=== PATIENT | male | born 1930 | race Caucasian/White ===

== ENCOUNTER 2017-02-22 12:05 | Emergency (ER) | payer MEDICARE, OTHER ==
[2017-02-22 13:33] VITALS: BP 162/70
--- NOTE | 2017-02-22 13:57 | UC ---
Hand/Wrist HPI - HPI Summary HPI Summary: 86 yo male with 6-8 + weeks of progressively worsening right arm swelling/ redness has weeped no f/c no trauma has fistula in right arm in anticipation of dialysis down the road placed >6 months ago had doppler study 2 weeks ago [facility]...reportedly no clot - History Of Current Complaint Chief Complaint: UCSkin Stated Complaint: RIGHT WRIST RED,SWOLLEN,WARM Time Seen by Provider: 02/22/17 13:27 Hx Obtained From: Patient Onset/Duration: Sudden Onset, Lasting Weeks Severity Initially: Mild Severity Currently: Mild Pain Intensity: 3 - mid forearm Pain Scale Used: 0-10 Numeric Character Of Pain: Dull Aggravating Factor(s): Other - touch Associated Signs And Symptoms: Positive: Swelling, Redness Related History: Dominant Hand Right - Allergies/Home Medications Allergies/Adverse Reactions: Allergies Allergy/AdvReac Type Severity Reaction Status Date / Time No Known Allergies Allergy Verified 02/22/17 13:22 Home Medications: Home Medications ALPRAZolam TAB* [Xanax TAB*] 0.25 mg PO Q6H PRN 02/22/17 [History Confirmed ] Calcium Polycarbophil [Fiber Tabs] 0.52 gm PO Q4H 02/22/17 [History Confirmed ] Diphenhydramine HCl 50 mg PO BEDTIME 02/22/17 [History Confirmed 02/22/17] Lactobacillus [Probiotic] 1 cap PO DAILY 02/22/17 [History Confirmed 02/22/17] Magnesium [Magnesium] 400 mg PO BID 02/22/17 [History Confirmed 02/22/17] Megestrol Acetate (Appetite) [Megestrol Acetate] 625 mg PO DAILY 02/22/17 [ History Confirmed 02/22/17] Nebivolol TAB (NF) [Bystolic TAB (NF)] 5 mg PO DAILY 02/22/17 [History Confirmed 02/22/17] Omeprazole CAP* [Prilosec CAP* 20 MG] 20 mg PO DAILY 02/22/17 [History Confirmed 02/22/17] PMH/Surg Hx/FS Hx/Imm Hx Previously Healthy: Yes Cardiovascular History: Hypertension GI/ History: Renal Disease - Surgical History Surgical History: Yes Surgery Procedure, Year, and Place: 1948 left nephrectomy; cervical discectomy ; endarectomy left carotid 11/10, bladder tumor removed 1979, turp 1982, right carotid stent 04/07,esophageal stretching in and AND 2015, bilat cataract , anemia. surgery 01/10 - Family History Known Family History: Positive: Cardiac Disease, Hypertension - Social History Alcohol Use: Daily Alcohol Amount: vodka Substance Use Type: None Smoking Status (MU): Former Smoker Type: Cigarettes Amount Used/How Often: 1 pack/day Have You Smoked in the Last Year: No When Did the Patient Quit Smoking/Using Tobacco: 1979 - Immunization History Most Recent Influenza Vaccination: 2012 Review of Systems Constitutional: Negative Skin: Negative Eyes: Negative ENT: Negative Respiratory: Negative Cardiovascular: Negative Gastrointestinal: Negative Genitourinary: Negative Motor: Negative Neurovascular: Negative Musculoskeletal: Edema, Myalgia Neurological: Negative Psychological: Negative All Other Systems Reviewed And Are Negative: Yes Physical Exam Triage Information Reviewed: Yes Appearance: Well-Appearing, No Pain Distress, Well-Nourished Vital Signs: Initial Vital Signs Temp 98.1 F 02/22/17 13:23 Pulse 63 02/22/17 13:23 Resp 20 02/22/17 13:23 BP 162/70 02/22/17 13:23 Pulse Ox 100 02/22/17 13:23 Vital Signs Reviewed: Yes Eyes: Positive: Conjunctiva Clear ENT: Negative: Hearing grossly normal, Nasal congestion, Nasal drainage, Trismus , Muffled/hoarse voice Neck: Positive: Supple, Nontender, No Lymphadenopathy Respiratory: Positive: No respiratory distress, No accessory muscle use, Crackles - R>L. Negative: Lungs clear Cardiovascular: Positive: RRR Musculoskeletal: Positive: Edema @ Neurological: Positive: Alert Psychological Exam: Normal Skin Exam: Other - see image Hand/Wrist Course/Dx - Course Course Of Treatment: Pt refuses to go to ER. States he went there and was already worked up - Differential Dx/Diagnosis Provider Diagnoses: Lymphedema right arm. cellulitis. ? pneumonia Discharge - Discharge Plan Condition: Stable Disposition: HOME Prescriptions: Amoxicillin/Clavulanate TAB* [Augmentin TAB 500 mg*] 500 mg PO BID #14 tab Patient Education Materials: Cellulitis (ED), Lymphedema (ED), Pneumonia (ED) Referrals: Meliton Sheriff MD [Primary Care Provider] - 3 Days Additional Instructions: if you change your mind I suggest you go to the ER for further evaluation Images Front/Back of Body, Lg (Moffat): 1 - marked edema and redness from here down
--- NOTE | 2017-02-22 14:07 | RAD ---
Indication: Right arm swelling. 2 views of the right arm demonstrates soft tissue swelling especially in the ulnar aspect of the elbow. No fracture is identified. Degenerative changes of the radiocarpal joint is noted. IMPRESSION: Soft tissue swelling especially in the ulnar aspect without fracture.
--- NOTE | 2017-02-22 14:09 | RAD ---
INDICATION: Right-sided rales COMPARISON: January 23, 2016 TECHNIQUE: PA and lateral dual-energy views were obtained. FINDINGS: Bones/Soft Tissues: There are no acute bony findings. Cardiomediastinal: The cardiomediastinal silhouette is normal. There may some calcifications compatible with old granulomatous disease Lungs: There are bibasilar infiltrates left greater than right. There is hyperinflation with presumed chronic interstitial changes Pleura: Suspect tiny bilateral effusions. Other: Partial eventration right hemidiaphragm, unchanged IMPRESSION: RADIOGRAPHIC ADMINISTRATIONS OF COPD WITH CHRONIC INTERSTITIAL CHANGES. NEW BIBASAL INFILTRATES. SUGGEST FOLLOW-UP.
== END 2017-02-22 14:33 | disposition home or self-care (01) ==
LOC: UCCORT 12:05
DX: I89.0 Lymphedema, not elsewhere classified (principal); L03.113 Cellulitis of right upper limb; I10 Essential (primary) hypertension; N28.9 Disorder of kidney and ureter, unspecified; Z90.5 Acquired absence of kidney; Z98.42 Cataract extraction status, left eye; Z98.41 Cataract extraction status, right eye; Z87.891 Personal history of nicotine dependence
CPT/HCPCS: 71020; 99212; G0463

== ENCOUNTER 2017-06-05 06:13 | Day surgery (SDC) | payer MEDICARE, BC ==
--- NOTE | 2017-05-09 16:03 | HP ---
CC: Dr. Ward * PREOPERATIVE HISTORY AND PHYSICAL: DATE OF SURGERY: 05/22/17 This patient is scheduled for same-day surgery admission by Dr. Abad on 05/22/17. ATTENDING SURGEON: Dominick Abad MD *(dictated by Pily Strickland NP). CHIEF COMPLAINT: Chronic kidney disease. HISTORY OF PRESENT ILLNESS: The patient is an 87-year-old male referred to Dr. Abad by Dr. Pisano for consideration for laparoscopic placement of peritoneal dialysis catheter. The patient has been suffering with chronic kidney disease; he underwent placement of an AV fistula in the right upper extremity in December 2015 and this is functioning well, but has never been accessed for the purpose of hemodialysis. The patient still urinates and his creatinine is followed regularly through Dr. Ward's office. The most recent creatinine level on 02/16, was 2.24 and it has been within that range since December 2016. The patient is strongly considering his options of dialysis and prefers the idea of peritoneal dialysis that he can do at home. His accompanied him to the appointment today and is participating in the education related to peritoneal dialysis. Dr. Abad examined the patient and discussed the nature of laparoscopic peritoneal dialysis catheter placement and has recommended buried dialysis catheter placement. Dr. Abad outlined the relevant risks, benefits, and alternatives. Today, I reviewed the typical same-day surgery and the postoperative care and recovery. The patient and his has had a chance to ask questions and stated that they understand the information and are satisfied with the answers given to their questions. The patient will sign consent on the day of surgery. 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 diff; hypertension, irritable bowel syndrome, renal artery stenosis and chronic kidney disease; the patient also has spinal issues and underwent multiple procedures and steroid injections for this. PAST SURGICAL HISTORY: Left nephrectomy around 1949, transurethral resection for bladder cancer and followup radiation in 1979; anterior cervical diskectomy in 1997; AV fistula right upper extremity December 2015; right carotid artery stent 2005; left carotid endarterectomy with patch 2010; cataract surgery 2010, endoscopy with stretching of the esophagus 2011. MEDICATIONS: 1. Aggrenox 200/25 mg one tablet p.o. b.i.d. and the patient was advised to hold the Aggrenox for 5 days preoperatively and take the last dose 05/16/17. 2. Allopurinol 100 mg daily. 3. Amiloride 5 mg b.i.d. 4. Bystolic 5 mg daily. 5. Calcitriol 0.25 mcg daily. 6. Crestor 5 mg daily. 7. Bentyl 20 mg up to 4 tablets daily. 8. Diphenhydramine 50 mg 1 to 2 at bedtime. 9. Omeprazole 20 mg p.o. b.i.d. 10. Hydrocodone 10/300 mg p.r.n. back pain. 11. Ranitidine 75 mg p.o. p.r.n. He takes the following supplements: 1. Fiber capsule. 2. Fish oil. 3. Magnesium oxide. 4. Multivitamin. 5. Probiotic capsule. 6. Lactate; he also takes megestrol 625 mg/5 mL daily. 7. He uses hydroxyzine 25 mg p.r.n. 8. Simethicone 1 tablet at bedtime. ALLERGIES: No known drug allergies. FAMILY HISTORY: No known anesthesia complications, bleeding tendencies, or clotting disorders. SOCIAL HISTORY: He is and his accompanies him to the visit today. He is a former smoker of a pack a day for 30 years and quit in 1979. He occasionally drinks alcohol. 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 REVIEW OF SYSTEMS: Constitutional: He reports feeling generally weak especially if he tries to stand for prolonged periods of time. He suffers from low back pain; he uses a cane for stability; his states that he has had several episodes of falling; he states that his left hand and his left lower extremity are weaker than the right. Endocrine: No diabetes or thyroid disease. Hematologic: No easy bruising or bleeding. No history of deep vein thrombosis or pulmonary embolism. He believes that he had blood transfusions in 2005. Respiratory: He has a dry cough and audible bibasilar rales; preoperative chest x-ray PA and lateral 05/08/17, revealed mild basilar interstitial edema, stigmata of COPD and emphysema. No pleural effusion or pneumothorax. Cardiovascular: No anginal chest pain. No syncopal episodes. History of carotid artery stenosis with stenting and endarterectomy and patch as described in past surgical history. Gastrointestinal: No nausea or vomiting. He reports a history of C. diff in November 2015; currently he is coping with loose stools and using Lomotil. His appetite is fair. He suffers from GERD. Genitourinary: He continues to be able to urinate and is followed by Dr. Ward for chronic kidney disease. 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 Uses a cane for stability. Skin: No ulcerations. Neurologic: No headache or blurred vision. Gait is somewhat unsteady; he has a tendency to fall. He requires assistance with transfers from chair to exam table. General: No previous anesthesia complications. He wears bilateral hearing aids. PHYSICAL EXAMINATION GENERAL SURVEY: The patient is an 87-year-old male, well developed, well nourished, in no acute distress. VITAL SIGNS: Height 67 inches, weight 130 pounds, body mass index 20.4. Blood pressure 150/70, pulse 66 and regular, respiratory rate 16, and temperature 98.5. HEENT: Benign. NECK: Supple. No cervical lymphadenopathy. LUNGS: Audible bibasilar rales. No wheezes. Upper lung chavez are clear. HEART: Regular rate and rhythm. No murmurs or rubs appreciated. ABDOMEN: Active bowel sounds. Well-healed left upper quadrant incision consistent with retroperitoneal approach for left nephrectomy. Soft, nondistended, and nontender throughout. No obvious masses, organomegaly or abdominal wall hernias. BACK: No CVA tenderness. EXTREMITIES: Warm and without edema. The right upper extremity has an AV fistula with a palpable thrill and audible bruit. The left handgrip is weaker than the right. The patient is somewhat unsteady and uses a cane for stability. The lower extremities are without edema. GENITALIA EXAM: Deferred. RECTAL EXAM: Deferred. NEUROLOGIC: Alert and oriented x3. SKIN: Warm, dry, and intact. IMPRESSION: End-stage renal disease. PLAN: Same-day surgery admission to Dr. Abad's service on 05/22/17 , for a laparoscopic placement of buried peritoneal dialysis catheter. NELA STRICKLAND, CARPET FLOOR LAYER APPRENTICE [id number]/[facility] #: [id number] DARRYL
[~2017-06-05 06:13] MED LIST: Buffered Lidocaine 0.9% SYRIN* 5 ML/SYR SYRINGE INTRADERM ONE; Dexamethasone IV* 4 MG/ML 1 ML (4 MG) IV SLOW PU ONE; Famotidine IV* 10 MG/ML 2 ML (20 mg) IV ONE; NS 0.45% 1000 ML BAG* 1,000 ML IV SCH
[2017-06-05] MEDS ORDERED: Buffered Lidocaine 0.9% SYRIN* 5 ML/SYR SYRINGE ONE (06:30)
[2017-06-05] MEDS ORDERED: Dexamethasone IV* 4 MG/ML 1 ML (4 MG) ONE (06:30)
[2017-06-05] MEDS ORDERED: Famotidine IV* 10 MG/ML 2 ML (20 mg) ONE (06:30)
[2017-06-05] MEDS ORDERED: Heparin VIAL(*) 5000 UNITS/ML VIAL (FIVE THOUSAND) ONE (06:30)
[2017-06-05] MEDS ORDERED: ceFAZolin 2 GM PREMIX (*) 50 ML IVPB ONE (06:30)
[2017-06-05] MEDS ORDERED: Bupivacaine 0.25% SDV* 30 ML ONE (07:14)
[2017-06-05] MEDS ORDERED: Heparin DIALYSIS ONLY(*) 1,000 UNITS/ML VIAL ONE (07:15)
--- NOTE | 2017-06-05 09:20 | SURGPN ---
Brief Operative Note - Surgery Procedures: Procedures Pre-OP Diagnoses: ESRD Post-op Diagnosis: same Procedure: Laparoscopic placement of peritoneal dialysis catheter Surgeon: Pollo Asst: none Anethesia: STEFANIE EBL: minimal IVF: minimal Specimen: none Drains: 57cm curlcath
[2017-06-05] MEDS ORDERED: Ondansetron INJ* 2 MG/ML VIAL IV PRN (09:23)
[2017-06-05] MEDS ORDERED: fentaNYL* 50 MCG/ML 2 ML VIAL (100 MCG VIAL) IV PRN (09:23)
[2017-06-05 10:26] VITALS: BP 172/63
--- NOTE | 2017-06-20 04:38 | OP ---
CC: Dr. Matthew Ward * DATE OF OPERATION: 06/05/17 - [facility] DATE OF : 32 SURGEON: Dominick Abad MD SCHEDULE MAKER: None. ANESTHESIOLOGIST: Amado Carrillo MD ANESTHESIA: General. PRE-OP DIAGNOSIS: End-stage renal disease. POST-OP DIAGNOSIS: End-stage renal disease. OPERATIVE PROCEDURE: Laparoscopic placement of peritoneal dialysis catheter. ESTIMATED BLOOD LOSS: Minimal. IV FLUIDS: Minimal. SPECIMEN: None. DRAINS: A 57 cm Curl Cath placed intraabdominally. DESCRIPTION OF PROCEDURE: The patient was identified in the preoperative area. Consent signed. The patient was marked, brought to the operating room and placed on the operating table in a supine position. Preoperative antibiotics were given. Sequential devices were placed on bilateral lower extremities. General anesthesia was induced. The patient's abdomen was prepped and draped in a standard surgical fashion. A time-out was performed. A subcostal incision on the left upper quadrant was made. This was deepened down the anterior fascia, which was elevated, and a Veress needle inserted into the abdominal cavity, which was allowed to insufflate to a pressure of 15 mmHg. The patient tolerated the insufflation well. A Veress needle was removed and then a 8-mm trocar was inserted. Laparoscope was inserted through this and there was no evidence of injury with the trocar insertion or with the Veress needle. Review of the abdomen showed omental attachments to the right lower quadrant and the midline. Additional trocars were then placed in the following position, a 5 mm in the left lower quadrant. The patient was placed in a Trendelenburg position and review of the pelvis showed scant amount of free fluid. The small bowel was pink and viable without any significant adhesions. Decision was made that the patient would not require an omentopexy because of the omentum already attached to the right lower quadrant and midline. Next, a 57 cm Curl Cath was opened up, it was inserted into the abdominal cavity through the 8 mm trocar, placed into the deep pelvis. Next, a 5 mm trocar was inserted by tunneling this along the left rectus muscle. This tubing was grasped and brought out through this site ensuring that both cuffs were within the abdominal wall. Next, the trocar was removed. The tubing was then tunnelled superiorly and then inferiorly to the point on the skin that we had chosen while the patient was in the preoperative area, marking and knowing his belt line. We then hooked the tubing up to dialysate, which infused with ease and also drained with similar ease. We then allowed the abdomen to collapse and the left upper quadrant port site was reapproximated with 0 Polysorb suture and all incisions were reapproximated with 4- 0 Monocryl and subcuticular sutures. Steri-Strips and sterile dressing were applied. The patient tolerated the procedure well, was transferred to the PACU in stable condition. [id number]/[facility] #: [id number] MTDD
== END 2017-06-05 11:02 | disposition home or self-care (01) ==
LOC: OR 06:13
PROVIDERS: ATTEND Surgery
DX: I12.0 Hypertensive chronic kidney disease with stage 5 chronic kidney disease or end stage renal disease (principal); N18.6 End stage renal disease; Z99.2 Dependence on renal dialysis; I69.354 Hemiplegia and hemiparesis following cerebral infarction affecting left non-dominant side; M10.9 Gout, unspecified; K21.9 Gastro-esophageal reflux disease without esophagitis; J44.9 Chronic obstructive pulmonary disease, unspecified; I73.00 Raynaud's syndrome without gangrene; Z79.02 Long term (current) use of antithrombotics/antiplatelets; Z87.891 Personal history of nicotine dependence; Z85.51 Personal history of malignant neoplasm of bladder
CPT/HCPCS: J0690; J1100; J1644

== ENCOUNTER 2017-11-21 13:20 | Emergency (ER) | payer MEDICARE, BC ==
[2017-11-21 15:28] VITALS: BP 133/38
--- NOTE | 2017-11-21 15:50 | UC ---
Skin Complaint HPI - HPI Summary HPI Summary: 87 year old male with right hand complaint. woke up 2 nights ago in the middle of the night with pain in the right wrist. since then the pain continues and now the hand is swollen and warm. HIs states that he has a hx of gout in the right wrist. The patient has a HD fistula in the right AC. It is not used because he does peritoneal dialysis. The fistula was placed by Dr Velasquez at [facility] in [place]. The Fistula has positive Bruit and Thrill. Pos, strong radial pulse right side, equal to left. Cap refill less than 3 seconds right hand. patient has hx of Raynauds so left fingers are blue and cold. The last time he had gout he was treated by [facility]. His is mostly concerned that he has Gout again. He has taken Vicodin which helps some. Last time the hand swelling went all the way up to the shoulder but this time just at the wrist and beyond that. has had some coffee cake more than normal as of recent. no SOB above and beyond normal as he has COPD. no fever. [ End ] - History of Current Complaint Chief Complaint: UCUpperExtremity Stated Complaint: RIGHT HAND POSSIBLE GOUT Hx Obtained From: Patient, Family/Forepart Rounder Onset/Duration: Gradual Onset Skin Exposure Onset/Duration: Weeks Ago Timing: Constant Onset Severity: Mild Current Severity: Moderate Pain Intensity: 8 - Allergy/Home Medications Allergies/Adverse Reactions: Allergies Allergy/AdvReac Type Severity Reaction Status Date / Time lactose Allergy GI Upset Verified 11/21/17 15:29 Home Medications: Home Medications ALPRAZolam TAB* [Xanax TAB*] 0.25 mg PO Q6H PRN 11/21/17 [History Confirmed ] FLUoxetine CAP* [PROzac CAP*] 20 mg PO DAILY 11/21/17 [History Confirmed ] Fluticasone/Vilanterol MDI(NF) [Breo Ellipta MDI (NF)] 1 puff INH DAILY [History Confirmed 11/21/17] Nebivolol (NF) [Bystolic (NF)] 10 mg PO DAILY 11/21/17 [History Confirmed ] Umeclidin 62.5 MDI(NF) [Incruse ELLIPTA MDI (NF)] 62.5 mcg IN DAILY 11/21/17 [ History Confirmed 11/21/17] Review of Systems Skin: Other - right hand redness and pain with swelling Is Patient Immunocompromised?: No All Other Systems Reviewed And Are Negative: Yes PMH/Surg Hx/FS Hx/Imm Hx Previously Healthy: Yes Endocrine History: Dyslipidemia Cardiovascular History: Cardiac Disease, Hypertension GI/ History: Gastroesophageal Reflux, Renal Disease Psychological History: Anxiety, Depression - Surgical History Surgical History: Yes Surgery Procedure, Year, and Place: Right Arm HD fistula 12/2015. 194 left nephrectomy. cervical discectomy . endarectomy left carotid 11/10. bladder tumor removed 1979. turp 1982. right carotid stent 04/07. esophageal stretching in and AND 2015, bilat cataract. anemia surgery 01/10 - Family History Known Family History: Positive: Cardiac Disease, Hypertension - Social History Occupation: Retired Lives: With Family Alcohol Use: None Alcohol Amount: vodka Substance Use Type: None Smoking Status (MU): Former Smoker Type: Cigarettes Amount Used/How Often: 1 pack/day Have You Smoked in the Last Year: No When Did the Patient Quit Smoking/Using Tobacco: quit 1979 - Immunization History Most Recent Influenza Vaccination: 2012 Physical Exam Triage Information Reviewed: Yes Appearance: Well-Appearing, No Pain Distress, Well-Nourished Vital Signs: Initial Vital Signs Temp 98.6 F 11/21/17 15:13 Pulse 85 11/21/17 15:13 Resp 16 11/21/17 15:13 BP 133/38 11/21/17 15:13 Pulse Ox 100 11/21/17 15:13 Vital Signs Reviewed: Yes Eye Exam: Normal ENT Exam: Normal Respiratory Exam: Normal Cardiovascular Exam: Normal Abdominal Exam: Normal Musculoskeletal: Positive: ROM Limited @, Edema @ - right hand Neurological Exam: Normal Psychological Exam: Normal Skin: Positive: Other - right hand with swelling, redness, tenderness to palpation. cap refill < 3 sec. peripheral pulses brisk and intact. 2(+) pitting edema in the wrist. normal proximal to that. no edema in the legs. Course/Dx - Course Course Of Treatment: With history per patient and of gout that was actual worse than this. They are aware we can not perform sono or do labs to rule out DVT / infection but want to try prednisone as he states he did in the past and it worked well. They are aware this is not a thorough work up but do not want to go to ED and will try this treatment but if any pain, redness, fever, swelling presents itself / worsens then they will go to [facility] [place]. They angélica try to see PCP in one day. They state there labs have been good as he gets them multiple times a week and had thorough labs 11 days ago - Diagnoses Provider Diagnoses: Gout right hand Discharge - Sign-Out/Discharge Documenting (check all that apply): Discharge - Discharge Plan Condition: Good Disposition: HOME Prescriptions: predniSONE TAB* [Deltasone TAB*] 40 mg PO DAILY 5 Days #10 tab Patient Education Materials: Gout (ED) Referrals: Meliton Sheriff MD [Primary Care Provider] - 1 Day Additional Instructions: If you develop fever, more fatigue, increased shortness of breath or the redness spreads up the arm please go to the Emergency room - Billing Disposition and Condition Condition: GOOD Disposition: HOME
== END 2017-11-21 16:01 | disposition home or self-care (01) ==
LOC: UCCORT 13:20
DX: M10.9 Gout, unspecified (principal); I10 Essential (primary) hypertension; F41.8 Other specified anxiety disorders; Z87.891 Personal history of nicotine dependence
CPT/HCPCS: 99213; G0463

== ENCOUNTER 2018-03-20 10:23 | Inpatient (IN) | payer MEDICARE, BC ==
--- NOTE | 2018-03-20 10:39 | ED ---
Complex/Multi-Sys Presentation - HPI Summary HPI Summary: 88 y/o male presents to the ED c/o 1x episode of vomiting this morning, in bed. Pt states he has been "feeling lousy" today. Associated sx: ABD discomfort in the mid ABD, confusion for the last few days. Pt's states pt has been increasingly forgetful. Denies CP. PMHx peritoneal dialysis (every night for 10 hours), started in Oct 2017. Pt had a cardiac cath (no stent) placed at [facility] placed last week. - History Of Current Complaint Chief Complaint: EDNauseaVomitDiarrh Time Seen by Provider: 03/20/18 10:31 Hx Obtained From: Patient Onset/Duration: Sudden Onset Location: Pain At: - mid ABD Associated Signs And Symptoms: Positive: Vomiting, Abdominal Pain, Other - confusion - Allergies/Home Medications Allergies/Adverse Reactions: Allergies Allergy/AdvReac Type Severity Reaction Status Date / Time lactose Allergy GI Upset Verified 11/21/17 15:29 Home Medications: Home Medications Aspirin [Ecotrin] 81 mg PO DAILY 03/20/18 [History Confirmed 03/20/18] Clopidogrel TAB* [Plavix TAB*] 1 tab PO DAILY 03/20/18 [History Confirmed ] Fluticasone/Vilanterol MDI(NF) [Breo Ellipta MDI 100/25(NF)] 1 puff PO DAILY [History Confirmed 03/20/18] Mupirocin 2% OINT* [Bactroban 2 % Oint*] 1 applic TOPICAL DAILY 03/20/18 [ History Confirmed 03/20/18] Nitroglycerin 0.4 mg SL Q5M PRN 03/20/18 [History Confirmed 03/20/18] Sodium Bicarbonate 1 tab PO DAILY 03/20/18 [History Confirmed 03/20/18] predniSONE TAB* [Deltasone TAB*] 5 mg PO DAILY 03/20/18 [History Confirmed 03/20] raNITIdine HCl [Zantac] 1 tab PO DAILY 03/20/18 [History Confirmed 03/20/18] PMH/Surg Hx/FS Hx/Imm Hx Previously Healthy: No Endocrine/Hematology History: Reports: Hx Anemia Denies: Hx Diabetes, Hx Systemic Lupus Erythematosus Cardiovascular History: Reports: Hx Coronary Artery Disease, Hx Hypertension Denies: Hx Congestive Heart Failure, Hx Pacemaker/ICD, Other Cardiovascular Problems/Disorders Respiratory History: Reports: Other Respiratory Problems/Disorders - ex smoker/ copd GI History: Reports: Hx Diverticulosis, Hx Gastroesophageal Reflux Disease - on meds, Hx Gastrointestinal Bleed - with diverticulitis, Hx Irritable Bowel - possible, Other GI Disorders - hsx of gi bleed 2nd to diverticulitis, esophogeal stretchingx2 History: Reports: Hx Renal Disease, Other Problems/Disorders - left nephrectomy 1949, bladder [id number] Denies: Hx Dialysis Musculoskeletal History: Reports: Hx Arthritis - back, shoulders, Hx Gout, Other Musculoskeletal History - hx of injections and L/R ablation L-4 L-5 S-1, osteo in left foot Denies: Hx Rheumatoid Arthritis Sensory History: Reports: Hx Cataracts - surgery bilat 2010, Hx Contacts or Glasses, Hx Hearing Aid Opthamlomology History: Reports: Hx Cataracts - surgery bilat 2010, Hx Contacts or Glasses Neurological History: Reports: Other Neuro Impairments/Disorders - PAIN CLINIC PATIENT Psychiatric History: Reports: Hx Anxiety - 10 years ago Denies: Hx Panic Disorder - Cancer History Cancer Type, Location and Year: BLADDER Hx Chemotherapy: No - Surgical History Surgery Procedure, Year, and Place: Right Arm HD fistula 12/2015. 194 left nephrectomy. cervical discectomy . endarectomy left carotid 11/10. bladder tumor removed 1979. turp 1982. right carotid stent 04/07. esophageal stretching in and AND 2015, bilat cataract. anemia surgery 01/10 Hx Anesthesia Reactions: No Infectious Disease History: No Infectious Disease History: Reports: Hx Clostridium Difficile, Hx Shingles Denies: Hx Hepatitis, Hx Human Immunodeficiency Virus (HIV), Hx of Known/ Suspected MRSA, Hx Tuberculosis, Hx Known/Suspected VRE, Hx Known/Suspected VRSA , History Other Infectious Disease, Traveled Outside the [place] in Last 30 Days - Family History Known Family History: Positive: None, Cardiac Disease, Hypertension - Social History Alcohol Use: None Alcohol Amount: vodka Substance Use Type: Reports: None Smoking Status (MU): Former Smoker Type: Cigarettes Amount Used/How Often: 1 pack/day Have You Smoked in the Last Year: No Review of Systems Constitutional: Negative Eyes: Negative ENT: Negative Cardiovascular: Negative Respiratory: Negative Positive: Abdominal Pain, Vomiting Genitourinary: Negative Musculoskeletal: Negative Skin: Negative Neurological: Other - confusion Psychological: Normal All Other Systems Reviewed And Are Negative: Yes Physical Exam - Summary Physical Exam Summary: Appearance: Ill-appearing, frail Skin: Warm Eyes: Normal ENT: Normal Neck: Supple, nontender Respiratory: Diffuse crackles in R lung. Cardiovascular: Mild bradycardia, HR in the high 50's, regular rhythm. Normal S1 , S2. Abdomen: Soft, nontender Musculoskeletal: Normal, Strength/ROM Intact. No peripheral edema. Neurological: Normal, A&Ox3 Psychiatric: Normal General: No acute distress Triage Information Reviewed: Yes Vital Signs On Initial Exam: Initial Vitals Temp Pulse Resp BP Pulse Ox 98.3 F 61 16 115/46 98 03/20/18 10:33 03/20/18 10:33 03/20/18 10:33 03/20/18 10:33 03/20/18 10:33 Vital Signs Reviewed: Yes Diagnostics - Vital Signs Vital Signs Temp Pulse Resp BP Pulse Ox 03/20/18 10:33 98.3 F 61 16 115/46 98 - Laboratory Result Diagrams: 03/20/18 12:08 03/20/18 12:08 Lab Statement: Any lab studies that have been ordered have been reviewed, and results considered in the medical decision making process. - Radiology CXR Xray Interpretation: Positive (See Comments) - RIGHT GREATER THAN LEFT BIBASILAR CONSOLIDATION. RECOMMEND FOLLOW-UP UNTIL RESOLUTION TO EXCLUDE UNDERLYING PULMONARY PARENCHYMAL PATHOLOGY. Radiology Interpretation Completed By: Radiologist - Additional Comments Diagnostic Additional Comments: EKG 1 - 11:11 - Sinus bradycardia @ [address] T changes, No T wave inversions. Low voltage Complex Multi-Symp Course/Dx Course Of Treatment: Pt has BNP 600's,blunting of B/L costophernic angles, and on peritoneal dialysis. Will need medical management for acute CHF and ESRD which may be related, and in exacerabtion. Accepted for admission under Dr. Danielle Pisano @ 13:00 - Diagnoses Provider Diagnoses: CHF (congestive heart failure), ESRD (end stage renal disease) on dialysis Discharge - Sign-Out/Discharge Documenting (check all that apply): Patient Departure - Discharge Plan Condition: Stable Disposition: ADMITTED TO [facility] - Billing Disposition and Condition Condition: STABLE Disposition: Admitted to [facility]
[2018-03-20] MEDS ORDERED: Ondansetron ODT TAB* 4 MG PO ONE (11:33)
--- NOTE | 2018-03-20 11:52 | RAD ---
HISTORY: left lung crackles COMPARISONS: May 08, 2017 VIEWS: 4: Frontal dual-energy and lateral views of the chest. FINDINGS: CARDIOMEDIASTINAL SILHOUETTE: The cardiomediastinal silhouette is normal. DEE: The dee are normal. PLEURA: The costophrenic angles are sharp. No pleural abnormalities are noted. LUNG PARENCHYMA: There is patchy alveolar opacification of the lung bases bilaterally, greater on the right than on the left. ABDOMEN: The upper abdomen is clear. There is no subphrenic gas. BONES AND SOFT TISSUES: No bone or soft tissue abnormalities are noted. OTHER: None. IMPRESSION: RIGHT GREATER THAN LEFT BIBASILAR CONSOLIDATION. RECOMMEND FOLLOW-UP UNTIL RESOLUTION TO EXCLUDE UNDERLYING PULMONARY PARENCHYMAL PATHOLOGY.
[2018-03-20 12:18] LABS: ABS Basophils 0 10^3/ul (0-0.2); ABS Eosinophils 0 10^3/ul (0-0.6); ABS Lymphocytes 0.6 10^3/ul (1.0-4.8); ABS Monocytes 0.5 10^3/ul (0-0.8); ABS Neutrophils 6.9 10^3/ul (1.5-7.7); ABS Nucleated RBC 0 10^3/ul; Eosinophil % 0.1 % (0-6); Hematocrit 33 % (42-52); Hemoglobin 10.7 g/dl (14.0-18.0); Lymphocyte % 7.8 % (25-47); Mean Corpuscular HGB Conc 33 g/dl (31-36); Mean Corpuscular Hemoglobin 33 pg (27-31); Mean Corpuscular Volume 100 fL (80-94); Mean Platelet Volume 6.1 um3 (7.4-10.4); Nucleated Red Blood Cells % 0.1; Platelet Count 209 10^3/ul (150-450); Red Blood Count 3.27 10^6/ul (4.00-5.40); Red Cell Distribution Width 15 % (10.5-15); White Blood Count 8.1 10^3/ul (3.5-10.8)
[2018-03-20 12:33] LABS: EGFR Non-African American 16.6 (>60)
[2018-03-20] MEDS ORDERED: NS 0.9% 500 ML* 500 ML IV ONE (13:49)
[2018-03-20] MEDS ORDERED: Albuterol 2.5 MG/3 ML NEB.SOL* (0.083%) INH PRN (13:49)
[2018-03-20] MEDS ORDERED: Acetaminophen TAB* 325 MG PO PRN (13:49)
[2018-03-20] MEDS ORDERED: Potassium Chlor TAB* 20 MEQ TAB.ER PO ONE (13:49)
[2018-03-20] MEDS ORDERED: Albuterol/Ipratropium NEB.SOL* Albuterol 2.5 MG/Ipratropium 0.5 MG 3 ML INH SCH ×2 (14:00→19:00)
[2018-03-20] MEDS ORDERED: predniSONE TAB* 20 MG PO SCH (14:00)
[2018-03-20] MEDS ORDERED: Cefepime 1 GM in Dextrose(*) 1 GM/50 ML BAG IV SCH (14:00)
[2018-03-20] MEDS ORDERED: Vancomycin per Pharmacy* NOTE FOLLOW UP SCH (14:00)
[2018-03-20] MEDS ORDERED: metroNIDAZOLE IV 500 MG/100ML* 500 MG/100 ML BAG IVPB SCH (14:00)
[2018-03-20] MEDS ORDERED: metroNIDAZOLE IV 500 MG/100ML* 500 MG/100 ML BAG IVPB ONE (14:40)
[2018-03-20] MEDS ORDERED: Vancomycin(*) 1,000 MG in NS 0.9% 250 ML* 250 ML IVPB ONE (15:00)
--- NOTE | 2018-03-20 16:05 | RAD ---
INDICATION: 88-year-old presents to the emergency department with Rales . Renal failure. Abdominal pain. COMPARISON: Chest x-ray same date TECHNIQUE: Axial source images were obtained from the thoracic inlet to the symphysis pubis following administration of oral contrast only as requested Coronal and sagittal reconstructed images were acquired. CHEST FINDINGS: Neck/thyroid: The visualized neck to include the thyroid appear normal. Chest wall: There are no acute abnormalities of the bony thorax or chest wall. There is no supraclavicular, infraclavicular, or axillary lymphadenopathy. Lungs : There is reticulonodular infiltrative change in the lower lobes bilaterally and in the right upper lobe. There is peribronchial thickening or lung bases right greater than left. This likely reflects chronic change but follow-up is recommended. Cardiomediastinal structures: The heart is normal in size. There is no pericardial effusion. There is no evidence of aortic aneurysm or dissection. There are coronary artery calcifications. The pulmonary vessels appear normal. There is no mediastinal or hilar adenopathy. There are calcified missile lymph nodes consistent with old granulomatous disease. The esophagus appears normal. Pleura : There are no pleural-based masses or effusions. ABDOMINAL/PELVIC FINDINGS: Liver: The liver is normal in size. There are no masses on noncontrast evaluation. There is no ductal dilatation. Gallbladder: The gallbladder is contracted. There are probable gallstones. Spleen: There are splenic granulomas. There is no evidence of a mass on noncontrast evaluation. Pancreas: There is no evidence of pancreatic mass or ductal dilatation. Adrenal glands: There is no evidence of adrenal mass. Kidneys: Noncontrast CT appearance the right kidney is remarkable solely for vascular calcifications. There is left nephrectomy. Adenopathy: There is no evidence of adenopathy by size criteria. Fluid collections: There is a small amount of free fluid. The patient is on peritoneal dialysis. Vessels:There are atherosclerotic changes of the aorta. There is no focal aneurysm. There is probably a short segment distal aortic dissection. This likely chronic. The IVC is unremarkable GI tract: The oral contrast is confined to the stomach and proximal small bowel. There are multiple dilated loops of small bowel there are fluid-filled. The findings are compatible with a partial, mid small bowel obstruction. The transition zone appears to be deep within the pelvis. There is a small amount of air within the colon which is decompressed Pelvic organs: The prostate and seminal vesicles appear normal Bladder: There are no bladder masses. Abdominal and pelvic soft tissues: There is a peritoneal dialysis catheter entering from a lower left abdominal approach. Osseous structures: There are no acute osseous findings. IMPRESSION: 1. Partial small bowel obstruction. Suggest follow-up radiographs. 2. Reticulonodular infiltrates in lung bases. Suggest follow-up. 3. Probable gallstones in contracted gallbladder. 4. Evidence of old granulomatous disease. 5. Small amount of free fluid related to peritoneal dialysis.
[2018-03-20] MEDS ORDERED: Metoprolol Tartrate IV* 1 MG/ML 5 ML VIAL IV PRN (16:37)
--- NOTE | 2018-03-20 16:45 | PN ---
Hospitalist Progress Note Date of Service: 03/20/[address] finding of partial sbo, Pt to be NPO gentle hydration KUB in AM, patient is NOT actively vomiting, abd non distended, will hold ng tube for now, if vomits will place NG tube,
--- NOTE | 2018-03-20 17:59 | HP ---
CC: Dr. Sheriff; Dr. Ward; Dr. Albert * HISTORY AND PHYSICAL: DATE OF ADMISSION: 03/20/18 PRIMARY CARE PROVIDER: Dr. Sheriff. CONSULTING FAMILY AND CONSUMER EDUCATION TEACHER: Dr. Ward. CONSULTING INFECTIOUS DISEASE SPECIALIST: Dr. Albert. ATTENDING PROVIDER: Dr. Pisano * (DICTATED BY ACE JOE NP) CHIEF COMPLAINT: 1. Nausea. 2. Vomiting. HISTORY OF PRESENT ILLNESS: Mr. Farah is an 88-year-old male patient with pretty extensive past medical history. He has a history of end-stage renal disease, history of CVA, bladder cancer, carotid artery disease, history of renal artery stenosis, IBS, hypertension, gout, GERD, arthritis, history of CAD and COPD, who is coming into the ED today stating that this morning he woke up, he noted that he had brown foul material in his mouth, he spit it out, it came out and it looked like vomit. He says this was the first thing he noticed at 5: 00 this morning, he woke up like this. He says to his knowledge he had not been vomiting throughout the night and he had not vomited yesterday evening. He had been feeling well, fatigued, but no abdominal pain. He says his dialysate was noted to be clear he did note and his noted that he had a little bit more redness around that site. He denied having any chest pain or shortness of breath. He says he has had some abdominal discomfort to the lower abdomen. He says that he has been feeling short of breath for the last month to 2 months. There has been no coughing, no fevers, no chills that he is aware of. He states that he was concerned because of the vomit and he came in. There was no blood or coffee-ground emesis. He did have a bowel movement today. He says that he has not been noticing any diarrhea and again, he does have this lower abdominal cramping, but again, no cough or shortness of breath and no chills or fevers. He came in to the ED. There was concern his creatinine appeared to be worse and he appeared to be dehydrated. There was concern for chest x-ray findings as there was possible effusion or infiltrate in his right lower lobe. We were asked to evaluate for admission. PAST MEDICAL HISTORY: Significant for: 1. End-stage renal disease, on peritoneal dialysis. 2. Bladder cancer. 3. CVA. 4. Carotid artery disease. 5. Arthritis. 6. GERD. 7. Gout. 8. Hypertension. 9. IBS. 10. Renal artery stenosis. 11. CAD. 12. COPD. PAST SURGICAL HISTORY: 1. The patient has had bladder resection. 2. Right carotid artery stenting. 3. Left carotid endarterectomy. 4. Cardiac catheterization done 2 months ago at [facility] with angioplasty. 5. PD catheter placement. 6. Left kidney nephrectomy. 7. AV fistula to the right arm. MEDICATIONS: Home medications include: 1. Nitro 0.4 mg sublingual every 5 minutes x3 p.r.n. chest pain. 2. Bactroban 1 application topically to PD site. 3. Breo 1 puff inhaled daily. 4. Sodium bicarbonate 1 tablet daily. 5. Zantac 1 tablet p.o. daily. 6. Crestor 5 mg daily. 7. Prilosec 20 mg p.o. b.i.d. 8. Bystolic 10 mg p.o. daily. 9. Probiotic 1 capsule daily. 10. Multivitamin 1 tablet daily. 11. Megestrol acetate 625 mg p.o. daily. 12. Magnesium oxide 400 mg p.o. b.i.d. 13. Skippers 1 tablet every 6 hours as needed. 14. Fish oil 1000 mg p.o. b.i.d. 15. Diphenhydramine 25 mg p.o. at bedtime. 16. Dicyclomine 20 mg p.o. 4 times daily. 17. Plavix 1 tablet daily. 18. Calcitriol 1 tablet p.o. daily. 19. Aspirin 81 mg daily. 20. Amiloride 5 mg daily. 21. Allopurinol 100 mg p.o. daily. 22. Prednisone 5 mg daily. ALLERGIES TO MEDICATIONS: Include none. FAMILY HISTORY: His mother had bladder cancer. Father took his own life. SOCIAL HISTORY: The patient states he is a former smoker, quit in 1979. He does not drink. His surrogate decision maker is his . REVIEW OF SYSTEMS: There is no documented fever. He is denying any significant weight change. There was no double vision. He is denying having any ear discharge. He denies having any rhinorrhea and no sore throat, no thyroid enlargement and denies having any chest pain. There was abdominal pain per my HPI. There was 1 episode of nausea and vomiting. There has been no dysuria, no frequency. There has been no seizure, no loss of consciousness. No pruritus and no skin ulcerations. Review of 14 systems was completed, all others negative. PHYSICAL EXAMINATION GENERAL: At this time, Mr. Farah is an 88-year-old male patient. He is chronically ill-appearing. He is sitting in the ED stretcher. He does not appear to be in any acute distress. VITAL SIGNS: Blood pressure 117/45, pulse 59, respirations 16, O2 sat 93%, temperature 98.3. HEENT: Head: Atraumatic and normocephalic. Eyes: EOMs are intact. Sclerae anicteric and not pale. Throat: Oral mucosa appears to be dry. No oropharyngeal erythema. NECK: Supple. LUNGS: He had wheezing noted throughout bilaterally. He had crackles in his right base. He had equal diaphragmatic expansion. HEART: Sounds S1, S2. He had a regular rate and rhythm. No murmurs, rubs, or gallops. ABDOMEN: Soft. There was tenderness in the right lower and left lower quadrants. The PD catheter did have some erythema surrounding the site. No discharge was noted from the site, though however, he did have again tenderness along the lower quadrants. Bowel sounds were present. EXTREMITIES: Pulses were 2+ throughout. He is moving all 4 extremities. He is a little bit weaker on the left side from previous stroke, but again, no worse than his baseline. NEUROLOGICAL: Again, he is awake, alert, and oriented x3. Speech is clear. Tongue midline. Veneer Press Operator were equal, little weaker on the left. He had no obvious gross focal deficits. SKIN: Grossly intact. DIAGNOSTIC STUDIES/LAB DATA: His labs today are revealing a WBC of 8.1, RBC of 3.27, hemoglobin of 10.7, hematocrit of 33, platelet count of 209. Sodium 134, potassium 2.9, chloride of 94, bicarb 30, BUN 44. His creatinine is 3.51, which is elevated from his baseline of 2.6. His glucose 102, calcium 8.5, mag 2.3. Total bili 0.3, AST 24, ALT 17, alk phos 75. Troponin 0.03. His BNP was 639. Albumin of 2.6. TSH pending. He did have an EKG obtained today, which is showing a normal sinus rhythm with a PAC. He had no ST elevation noted. He does have T-wave flattening in V4, V5 , and V6 and also in II, III, and aVF. When you look back to the previous EKG, III and aVF were flat previously. The T-wave flattening in V4, V5 and V6 is now new. He did have a chest x-ray obtained today, which when I reviewed, I do appreciate what appears to be blunting of the costophrenic angle on the right side. It does look like there may be bilateral infiltrates. Radiology read it as right greater than left bibasilar consolidation, recommend followup for resolution of underlying pulmonary parenchymal pathology. Old medical records reviewed. ASSESSMENT AND PLAN: Mr. Farah is an 88-year-old male patient coming into the ED today with complaint of episode of vomiting this morning, waking up with vomit in his mouth. We were asked to evaluate for admission. He will be admitted under observation status for: 1. Question of aspiration pneumonitis. Again, on exam, he has wheezing and he has had crackles on the right side. X-ray is concerning for bilateral infiltrates. I am going to get a CT of the chest to better define this given his history of smoking. I am also going to put him on steroids, place him on cefepime and Flagyl to cover possible aspiration pneumonitis. I do have a call to Dr. Albert given his history of C. diff. He does have a left shift and we will place him on steroids. We will hydrate him. I will send off blood cultures. I will get Legionella and Strep pneumoniae antigens if we were able to and try to get a sputum culture from the patient as well and continue to follow him closely. 2. Abdominal discomfort. Again, I am concerned given the little bit redness around the catheter, I am placing him on vanco empirically for this. I did touch base with Dr. Ward who will evaluate the patient today. He is sending his nurse over for PD specimens to make sure there is no underlying peritonitis given his PD catheter. I will also CT the abdomen and pelvis. He is n.p.o. until this is performed. 3. Hypokalemia. I am replacing. I did touch base with Dr. Ward. 4. End-stage renal disease. His creatinine is a little bit worse. I am fearful that he is a little bit dry. I am going to give him fluids. We will repeat his labs in the morning and we will continue to monitor. 5. Bladder cancer. Follow up with his primary. 6. History of cerebrovascular accident and carotid artery disease. Continue aspirin, Plavix, statin therapy and secondary prevention. 7. Arthritis. Continue meds as prescribed. 8. Gastroesophageal reflux disease. Continue PPI therapy. He is also on an H2 brandon, continue with this. 9. Gout. Continue his allopurinol. 10. History of hypertension. His blood pressure has been in the one teens here. I suspect this was probably from dehydration. We will hold his diuretic that he is on. We will continue his beta-brandon with hold parameters. 11. Coronary artery disease. Continue aspirin, statin, beta-brandon therapy. I am going to try to get records from [facility] as far as his cath was about 2 months ago and we will continue to follow this. His EKG appears to be stable. There are no active signs of ischemia. He is not having any chest pain, so we will monitor. 12. Chronic obstructive pulmonary disease with exacerbation. He will be placed on again inhaled nebs standing with steroid and Dulera. 13. Renal artery stenosis. Continue his current medical regimen. 14. DVT prophylaxis: He is high risk. I will place him on heparin subcu. 15. Code status: Full code. 16. Fluids, electrolytes, and nutrition: N.p.o. pending CT abdomen and pelvis. TIME SPENT: Time spent on admission was 60 minutes, greater than half the time was spent [id number] with the patient obtaining my history and physical, other half of the time was spent going over the plan of care with the patient and implementing the plan of care. I discussed the plan of care with my attending, Dr. Pisano, she is in agreement. ACE JOE NP [id number]/[facility] #: [id number] DARRYL
[2018-03-20] MEDS: methylPREDNISolone SOD 40 MG* 1 ML VIAL IV SCH (18:22)
[2018-03-20] MEDS: Pantoprazole IV* 40 MG IV SCH (18:22)
[2018-03-20] MEDS: Heparin VIAL(*) 5000 UNITS/ML VIAL (FIVE THOUSAND) SUBCUT SCH ×2 (18:22→20:36)
--- NOTE | 2018-03-20 18:49 | RAD ---
Indication: Check NG tube placement. COPD. Former tobacco use. Hemodialysis. Comparison: CT of the same date. Technique: Upright AP 1746 hours Report: Tip of the NG tube except level of the gastric body. RIGHT greater than LEFT basilar pulmonary consolidation. Patchy rarefaction of the interstitial markings. Grossly clear pleural spaces. Negative for cardiomegaly. Enlarged central pulmonary arteries with peripheral attenuation favoring pulmonary arterial hypertension. Calcified RIGHT hilar lymph nodes. IMPRESSION: #. Acceptable position of the NG tube. #. Stigmata of obstructive lung disease and probable pulmonary arterial hypertension. #. RIGHT greater than LEFT basilar airspace consolidation suspicious for bronchopneumonia.
[2018-03-20] MEDS: Mometasone/Formoter 200/5 MDI INH SCH (19:45)
[2018-03-20] MEDS: Cefepime 1 GM in Dextrose(*) 1 GM/50 ML BAG IV SCH (20:36)
[2018-03-20] MEDS ORDERED: Magnesium Oxide TAB* 400 MG PO SCH (21:00)
[2018-03-20] MEDS ORDERED: CMC:Pantoprazole TAB (NF) 40 MG TAB PO SCH (21:00)
[2018-03-20] MEDS: metroNIDAZOLE IV 500 MG/100ML* 500 MG/100 ML BAG IVPB SCH (23:46)
[2018-03-21] MEDS ORDERED: Vancomycin Random Level* NOTE FOLLOW UP ONE (06:00)
[2018-03-21] MEDS: methylPREDNISolone SOD 40 MG* 1 ML VIAL IV SCH ×2 (06:09→17:24)
[2018-03-21] MEDS: metroNIDAZOLE IV 500 MG/100ML* 500 MG/100 ML BAG IVPB SCH ×2 (06:11→15:43)
[2018-03-21] MEDS: Heparin VIAL(*) 5000 UNITS/ML VIAL (FIVE THOUSAND) SUBCUT SCH ×2 (06:12→15:43)
[2018-03-21 07:08] LABS: INR 0.94 (0.77-1.02)
[2018-03-21 07:09] LABS: ABS Basophils 0 10^3/ul (0-0.2); ABS Eosinophils 0 10^3/ul (0-0.6); ABS Lymphocytes 0.6 10^3/ul (1.0-4.8); ABS Monocytes 0.3 10^3/ul (0-0.8); ABS Neutrophils 7.4 10^3/ul (1.5-7.7); ABS Nucleated RBC 0 10^3/ul; Eosinophil % 0 % (0-6); Hematocrit 29 % (42-52); Hemoglobin 9.8 g/dl (14.0-18.0); Lymphocyte % 6.7 % (25-47); Mean Corpuscular HGB Conc 34 g/dl (31-36); Mean Corpuscular Hemoglobin 33 pg (27-31); Mean Corpuscular Volume 97 fL (80-94); Mean Platelet Volume 6.3 um3 (7.4-10.4); Nucleated Red Blood Cells % 0; Platelet Count 209 10^3/ul (150-450); Red Blood Count 2.96 10^6/ul (4.00-5.40); Red Cell Distribution Width 15 % (10.5-15); White Blood Count 8.3 10^3/ul (3.5-10.8)
[2018-03-21 07:21] LABS: EGFR Non-African American 15.1 (>60)
[2018-03-21] MEDS: Mometasone/Formoter 200/5 MDI INH SCH ×2 (07:42→20:52)
[2018-03-21] MEDS: Calcitriol CAP* 0.25 MCG PO SCH (08:23)
[2018-03-21] MEDS: Clopidogrel TAB* 75 MG PO SCH (08:23)
[2018-03-21] MEDS: Aspirin EC TAB* 81 MG TAB.EC PO SCH (08:23)
[2018-03-21] MEDS ORDERED: Megestrol SUSP* 400 MG/10 ML UDC PO SCH (09:00)
[2018-03-21] MEDS ORDERED: Famotidine TAB* 20 MG PO SCH (09:00)
[2018-03-21] MEDS ORDERED: Atorvastatin* 10 MG TAB PO SCH (09:00)
[2018-03-21] MEDS ORDERED: Lactobacillus Acidophilus* 1 TAB PO SCH (09:00)
[2018-03-21] MEDS ORDERED: Sodium Bicarbonate (ANTACID)* 650 MG TAB PO SCH (09:00)
[2018-03-21] MEDS ORDERED: NEBIVOLOL 2.5 MG PO SCH (09:00)
[2018-03-21] MEDS ORDERED: Multivitamins/Minerals TAB PO SCH (09:00)
[2018-03-21] MEDS ORDERED: Allopurinol TAB* 100 MG PO SCH (09:00)
--- NOTE | 2018-03-21 14:23 | PN ---
Subjective Date of Service: 03/21/18 Interval History: NG tube continues to put out brown thin material. He thinks he feels better today. No abdominal pain. Last bowel movement was two days ago. No nausea. Objective Active Medications: Acetaminophen (Tylenol Tab*) 650 mg PO Q4H PRN PRN Reason: FEVER/PAIN Albuterol (Ventolin 2.5 Mg/3 Ml Neb.Terri*) 2.5 mg INH Q2H PRN PRN Reason: SOB/WHEEZING Aspirin (Aspirin Ec Tab*) 81 mg PO DAILY [facility] Last Admin: 03/21/18 08:23 Dose: Not Given Calcitriol (Rocaltrol Cap*) 0.25 mcg PO DAILY [facility] Last Admin: 03/21/18 08:23 Dose: Not Given Clopidogrel Bisulfate (Plavix Tab*) 75 mg PO DAILY [facility] Last Admin: 03/21/18 08:23 Dose: Not Given Heparin Sodium (Porcine) (Heparin Vial(*)) 5,000 units SUBCUT Q8HR [facility] Last Admin: 03/21/18 06:12 Dose: 5,000 units Metronidazole/Sodium Chloride (Flagyl 500 Mg Ivpb*) 500 mg in 100 mls @ 100 mls /hr IVPB Q8H [facility] Last Admin: 03/21/18 06:11 Dose: 100 mls/hr Cefepime HCl (Maxipime 1 Gm In Dextrose Duplex (*)) 1 gm in 50 mls @ 100 mls/ hr IV Q48HR@1800 [facility] Last Admin: 03/20/18 20:36 Dose: 100 mls/hr Methylprednisolone Sodium Succinate (Solu-Medrol 40 Mg) 40 mg IV Q12H [facility] Last Admin: 03/21/18 06:09 Dose: 40 mg Metoprolol Tartrate (Lopressor Iv*) 2.5 mg IV Q6H PRN PRN Reason: BLOOD PRESSURE Mometasone Furoate/Formoterol Fumar (Dulera 200/5 Mdi*) 2 puff INH BID [facility] Last Admin: 03/21/18 07:42 Dose: 2 puff Mupirocin (Bactroban 2 % Oint*) 1 applic TOPICAL DAILY [facility] Pantoprazole Sodium (Protonix Iv*) 40 mg IV Q24H [facility] Last Admin: 03/20/18 18:22 Dose: 40 mg Pharmacy Consult (Vancomycin Per Pharmacy*) 1 note FOLLOW UP .VANC PER PHARMACY [facility] Vital Signs - 8 hr 03/21/18 03/21/18 03/21/18 07:33 11:09 11:55 Temperature 97.5 F 99.2 F Pulse Rate 63 81 60 Respiratory 16 16 Rate Blood Pressure 105/30 115/37 (mmHg) O2 Sat by Pulse 93 98 Oximetry Oxygen Devices in Use Now: None Appearance: sleeping, alerts to voice, resting in bed with at the bedside Eyes: No Scleral Icterus Ears/Nose/Mouth/Throat: NL Teeth, Lips, Gums Neck: NL Appearance and Movements; NL JVP Respiratory: Symmetrical Chest Expansion and Respiratory Effort, Clear to Auscultation Cardiovascular: NL Sounds; No Murmurs; No JVD, RRR Abdominal: - - bowel sounds present in all quadrants. PD catheter in LLQ with scant surrounding erythema. Nontender, nondistended. No guarding. Lymphatic: No Cervical Adenopathy Extremities: No Edema Skin: No Rash or Ulcers Neurological: Alert and Oriented x 3 Result Diagrams: 03/21/18 06:53 03/21/18 06:53 Microbiology and Other Data: Microbiology 03/20/18 14:30 Sterile Body Fluid Culture - Preliminary Peritoneal Fluid Escherichia Coli Sterile Body Fluid Culture - Preliminary Escherichia Coli 03/20/18 14:30 Gram Stain - Final Body Fluid Assess/Plan/Problems-Billing Assessment: 88 yo man with esrd on PD admitted after he woke up with feculent material in his mouth. Found to have a partial SBO and a suspected aspiration pneumonia. - Patient Problems (1) Partial small bowel obstruction Current Visit: Yes Status: Acute Code(s): K56.600 - PARTIAL INTESTINAL OBSTRUCTION, UNSPECIFIED TO CAUSE SNOMED Code(s): 829443318 Comment: NG tube in place and on suction, thin brown material in tube unclear if the underlying etiology was mechanical or functional -- differential remains broad keep npo surgery consulted (2) Peritonitis Current Visit: Yes Status: Acute Code(s): K65.9 - PERITONITIS, UNSPECIFIED SNOMED Code(s): 29464069 Comment: secondary peritoneal fluid growing e. coli, awaiting sensitivities neprhology consulted continue cefepime (3) Aspiration pneumonia Current Visit: Yes Status: Acute Code(s): J69.0 - PNEUMONITIS DUE TO INHALATION OF FOOD AND VOMIT SNOMED Code(s): 351762827 Comment: continue metronidazole and cefepime (4) ESRD on peritoneal dialysis Current Visit: Yes Status: Acute Code(s): N18.6 - END STAGE RENAL DISEASE; Z99.2 - DEPENDENCE ON RENAL DIALYSIS SNOMED Code(s): 62695295
[2018-03-21] MEDS: Mupirocin 2% OINT* TUBE TOPICAL SCH (15:43)
--- NOTE | 2018-03-21 16:42 | CONS ---
CC: Dr. Mcintsoh; Dr. Sheriff; Dr. Ward * SURGICAL CONSULTATION NOTE: DATE OF CONSULT: ATTENDING PHYSICIAN: Dr. David Mcintosh. LOCATION: This patient was seen on 03/21/18 at [facility] in room 406. CHIEF COMPLAINT: Abdominal pain and vomiting. HISTORY OF PRESENT ILLNESS: The patient is an 88-year-old male with an extensive past medical history who presented to the emergency room on 03/20/18 after vomiting once apparently in his sleep; the patient stated that he awoke with vomiting evident in his bed. He apparently had been feeling fairly well prior to this, but his states that he has had chronic constipation and states that his appetite has been very erratic. He states that he has had abdominal discomfort in the lower abdomen for the past 2 months. He denies any fever or chills at home. There was no blood or coffee-ground emesis in the vomitus. He did have a bowel movement on 03/20/18. He denies any diarrhea. In the emergency room, a CAT scan of the abdomen and pelvis revealed a partial small bowel obstruction in the mid abdomen with a transition zone deep in the pelvis. He was admitted on hospitalist service with concerns for a possible aspiration pneumonitis and Surgery was asked to consult in regard to the partial small bowel obstruction. Nasogastric tube was placed overnight and put out 800 mL of brown fluid. On exam today, he denies any abdominal pain or nausea. He is compliant with the nasogastric decompression. He is not passing any flatus. PAST MEDICAL HISTORY: 1. Significant for end-stage renal disease, on peritoneal dialysis. 2. Bladder cancer. 3. Stroke. 4. Carotid artery disease. 5. GERD. 6. Hypertension. 7. Coronary artery disease. 8. COPD. 9. Renal artery stenosis. 10. Arthritis. 11. Gout. PAST SURGICAL HISTORY: PD catheter placement by Dr. Abad in 2017; AV fistula right arm in 2016; left nephrectomy in 1949; left carotid endarterectomy in 2010 ; bladder tumor resection in 1979; TURP in 1982; right carotid stenting in 2005. MEDICATIONS: Include: 1. Plavix. 2. Prednisone. 3. Ranitidine. 4. Allopurinol. 5. Amiloride. 6. Low-dose aspirin. 7. Calcitriol. 8. Dicyclomine. 9. Diphenhydramine at bedtime. 10. Magnesium oxide. 11. Megestrol. 12. Bystolic. 13. Prilosec. 14. Crestor. 15. Zantac. 16. Sodium bicarbonate. ALLERGIES: No known drug allergies. FAMILY HISTORY: Mother had bladder cancer. Father took his own life. SOCIAL HISTORY: He is and his was present in the room today. He is a former smoker, quit in 1979. He denies the use of alcohol. REVIEW OF SYSTEMS: Constitutional: No documented fever or chills, no significant weight change. Endocrine: No diabetes or thyroid disease. Respiratory: Ex- smoker. History of COPD. Cardiovascular: Positive for coronary artery disease with cardiac catheterization at [facility] last week. He is treated for hypertension. Gastrointestinal: As described in history of present illness. He also has a history of diverticulitis with GI bleeding; esophageal stretching on 3 separate occasions and GERD. : Currently on peritoneal dialysis; he does have a hemodialysis AV fistula and is status post bladder cancer resection and left nephrectomy as well as TURP. Neurologic: No seizures. No loss of consciousness. Integumentary: No skin ulcerations. General: No previous anesthesia complications. PHYSICAL EXAM: General Survey: The patient is an 88-year-old male, chronically ill appearing, but does not appear to be in any acute distress. Vital Signs: Temperature 99.2 tympanic, blood pressure 115/37, heart rate 81, respiratory rate 16. HEENT: Benign. Neck: Supple. Lungs: Scattered wheezing bilaterally. Crackles in the right base, equal diaphragmatic expansion. Heart: Regular rate and rhythm. No murmurs or rubs. Abdomen: Hypoactive bowel sounds. Soft and nondistended, nontender throughout. PD cath in place. Mild erythema around the exit site. No drainage. Extremities: Pulses 2+ throughout, moving all 4 extremities, slightly weaker on the left from previous stroke. Neurologic : Alert and oriented x3. Speech is clear. He is hard of hearing. Skin: Grossly intact. DIAGNOSTIC STUDIES/LAB DATA: Today reveals a white blood cell count of 8.3, hemoglobin 9.8, hematocrit 29. IMPRESSION: Partial small bowel obstruction. There was no followup x-ray ordered for today. He denies any abdominal pain today. The nasogastric tube has large output. His abdominal exam is benign. PLAN: Reviewed with Dr. Mcintosh. Continue nasogastric decompression and obtain an abdominal x-ray tomorrow morning, which Dr. Abad, who is on-call tomorrow, will review. The dialysis nurse stated that the patient would not have dialysis today. The patient and his are in agreement with the plan. At this time, there is no indication for surgery. We will continue to follow. TIME SPENT: Sixty minutes with greater than 50% in [id number] history taking and coordination of care. NELA STRICKLAND, [place] [id number]/[facility] #: [id number] DARRYL
[2018-03-21] MEDS: Pantoprazole IV* 40 MG IV SCH (17:24)
[2018-03-22] MEDS: metroNIDAZOLE IV 500 MG/100ML* 500 MG/100 ML BAG IVPB SCH ×4 (01:36→22:39)
[2018-03-22] MEDS: Heparin VIAL(*) 5000 UNITS/ML VIAL (FIVE THOUSAND) SUBCUT SCH ×4 (02:51→22:35)
[2018-03-22] MEDS: methylPREDNISolone SOD 40 MG* 1 ML VIAL IV SCH ×2 (05:30→18:01)
[2018-03-22 06:35] LABS: ABS Basophils 0 10^3/ul (0-0.2); ABS Eosinophils 0 10^3/ul (0-0.6); ABS Lymphocytes 0.7 10^3/ul (1.0-4.8); ABS Monocytes 0.5 10^3/ul (0-0.8); ABS Nucleated RBC 0 10^3/ul; Eosinophil % 0 % (0-6); Hematocrit 28 % (42-52); Hemoglobin 9.7 g/dl (14.0-18.0); Lymphocyte % 9.6 % (25-47); Mean Corpuscular HGB Conc 35 g/dl (31-36); Mean Corpuscular Hemoglobin 34 pg (27-31); Mean Corpuscular Volume 97 fL (80-94); Mean Platelet Volume 6.2 um3 (7.4-10.4); Nucleated Red Blood Cells % 0; Platelet Count 205 10^3/ul (150-450); Red Blood Count 2.89 10^6/ul (4.00-5.40); Red Cell Distribution Width 15 % (10.5-15); White Blood Count 7.1 10^3/ul (3.5-10.8)
[2018-03-22 06:54] LABS: EGFR Non-African American 12.8 (>60)
[2018-03-22] MEDS: Mometasone/Formoter 200/5 MDI INH SCH ×2 (07:18→20:59)
[2018-03-22] MEDS: Calcitriol CAP* 0.25 MCG PO SCH (08:15)
[2018-03-22] MEDS: Clopidogrel TAB* 75 MG PO SCH (08:15)
[2018-03-22] MEDS: Aspirin EC TAB* 81 MG TAB.EC PO SCH (08:15)
[2018-03-22] MEDS: Mupirocin 2% OINT* TUBE TOPICAL SCH (08:27)
--- NOTE | 2018-03-22 09:22 | PN ---
Progress Note - Progress Note Date of Service: 03/22/18 SOAP: Subjective: pt seen and examined. No abdo pain. some flatus, no nausea, pos. appetite Objective: af vss NGT no output past 4 hrs a and ox3, nad abdo:L soft/ ND/NT pos BS PD catheter in place, no redness RUE AVF intact E coli from PD Assessment: resolved obstruction ( likely ileus 2ary to peritonitis) B.P. 2ary to PD cath Plan: NGT removed, advance diet abx and Tx per hosp, nephrology recall if PD catheter needs removal/replacement
--- NOTE | 2018-03-22 09:36 | RAD ---
Indication: Nausea and vomiting. NG tube in place. On peritoneal dialysis. Comparison: March 20, 2018 CT. Technique: Supine and upright views of the abdomen. Report: Tip of NG tube at level of gastric cardia. Mildly dilated LEFT abdomen small bowel loops without significant change. No significant retained stool in the colon. Pelvic peritoneal dialysis catheter. Vascular calcifications. Negative for mass effect. RIGHT greater than LEFT basilar pulmonary consolidation. IMPRESSION: #. The nasogastric tube should be advanced. #. No significant change in findings of partial small bowel obstruction versus ileus. #. RIGHT greater than LEFT basilar pulmonary consolidation concerning for pneumonia.
--- NOTE | 2018-03-22 11:07 | PN ---
Subjective Date of Service: 03/22/18 Interval History: NG tube was removed this morning and he feels good, no nausea. Looking forward to trying some liquid. No bowel movement, no abdominal pain. Objective Active Medications: Acetaminophen (Tylenol Tab*) 650 mg PO Q4H PRN PRN Reason: FEVER/PAIN Albuterol (Ventolin 2.5 Mg/3 Ml Neb.Terri*) 2.5 mg INH Q2H PRN PRN Reason: SOB/WHEEZING Aspirin (Aspirin Ec Tab*) 81 mg PO DAILY [facility] Last Admin: 03/22/18 08:15 Dose: Not Given Calcitriol (Rocaltrol Cap*) 0.25 mcg PO DAILY [facility] Last Admin: 03/22/18 08:15 Dose: Not Given Clopidogrel Bisulfate (Plavix Tab*) 75 mg PO DAILY [facility] Last Admin: 03/22/18 08:15 Dose: Not Given Heparin Sodium (Porcine) (Heparin Vial(*)) 5,000 units SUBCUT Q8HR [facility] Last Admin: 03/22/18 05:29 Dose: 5,000 units Metronidazole/Sodium Chloride (Flagyl 500 Mg Ivpb*) 500 mg in 100 mls @ 100 mls /hr IVPB Q8H [facility] Last Admin: 03/22/18 08:27 Dose: 100 mls/hr Cefepime HCl (Maxipime 1 Gm In Dextrose Duplex (*)) 1 gm in 50 mls @ 100 mls/ hr IV Q48HR@1800 [facility] Last Admin: 03/20/18 20:36 Dose: 100 mls/hr Methylprednisolone Sodium Succinate (Solu-Medrol 40 Mg) 40 mg IV Q12H [facility] Last Admin: 03/22/18 05:30 Dose: 40 mg Metoprolol Tartrate (Lopressor Iv*) 2.5 mg IV Q6H PRN PRN Reason: BLOOD PRESSURE Mometasone Furoate/Formoterol Fumar (Dulera 200/5 Mdi*) 2 puff INH BID [facility] Last Admin: 03/22/18 07:18 Dose: 2 puff Mupirocin (Bactroban 2 % Oint*) 1 applic TOPICAL DAILY [facility] Last Admin: 03/22/18 08:27 Dose: 1 applic Pantoprazole Sodium (Protonix Iv*) 40 mg IV Q24H [facility] Last Admin: 03/21/18 17:24 Dose: 40 mg Pharmacy Consult (Vancomycin Per Pharmacy*) 1 note FOLLOW UP .VANC PER PHARMACY [facility] Vital Signs - 8 hr 03/22/18 03/22/18 03/22/18 03:42 06:36 09:35 Temperature 98.3 F 98.0 F Pulse Rate 61 61 Respiratory 18 16 16 Rate Blood Pressure 98/29 118/30 (mmHg) O2 Sat by Pulse 95 96 Oximetry Oxygen Devices in Use Now: None Appearance: sleeping, alerts easily to voice Eyes: No Scleral Icterus Ears/Nose/Mouth/Throat: NL Teeth, Lips, Gums Neck: NL Appearance and Movements; NL JVP Cardiovascular: NL Sounds; No Murmurs; No JVD, RRR Abdominal: NL Sounds; No Tenderness; No Distention, - - bowel sounds present in all quadrants. PD catheter site less erythematous than yesterday. no drainage. abdomen soft. no guarding or rebound. Lymphatic: No Cervical Adenopathy Extremities: No Edema, - - RUE fistula Skin: No Rash or Ulcers Neurological: Alert and Oriented x 3 Result Diagrams: 03/22/18 06:20 03/22/18 06:20 Microbiology and Other Data: Microbiology 03/20/18 14:30 Sterile Body Fluid Culture - Preliminary Peritoneal Fluid Escherichia Coli Sterile Body Fluid Culture - Preliminary Escherichia Coli 03/20/18 14:30 Gram Stain - Final Body Fluid Assess/Plan/Problems-Billing Assessment: 88 yo man with esrd on PD admitted after he woke up with feculent material in his mouth. Found to have a partial SBO and a suspected aspiration pneumonia. - Patient Problems (1) Partial small bowel obstruction Current Visit: Yes Status: Acute Code(s): K56.600 - PARTIAL INTESTINAL OBSTRUCTION, UNSPECIFIED TO CAUSE SNOMED Code(s): 452190396 Comment: No evidence of mechanical obstruction; ? ileus from peritonitis vs. functional obstruction NG tube removed this morning, feels okay now. attempt clear liquids now. KUB this morning was unchanged. Dr. Abad following. (2) Peritonitis Current Visit: Yes Status: Acute Code(s): K65.9 - PERITONITIS, UNSPECIFIED SNOMED Code(s): 66393429 Comment: secondary peritoneal fluid growing e. coli, pansensitive neprhology consulted continue cefepime (3) Aspiration pneumonia Current Visit: Yes Status: Acute Code(s): J69.0 - PNEUMONITIS DUE TO INHALATION OF FOOD AND VOMIT SNOMED Code(s): 647999834 Comment: continue metronidazole and cefepime (4) ESRD on peritoneal dialysis Current Visit: Yes Status: Acute Code(s): N18.6 - END STAGE RENAL DISEASE; Z99.2 - DEPENDENCE ON RENAL DIALYSIS SNOMED Code(s): 42290965 Comment: case discussed with Dr. Ward; plan to dialyze today volume and electrolytes okay
[2018-03-22] MEDS: Pantoprazole IV* 40 MG IV SCH (16:31)
[2018-03-22] MEDS ORDERED: Heparin DIALYSIS ONLY(*) 1,000 UNITS/ML VIAL DIALYSIS ONE (18:00)
[2018-03-22] MEDS: Cefepime 1 GM in Dextrose(*) 1 GM/50 ML BAG IV SCH (18:01)
[2018-03-22] MEDS ORDERED: diPHENhydraMINE PO* 25 MG PO PRN (18:07)
[2018-03-23] MEDS: methylPREDNISolone SOD 40 MG* 1 ML VIAL IV SCH (05:40)
[2018-03-23] MEDS: Heparin VIAL(*) 5000 UNITS/ML VIAL (FIVE THOUSAND) SUBCUT SCH (05:40)
[2018-03-23] MEDS: metroNIDAZOLE IV 500 MG/100ML* 500 MG/100 ML BAG IVPB SCH (06:46)
[2018-03-23] MEDS: Mometasone/Formoter 200/5 MDI INH SCH ×2 (06:57→07:35)
[2018-03-23 07:27] LABS: ABS Basophils 0 10^3/ul (0-0.2); ABS Eosinophils 0 10^3/ul (0-0.6); ABS Lymphocytes 0.4 10^3/ul (1.0-4.8); ABS Monocytes 0.2 10^3/ul (0-0.8); ABS Neutrophils 4.5 10^3/ul (1.5-7.7); ABS Nucleated RBC 0 10^3/ul; Eosinophil % 0 % (0-6); Hematocrit 26 % (42-52); Hemoglobin 8.8 g/dl (14.0-18.0); Lymphocyte % 8.4 % (25-47); Mean Corpuscular HGB Conc 34 g/dl (31-36); Mean Corpuscular Hemoglobin 33 pg (27-31); Mean Corpuscular Volume 97 fL (80-94); Mean Platelet Volume 6.1 um3 (7.4-10.4); Nucleated Red Blood Cells % 0; Platelet Count 177 10^3/ul (150-450); Red Blood Count 2.68 10^6/ul (4.00-5.40); Red Cell Distribution Width 15 % (10.5-15); White Blood Count 5.1 10^3/ul (3.5-10.8)
--- NOTE | 2018-03-23 09:14 | PN ---
Subjective Date of Service: 03/23/18 Interval History: Mr. Farah denies any complaint and is eager for discharge to home. He is tolerating oral intake well and had another bowel movement today. He denies chest pain, SOB, nausea, or abdominal pain. Objective Active Medications: Acetaminophen (Tylenol Tab*) 650 mg PO Q4H PRN Albuterol (Ventolin 2.5 Mg/3 Ml Neb.Terri*) 2.5 mg INH Q2H PRN Aspirin (Aspirin Ec Tab*) 81 mg PO DAILY [facility] Calcitriol (Rocaltrol Cap*) 0.25 mcg PO DAILY [facility] Clopidogrel Bisulfate (Plavix Tab*) 75 mg PO DAILY [facility] Diphenhydramine HCl (Benadryl Po*) 12.5 mg PO BEDTIME PRN Heparin Sodium (Porcine) (Heparin Vial(*)) 5,000 units SUBCUT Q8HR [facility] Metronidazole/Sodium Chloride (Flagyl 500 Mg Ivpb*) 500 mg in 100 mls @ 100 mls /hr IVPB Q8H [facility] Cefepime HCl (Maxipime 1 Gm In Dextrose Duplex (*)) 1 gm in 50 mls @ 100 mls/ hr IV Q48HR@1800 [facility] Methylprednisolone Sodium Succinate (Solu-Medrol 40 Mg) 40 mg IV Q12H [facility] Metoprolol Tartrate (Lopressor Iv*) 2.5 mg IV Q6H PRN Mometasone Furoate/Formoterol Fumar (Dulera 200/5 Mdi*) 2 puff INH BID [facility] Mupirocin (Bactroban 2 % Oint*) 1 applic TOPICAL DAILY [facility] Pantoprazole Sodium (Protonix Iv*) 40 mg IV Q24H [facility] Vital Signs: Temp Pulse Resp BP Pulse Ox 98.0 F 113 16 145/58 96 03/23/18 07:44 03/23/18 07:44 03/23/18 07:44 03/23/18 07:44 03/23/18 07:44 Oxygen Devices in Use Now: None Appearance: Male sitting on edge of bed in NAD Eyes: No Scleral Icterus Ears/Nose/Mouth/Throat: Mucous Membranes Moist Neck: Trachea Midline Respiratory: Symmetrical Chest Expansion and Respiratory Effort, - - Rhonchi in bilateral bases Cardiovascular: NL Sounds; No Murmurs; No JVD, No Edema Abdominal: NL Sounds; No Tenderness; No Distention Lymphatic: No Cervical Adenopathy Extremities: No Edema Skin: No Rash or Ulcers Neurological: Alert and Oriented x 3, NL Muscle Strength and Tone Nutrition: Taking PO's Result Diagrams: 03/23/18 07:10 03/23/18 07:10 Assess/Plan/Problems-Billing Assessment: Mr. Farah is an 88 yo man with ESRD on PD admitted with a partial SBO secondary to e coli peritonitis and suspected aspiration pneumonia. - Patient Problems (1) Partial small bowel obstruction Comment: - Resolved, NG tube out, BM x 2. Tolerating soft diet. - Appreciate consult from Dr. Abad. No evidence of mechanical obstruction; ? ileus from peritonitis vs. functional obstruction (2) Aspiration pneumonia Comment: - CT with reticulonodular infiltrates in lung bases. - Concern for aspiration based on presentation with emesis related to SBO while sleeping. - Switch to cefdinir for further 10 day course. Titrate steroids. (3) Peritonitis Comment: - Peritoneal fluid growing e. coli, pansensitive - Nephrology consulted, case discussed with previous MD. - Switch to cefdinir for further 10 day course. (4) ESRD on peritoneal dialysis Comment: - Case discussed with Dr. Ward by previous MD. - Dialyzed overnight. (5) CAD (coronary artery disease) Comment: - Continue aspirin and plavix. (6) COPD (chronic obstructive pulmonary disease) Comment: - No evidence of exacerbation. - Continue dulera and albuterol prn. (7) Hypertension Comment: - SBP 110-140s. - Resume amiloride and nebivolol. (8) DVT prophylaxis Comment: - Heparin SQ. (9) Full code status Comment: Status and Disposition: Inpatient. Discharge to home.
[2018-03-23] MEDS: Calcitriol CAP* 0.25 MCG PO SCH (09:19)
[2018-03-23] MEDS: Clopidogrel TAB* 75 MG PO SCH (09:19)
[2018-03-23] MEDS: Aspirin EC TAB* 81 MG TAB.EC PO SCH (09:20)
[2018-03-23] MEDS ORDERED: HYDROcodone/ACETAM 10-325 MG(NF) 1 TAB PO PRN (09:23)
[2018-03-23] MEDS ORDERED: Heparin DIALYSIS ONLY(*) 1,000 UNITS/ML VIAL DIALYSIS ONE (11:00)
[2018-03-23] MEDS: Mupirocin 2% OINT* TUBE TOPICAL SCH (11:15)
[2018-03-23 12:37] VITALS: BP 139/47
--- NOTE | 2018-03-24 04:07 | DS ---
CC: Dr. Sheriff; Dr. Ward * [facility] MEDICINE DISCHARGE SUMMARY: DATE OF ADMISSION: 03/20/18 DATE OF DISCHARGE: 03/23/18 PRIMARY CARE PHYSICIAN: Dr. Sheriff. PHOTOGRAPH PRINTER: Matthew Ward MD ATTENDING PHYSICIAN: Danielle Pisano MD * (dictation provided by Erica Acevedo NP). PRIMARY DIAGNOSES: 1. Peritonitis related to peritoneal dialysis with E. coli. 2. Partial small-bowel obstruction. 3. Aspiration pneumonia. SECONDARY DIAGNOSES: 1. End-stage renal disease, on peritoneal dialysis. 2. Bladder cancer. 3. Cerebrovascular accident. 4. Carotid artery disease. 5. Arthritis. 6. Gastroesophageal reflux disease. 7. Gout. 8. Hypertension. 9. Irritable bowel syndrome. 10. Renal artery stenosis. 11. Coronary artery disease. 12. Chronic obstructive pulmonary disease. PAST SURGICAL HISTORY: 1. The patient has bladder resection. 2. Right carotid artery stenting. 3. Left carotid endarterectomy. 4. Cardiac catheterization done 2 months ago at [facility] with angioplasty. 5. PD catheter placement. 6. Left kidney nephrectomy. 7. AV fistula to the right arm. MEDICATIONS AT THE TIME OF DISCHARGE: 1. Cefdinir 300 mg p.o. daily x10 days. 2. Prednisone 10 mg to taper and then resume 5 mg p.o. daily (the patient states he has not been taking this medication and has been asked to follow up with his primary care physician in this regard). 3. Nitroglycerin 0.4 mg sublingually every 5 minutes as needed for chest pain. 4. Bactroban 1 application topically to PD site. 5. Breo 1 puff inhaled daily. 6. Sodium bicarbonate 1 tablet daily. 7. Zantac 1 tablet p.o. daily. 8. Crestor 5 mg p.o. daily. 9. Prilosec 20 mg p.o. b.i.d. 10. Bystolic 10 mg p.o. daily. 11. Probiotic 1 capsule daily. 12. Multivitamin 1 tab daily. 13. Megestrol acetate 625 mg p.o. daily. 14. Magnesium oxide 400 mg p.o. b.i.d. 15. [place] 1 tablet every 6 hours as needed. 16. Fish oil 1000 mg p.o. b.i.d. 17. Diphenhydramine 25 mg p.o. at bedtime. 18. Dicyclomine 20 mg p.o. 4 times daily. 19. Plavix 1 tablet daily. 20. Calcitriol 1 tablet p.o. daily. 21. Aspirin 81 mg p.o. daily. 22. Amiloride 5 mg p.o. daily. 23. Allopurinol 100 mg p.o. daily. HOSPITAL COURSE: Mr. Farah is an 88-year-old male with past medical history as outlined above who presented to the hospital on 03/20/18 with concern for nausea and vomiting. Please see dictated H and P from Pan Irwin NP for complete details. 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 He had been feeling well prior to this, but afterwards began to develop some lower abdominal pain. In the emergency room, they showed concern for possible pneumonia with right lower lobe infiltrate with suspicion for possible aspiration pneumonitis. The patient's abdominal discomfort raised concern for possible peritonitis. The patient was admitted to the hospital. Mr. Farah's workup further contained of chest, abdomen, pelvis CT which showed the following "partial small bowel obstruction suggest followup radiographs, reticulonodular infiltrates in lung bases suggest followup, probable gallstones and contracted gallbladder, evidence of old granulomatous disease, small amount of free fluid related to peritoneal dialysis." For his bowel obstruction, the patient had a NG tube placed. Case was discussed with Dr. Ward and appropriate sampling was obtained of the peritoneal dialysis fluid, which ultimately grew E. coli which was pansensitive. The patient was also seen in consultation by surgical services who agreed with medical management and no indication for surgery. In terms of antibiotics, the patient was treated with Flagyl and cefepime. Yesterday, the patient's NG tube was removed and he had a bowel movement in the evening. Today, he tolerated soft diet well with no nausea, vomiting, or abdominal pain. He has had another bowel movement today. He is ambulating in his room independently. He is not requiring oxygen. Mr. Farah is medically stable for discharge to home with plans to follow up closely with Dr. Ward and Dr. Sheriff regarding this admission to the hospital. DISPOSITION: Home. DIET: Renal heart healthy. ACTIVITY: As tolerated per routine. FOLLOWUP PLANS: 1. Please follow up with Dr. Sheriff in the next week. 2. Please follow up with Dr. Ward in the next week. TIME SPENT: Approximately 60 minutes were spent on the discharge of this patient, more than half time spent with the patient at the bedside reviewing the events leading up to and during this hospitalization, performing the physical examination, and reviewing my plan of care. ERICA ACEVEDO NP [id number]/[facility] #: [id number] [facility] CENTERJayden
[2018-03-24] MEDS ORDERED: CMC:Nebivolol TAB (NF) 2.5 MG TAB PO SCH (09:00)
[2018-03-24] MEDS ORDERED: predniSONE TAB* 20 MG PO SCH (09:00)
[2018-03-24] MEDS ORDERED: aMILoride TAB* 5 MG PO SCH (09:00)
== END 2018-03-23 14:00 | disposition home or self-care (01) | DRG 371 ==
LOC: ED 10:23 → MED 13:36 → OBSVTOIN 03-21 09:00
PROVIDERS: ADMIT Internal Medicine; ATTEND Internal Medicine
PROC: 3E1M39Z Irrigation of Peritoneal Cavity using Dialysate, Percutaneous Approach (ICD-10-PCS; principal; 2018-03-22)
DX: K65.8 Other peritonitis (principal); J69.0 Pneumonitis due to inhalation of food and vomit; N18.6 End stage renal disease; K56.600 Partial intestinal obstruction, unspecified as to cause; I13.11 Hypertensive heart and chronic kidney disease without heart failure, with stage 5 chronic kidney disease, or end stage renal disease; I69.354 Hemiplegia and hemiparesis following cerebral infarction affecting left non-dominant side; J44.9 Chronic obstructive pulmonary disease, unspecified; E86.0 Dehydration; B96.20 Unspecified Escherichia coli [E. coli] as the cause of diseases classified elsewhere; I65.29 Occlusion and stenosis of unspecified carotid artery; I70.1 Atherosclerosis of renal artery; Z99.2 Dependence on renal dialysis; K21.9 Gastro-esophageal reflux disease without esophagitis; M19.90 Unspecified osteoarthritis, unspecified site; M10.9 Gout, unspecified; K58.9 Irritable bowel syndrome, unspecified; E87.6 Hypokalemia; Z85.51 Personal history of malignant neoplasm of bladder; Z87.891 Personal history of nicotine dependence; Z79.02 Long term (current) use of antithrombotics/antiplatelets; Z79.82 Long term (current) use of aspirin; Z79.52 Long term (current) use of systemic steroids; Z79.899 Other long term (current) drug therapy; Z80.52 Family history of malignant neoplasm of bladder
CPT/HCPCS: 36415; 71045; 71046; 71250; 74019; 74176; 80048; 80053; 80202; 83605; 83735; 83880; 84100; 84443; 84484; 85025; 85610; 87040; 87077; 87186; 87205; 89051; 93005; 94640; 99284; A9270-GY; G0378; J0692; J1644; J2920; J3370; J3490

== ENCOUNTER 2018-04-02 07:06 | Inpatient (IN) | payer MEDICARE, BC ==
[2018-04-02] MEDS ORDERED: NS 0.9% 250 ML* 250 ML IV ONE (07:22)
--- NOTE | 2018-04-02 07:31 | ED ---
Abdominal Pain/Male - HPI Summary HPI Summary: This is daniel Wayne documenting for attending Dr. Yanely Rojas This patient is an 88 year old M presenting to [facility] with a chief complaint of diarrhea since 3 or 4 days ago. He endorses 2 or 3 episodes today. Pt endorses just finishing an abx regimen for peritonitis, weakness, SOB upon exertion. He denies CP, abd pain, anal pain, fever. PMHx dialysis, ESRF, SBO, HLD, HTN, and peritonitis. Pt undergoes dialysis during nights, did last night. - History of Current Complaint Chief Complaint: EDWeakness Stated Complaint: GENERAL WEAKNESS Time Seen by Provider: 04/02/18 07:09 Hx Obtained From: Patient Onset/Duration: Lasting Days, Still Present Timing: Constant, Lasting Days Severity Initially: Mild Severity Currently: Mild Pain Intensity: 0 Pain Scale Used: 0-10 Numeric Location: Diffuse Radiates: No Character: Not Applicable Aggravating Factor(s): Nothing Alleviating Factor(s): Nothing Associated Signs And Symptoms: Positive: Diarrhea. Negative: Fever, Chest Pain , Back Pain - Allergies/Home Medications Allergies/Adverse Reactions: Allergies Allergy/AdvReac Type Severity Reaction Status Date / Time lactose Allergy GI Upset Verified 11/21/17 15:29 PMH/Surg Hx/FS Hx/Imm Hx Endocrine/Hematology History: Reports: Hx Anemia Denies: Hx Diabetes, Hx Systemic Lupus Erythematosus Cardiovascular History: Reports: Hx Coronary Artery Disease, Hx Hypercholesterolemia, Hx Hypertension Denies: Hx Congestive Heart Failure, Hx Pacemaker/ICD, Other Cardiovascular Problems/Disorders Respiratory History: Reports: Hx Chronic Obstructive Pulmonary Disease (COPD), Other Respiratory Problems/Disorders - ex smoker/ copd GI History: Reports: Hx Diverticulosis, Hx Gastroesophageal Reflux Disease - on meds, Hx Gastrointestinal Bleed - with diverticulitis, Hx Irritable Bowel - possible, Hx Obstructive Bowel, Other GI Disorders - hsx of gi bleed 2nd to diverticulitis, esophogeal stretchingx2 History: Reports: Hx Chronic Renal Failure, Hx Dialysis, Hx Renal Disease, Other Problems/Disorders - left nephrectomy 1949, bladder [id number] Musculoskeletal History: Reports: Hx Arthritis - back, shoulders, Hx Gout, Other Musculoskeletal History - hx of injections and L/R ablation L-4 L-5 S-1, osteo in left foot '06 Denies: Hx Rheumatoid Arthritis Sensory History: Reports: Hx Cataracts - surgery bilat 2010, Hx Hearing Aid Denies: Hx Contacts or Glasses, Hx Legally Blind Opthamlomology History: Reports: Hx Cataracts - surgery bilat 2010 Denies: Hx Contacts or Glasses, Hx Legally Blind EENT History: Denies: Hx Deafness Neurological History: Reports: Other Neuro Impairments/Disorders - PAIN CLINIC PATIENT Psychiatric History: Reports: Hx Anxiety - 10 years ago Denies: Hx Panic Disorder - Cancer History Cancer Type, Location and Year: BLADDER Hx Chemotherapy: No - Surgical History Surgery Procedure, Year, and Place: Right Arm HD fistula 12/2015. 194 left nephrectomy. cervical discectomy . endarectomy left carotid 11/10. bladder tumor removed 1979. turp 1982. right carotid stent 04/07. esophageal stretching in and AND 2015, bilat cataract. anemia surgery 01/10 Hx Anesthesia Reactions: No Infectious Disease History: No Infectious Disease History: Reports: Hx Clostridium Difficile, Hx Shingles Denies: Hx Hepatitis, Hx Human Immunodeficiency Virus (HIV), Hx of Known/ Suspected MRSA, Hx Tuberculosis, Hx Known/Suspected VRE, Hx Known/Suspected VRSA , History Other Infectious Disease, Traveled Outside the [place] in Last 30 Days - Family History Known Family History: Positive: Cardiac Disease, Hypertension - Social History Occupation: Retired Lives: With Family Alcohol Use: None Alcohol Amount: vodka Substance Use Type: Reports: None Smoking Status (MU): Former Smoker Type: Cigarettes Amount Used/How Often: 1 pack/day Have You Smoked in the Last Year: No Review of Systems Negative: Fever Negative: Chest Pain Positive: Shortness Of Breath - upon exertion Positive: Diarrhea. Negative: Abdominal Pain Positive: Edema - bilateral feet Positive: Weakness All Other Systems Reviewed And Are Negative: Yes Physical Exam - Summary Physical Exam Summary: Appearance: Well appearing, no pain distress, peritoneal dialysis catheter, fistula in RUE Skin: warm, dry, pallor in fingers, poor color to face, covered in stool Head/face: normal Eyes: EOMI, SIMONE ENT: normal Neck: supple, non-tender Respiratory: CTA, breath sounds present Cardiovascular: Soft systolic murmur, pulses symmetrical Abdomen: non-tender, soft, peritoneal dialysis catheter Bowel Sounds: present Musculoskeletal: strength/ROM intact, heavy edema in both feet that does not travel above ankles, fistula in RUE Neuro: normal, sensory motor intact, A&Ox3 Triage Information Reviewed: Yes Vital Signs On Initial Exam: Initial Vitals Temp Pulse Resp BP Pulse Ox 97.3 F 81 16 132/60 98 04/02/18 07:10 04/02/18 07:10 04/02/18 07:10 04/02/18 07:10 04/02/18 07:10 Vital Signs Reviewed: Yes Diagnostics - Vital Signs Vital Signs Temp Pulse Resp BP Pulse Ox 04/02/18 07:10 97.3 F 81 16 132/60 98 - Laboratory Result Diagrams: 04/02/18 07:47 04/02/18 07:47 Lab Statement: Any lab studies that have been ordered have been reviewed, and results considered in the medical decision making process. - Radiology CXR Xray Interpretation: No Acute Changes Radiology Interpretation Completed By: Radiologist - No active cardiopulmonary disease. Dr. Ny has reviewed this report. - EKG 0719 Cardiac Rate: Bradycardia - 57 EKG Rhythm: Sinus Bradycardia ST Segment: Non-Specific Ectopy: PACs EKG Interpretation: nl axis, non specific ST changes Re-Evaluation - Re-Evaluation First Eval Change: Improved Abdominal Pain Fem Course/Dx - Course Course Of Treatment: Large volume IV fluids not given as pt is on renal dialysis and cannot tolerate large volumes. Patient is peripherally clamped down with pallor in his fingers. He has been weak with heavy diarrhea. On antibiotics for recent Escherichia coli peritonitis related to peritoneal dialysis. Awaiting stool testing for C. difficile, etc. Started empiric oral vancomycin per direction of hospitalist. Admit for further. - Diagnoses Differential Diagnosis/HQI/PQRI: Other - Antibiotic associated diarrhea, C. difficile colitis Provider Diagnoses: ESRD (end stage renal disease) on dialysis, Antibiotic-associated diarrhea, Weakness - Provider Notifications Discussed Care Of Patient With: Jane Castellon Time Discussed With Above Provider: 08:44 Instructed by Provider To: Other - Accepts admission, wants him on oral actomycin. Discharge - Sign-Out/Discharge Documenting (check all that apply): Patient Departure - admit - Discharge Plan Condition: Fair Disposition: ADMITTED TO [facility] Referrals: Meliton Sheriff MD [Primary Care Provider] - - Billing Disposition and Condition Condition: FAIR Disposition: Admitted to [facility]
[2018-04-02 08:05] LABS: ABS Basophils 0 10^3/ul (0-0.2); ABS Eosinophils 0 10^3/ul (0-0.6); ABS Lymphocytes 0.6 10^3/ul (1.0-4.8); ABS Monocytes 0.8 10^3/ul (0-0.8); ABS Neutrophils 6.9 10^3/ul (1.5-7.7); ABS Nucleated RBC 0 10^3/ul; Eosinophil % 0 % (0-6); Hematocrit 37 % (42-52); Hemoglobin 12.2 g/dl (14.0-18.0); Lymphocyte % 7.6 % (25-47); Mean Corpuscular HGB Conc 33 g/dl (31-36); Mean Corpuscular Hemoglobin 32 pg (27-31); Mean Corpuscular Volume 96 fL (80-94); Mean Platelet Volume 6.5 um3 (7.4-10.4); Nucleated Red Blood Cells % 0; Platelet Count 233 10^3/ul (150-450); Red Cell Distribution Width 15 % (10.5-15); White Blood Count 8.3 10^3/ul (3.5-10.8)
[2018-04-02 08:10] LABS: Urine Appearance Cloudy; Urine Blood 1+ (Negative); Urine Color Amber; Urine Ketones Negative (Negative); Urine Protein 1+(30 mg/dL) (Negative); Urine Red Blood Cell Trace(0-2/hpf) (Absent); Urine Urobilinogen Negative (Negative); Urine White Blood Cell Absent (Absent)
[2018-04-02 08:16] LABS: INR 0.86 (0.77-1.02)
--- NOTE | 2018-04-02 08:21 | RAD ---
HISTORY: weakness COMPARISONS: March 20, 2015 VIEWS: 1: frontal portable view of the chest at 8:14 AM. The patient is obliqued to the left. FINDINGS: LINES AND TUBES: None. CARDIOMEDIASTINAL SILHOUETTE: The cardiomediastinal silhouette is normal for portable technique. PLEURA: The costophrenic angles are sharp. No pleural abnormalities are noted. LUNG PARENCHYMA: The lungs are clear. ABDOMEN: The upper abdomen is clear. There is no subphrenic gas. BONES AND SOFT TISSUES: No bone or soft tissue abnormalities are noted. IMPRESSION: NO ACTIVE CARDIOPULMONARY DISEASE.
[2018-04-02] MEDS ORDERED: Vancomycin CAP* 125 MG CAP PO ONE (08:44)
[2018-04-02] MEDS ORDERED: NS 0.9% 1000 ML* 1,000 ML IV SCH (09:00)
[2018-04-02] MEDS ORDERED: Acetaminophen TAB* 325 MG PO PRN (11:41)
[2018-04-02] MEDS ORDERED: Albuterol 2.5 MG/3 ML NEB.SOL* (0.083%) INH PRN (11:41)
[2018-04-02] MEDS ORDERED: Potassium Chlor TAB* 20 MEQ TAB.ER PO ONE (11:50)
[2018-04-02] MEDS ORDERED: NS 0.9% 1000 ML* 500 ML IV SCH (12:00)
[2018-04-02] MEDS ORDERED: Cefepime 1 GM in Dextrose(*) 1 GM/50 ML BAG IV SCH (12:00)
[2018-04-02] MEDS: Albuterol/Ipratropium NEB.SOL* Albuterol 2.5 MG/Ipratropium 0.5 MG 3 ML INH SCH ×3 (12:13→20:47)
--- NOTE | 2018-04-02 12:41 | RAD ---
HISTORY: cough, sob, rhochni right lung, COMPARISONS: Chest x-ray dated April 02, 2013, CT dated March 20, 2018 TECHNIQUE: Multiple contiguous axial CT scans of the chest were obtained without intravenous contrast. Coronal and sagittal multiplanar reformations are also submitted for review. FINDINGS: The study is limited by the lack of intravenous contrast. This limits evaluation of the solid organs and vasculature. NECK AND THYROID: The lower neck and thyroid are unremarkable. The right carotid stent is noted. CHEST WALL: There is no lower cervical, axillary, or supraclavicular lymphadenopathy by size criteria. HEART AND PERICARDIUM: Coronary and valvular cardiac calcifications are noted. AORTA AND PULMONARY VASCULATURE: There is calcification of the thoracic aorta. The pulmonary vasculature is unremarkable. MEDIASTINUM: There are calcified hilar lymph nodes without lymphadenopathy by size criteria. DEE: A calcified central lymph nodes without lymphadenopathy by size criteria. AIRWAY AND ESOPHAGUS: There is persistent bronchiectasis of the lower lobes bilaterally with peribronchial thickening. LUNG PARENCHYMA: There is minimal septal and nonseptal subpleural thickening along the lower lungs bilaterally. PLEURA: No pleural abnormalities are noted. UPPER ABDOMEN: There is a small amount of ascites. BONES AND SOFT TISSUES: No bone or soft tissue abnormalities are noted. OTHER: None. IMPRESSION: 1. SUBPLEURAL FIBROTIC CHANGES OF THE LUNG BASES WITH BIBASILAR BRONCHIECTASIS. THE APPEARANCE IS SIMILAR TO THE PREVIOUS EXAMINATION. 2. ASCITES. 3. 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
[2018-04-02] MEDS: metroNIDAZOLE TAB* 250 MG PO SCH ×2 (13:03→20:53)
[2018-04-02] MEDS ORDERED: Vancomycin CAP* 125 MG CAP PO SCH (14:00)
--- NOTE | 2018-04-02 15:55 | ECHO ---
Patient: NATHANIEL AUGUST [facility] Rec#: [id number] : 1930 Date: 04/02/2018 Age: 88y Height: 173 cm / 68.1 in Weight: 54.1 kg / 119.2 lbs Sex: M BSA: 1.64 Room#: -10 Admit Date#: 04/02/2018 Type: Inpatient Referring: Pan Irwin NP Reading: Dominick Lopez DO Process Technician: Jennifer Renteria RDCS CC: Meliton Sheriff MD Transthoracic Echocardiogram Indication: SOB BP: 108/42 HR: 70 Rhythm: NSR Findings History: HTN,HLD,CAD,COPD,CVA,renal failure with peritoneal dialysis. Technical Comments: The study quality is fair. Completed at 1440. The study is technically limited due to the patient's history of COPD. Left Ventricle: The left ventricular chamber size is normal. Mild concentric left ventricular hypertrophy is observed. Global left ventricular wall motion and contractility are within normal limits. There is normal left ventricular systolic function. The estimated ejection fraction is 60-65%. Abnormal left ventricular diastolic function is observed. Left Atrium: The left atrial chamber size is normal. Right Ventricle: The right ventricular chamber size and systolic function are within normal limits. Right Atrium: The right atrium is mildly dilated. Aortic Valve: The aortic valve is trileaflet. There is no evidence of aortic valve thickening. There is mild to moderate aortic regurgitation. There is no evidence of aortic stenosis. Mitral Valve: The mitral valve leaflets are mildly thickened. There is mild mitral regurgitation. There is no evidence of mitral stenosis. Tricuspid Valve: The tricuspid valve leaflets are normal. There is trace tricuspid regurgitation. Unable to estimate the right ventricular systolic pressure. Pulmonic Valve: The pulmonic valve appears normal. There is a trace pulmonic regurgitation. There is no pulmonic stenosis. Pericardium: There is no significant pericardial effusion. Aorta: There is no dilatation of the ascending aorta. The aortic arch is not well visualized. There is no dilation of the aortic root. Pulmonary Artery: The main pulmonary artery is not well visualized. Venous: The venous system is not well visualized. [place] to patient's peritoneal dialysis catheter. Conclusions The left ventricular chamber size is normal. Mild concentric left ventricular hypertrophy is observed. There is normal left ventricular systolic function. The estimated ejection fraction is 60-65%. The left atrial chamber size is normal. The right ventricular chamber size and systolic function are within normal limits. There is mild to moderate aortic regurgitation. Unable to estimate the right ventricular systolic pressure. None prior for comparison at time of interpretation Measurements Name Value Normal Range RVIDd (AP) 2D 2.5 cm (0.9 - 2.6) RVDdMajor (2D) 2.7 cm (2.2 - 4.4) RAd ISD 4CH 5.7 cm (3.4 - 4.9) RA (A4C)W 2.6 cm (2.9 - 4.6) IVSd (2D) 1.4 cm (0.6 - 1) LVPWd (2D) 1.2 cm (0.6 - 1) LVIDd (2D) 4.3 cm (3.6 - 5.4) LVIDs (2D) 2.7 cm - Aortic Annulus 2.3 cm (1.4 - 2.6) Ao root diameter (2D) 3.2 cm (2.1 - 3.5) Ascending Ao 2.9 cm (2.1 - 3.4) LA dimension (AP) 2D 2.5 cm (2.3 - 3.8) LAd ISD 4CH 5.6 cm (2.9 - 5.3) LA ISD 4CH W 4.3 cm (2.5 - 4.5) Name Value Normal Range MV E-wave Vmax 0.8 m/sec - MV deceleration time 246 msec - MV A-wave Vmax 1.1 m/sec - MV E:A ratio 0.7 ratio - LV septal e' Vmax 0.08 m/sec - LV lateral e' Vmax 0.1 m/sec - Name Value Normal Range AV Vmax 1.7 m/sec - AV VTI 37 cm - AV peak gradient 11 mmHg - AV mean gradient 4 mmHg - LVOT Vmax 1.1 m/sec - LVOT VTI 22.8 cm - LVOT peak gradient 5 mmHg - LVOT mean gradient 2 mmHg - AR PHT 503 msec - Name Value Normal Range PV Vmax 0.8 m/sec - PV peak gradient 2 mmHg -
--- NOTE | 2018-04-02 16:04 | HP ---
CC: Dr. Sheriff; Dr. Albert; Dr. Ward * HISTORY AND PHYSICAL: DATE OF ADMISSION: 04/02/18 PRIMARY CARE PROVIDER: Dr. Sheriff. ATTENDING PHYSICIAN WHILE IN THE HOSPITAL: Dr. Jane Castellon * (report dictated by Pan Irwin NP). CONSULTING INFECTIOUS DISEASE SPECIALIST: Dr. Albert. CONSULTING SEAMLESS TUBE DRAWER: Dr. Ward. CHIEF COMPLAINT: Weakness. HISTORY OF PRESENT ILLNESS: Mr. Farah is an 88-year-old male patient with multiple medical problems, who was recently here in the hospital admitted for E. coli peritonitis. He does have a peritoneal catheter. He also was diagnosed with aspiration pneumonia, history of SBO. Since being discharged, the has noted that he has been progressively weak. He was really unable to get into the house when he was discharged. She says about 3 days, he has been feeling well, but she has also noted and the patient has noted that he has had intermittent diarrhea. He has had a history of C. diff. In addition to the history of C. diff, he again has extensive history of CVA; carotid artery disease; gout; end-stage renal disease, on peritoneal dialysis; again recent SBO and aspiration pneumonia; bladder cancer; arthritis; hypertension; IBS; renal artery stenosis; CAD; COPD; chronic back pain. She notes that he has been progressively getting weaker, now really unable to get off the toilet. She really was having a hard time caring for him. She does note that he has had liquid stools. The patient says that he does not really know how many he has had, to the 's knowledge there have not been innumerable, she says that it has been maybe 3 or 4 times a day, tops, but she is not really sure. The patient says it has not really been explosive, at times it is watery but then other times it is formed. He denies having any abdominal pain, there has been no more vomiting. He does admit to having a cough, which was started the last couple of days. The notes that he has been belching a lot, but no vomiting. He denies abdominal pain, no chest pain. He does admit to dyspnea on exertion and again his biggest complaint is he is just feeling fatigued that he has no energy to do anything. He has had no appetite. He came into the ED today. He was evaluated. There was concern for underlying infection, possible C. difficile given his history of this. He was noted to have elevated troponin. He appeared to be dehydrated. Because of these findings, we were asked to evaluate for admission. PAST MEDICAL HISTORY: Significant for: 1. Recent SBO. 2. Aspiration pneumonia. 3. End-stage renal disease, on peritoneal dialysis. 4. E. coli peritonitis for which he finished a course of antibiotics. He was sent home on cefdinir for 10 days, which he says he finished. 5. History of bladder cancer. 6. Arthritis. 7. CVA. 8. Carotid artery disease. 9. Gout. 10. Hypertension. 11. IBS. 12. Renal artery stenosis. 13. History of CAD. 14. COPD. 15. Chronic back pain. PAST SURGICAL HISTORY: The patient has had: 1. Bladder resection. 2. Right carotid stent. 3. Left carotid endarterectomy. 4. Cardiac catheterization. 5. Peritoneal dialysis catheter placement. 6. AV fistula placement. 7. Left kidney nephrectomy. MEDICATIONS: Home meds according to his list include: 1. Ranitidine 1 tablet p.o. daily. 2. He was discharged on a prednisone taper, then to resume 5 mg p.o. daily which he has not been taking. 3. He also takes Benadryl 25 mg at bedtime. 4. Amiloride 5 mg daily. 5. Sodium bicarb 1 tablet p.o. daily. 6. Crestor 20 mg daily. 7. Omeprazole 20 mg p.o. b.i.d. 8. Fish oil 1 tablet p.o. daily. 9. Nitro 0.4 mg p.o. every 5 minutes as needed. 10. Bystolic 10 mg p.o. daily. 11. Multivitamin 1 tablet daily. 12. Megestrol 625 mg p.o. daily. 13. Magnesium oxide 400 mg daily. 14. Probiotic 1 capsule daily. 15. Ivanhoe 1 tablet every 6 hours as needed. 16. Breo 1 puff inhaled daily. 17. Dicyclomine 20 mg p.o. four times a day. 18. Plavix 1 tablet p.o. daily. 19. Cefdinir 300 mg p.o. daily, which he has finished. 20. Calcitriol 1 capsule p.o. daily. 21. Aspirin 81 mg daily. 22. Allopurinol 100 mg daily. ALLERGIES TO MEDICATIONS: Include none, but he is sensitive to lactulose. FAMILY HISTORY: Mother had bladder cancer and his father committed suicide. SOCIAL HISTORY: He is a former smoker, quit in 1979. He does not drink alcohol. His surrogate decision maker is his . REVIEW OF SYSTEMS: There is no documented fever. He is denying any significant weight change. He is denying having any double vision. He denies having any ear discharge. He does admit to having a cough. He does admit to dyspnea on exertion. There is no abdominal pain. There have been no reports of nausea, vomiting. He has had diarrhea. He denies having any dysuria. There has been no frequency. No seizure, no loss of consciousness. No pruritus and no skin ulcerations. Review of 14 systems completed, all others negative. PHYSICAL EXAMINATION GENERAL: At this time, Mr. Farah is an 88-year-old male patient, he is sitting in the ED stretcher. He does not appear to be in acute distress. He is chronically ill appearing. VITAL SIGNS: Reveal blood pressure 108/42, pulse 63, respirations 21, O2 saturations are 97%, temperature was 97.3. HEENT: Head is atraumatic. Normocephalic. Eyes: EOMs are intact. His sclerae were anicteric and not pale. Throat: Oral mucosa appears to be dry. No oropharyngeal erythema. NECK: Supple. LUNGS: He had significant rhonchi in his right base with slight wheeze. He had equal diaphragmatic expansion. HEART: Sounds S1, S2. He had a regular rate and rhythm. He was bradycardic. He had no murmurs, rubs, or gallops. ABDOMEN: Soft, it was flat. He does have a PD catheter, which again the site was assessed. There is no erythema noted today. No purulent discharge. Again , the site appeared to be benign and nontender. Bowel sounds were present. EXTREMITIES: His pulses, he had 3+ pitting edema in the pedal area. He is able to move all 4 extremities. He had 4/5 strength in lower extremities and 5/ 5 strength in the upper extremities. NEUROLOGIC: He is awake, he is alert, he is aware it is 04/02/18. His pie dough roller were equal. His tongue was midline and speech was clear. He had no gross focal deficits. [id number] intact bilaterally. He had no gross focal deficits. SKIN: His skin is intact. He does have stage I to the sacrum. DIAGNOSTIC STUDIES/LAB DATA: His labs today are revealing WBC of 8.3, RBC of 3.80, hemoglobin of 12.2 which is up from his previous hemoglobin, his hematocrit is 37, his platelet count 233. His INR was 0.86, his PTT was 27.9. Sodium 130; potassium of 3.3; chloride of 90; his bicarb was 31; BUN was 47; his creatinine was 4.34, at discharge on 03/23/18, he was 3.43, his baseline appears to be right around 3.8 to 3.9; his glucose was 93; lactate 1.5; calcium 8.1. Total bili 0.5, AST 29, ALT 20, alk phos was 90. His troponin was 0.19; his previous troponin was 0.03. Albumin was 2.6. Urine showed 1+ protein, 1+ blood, 1+ bilirubin. He did have an EKG obtained today, which I did review with my attending, it does show sinus bradycardia. He does have diffuse ST depression in V4, 5 and 6 , which is in also little bit in V3, which when we look, previously he has had, he does have ST elevations. He has sinus bradycardia. Previous EKG is consistent. He did have a chest x-ray obtained today. The radiologist read this as clear costophrenic angles; however, it does appear that he has a possible fluid collection in the right base, possible infiltrate under my review. Old medical records were reviewed. IMPRESSION AND PLAN: Mr. Farah is an 88-year-old male patient with a complex medical history coming into the ED today with complaints of weakness. On evaluation today, it was noted that he did appear to have elevated troponin. He appeared to be dehydrated. In addition to this, there was concern for Clostridium difficile. He will be admitted under inpatient status for: 1. Weakness. Again, etiology is unclear, could be multifactorial. He had actually formed bowel movement down here in the ED, he was , so I think Clostridium difficile is less likely. He does have a liquid stool; I will send it off. On exam though, he was very rhonchorous on his right base, so I am concerned that may be has aspirated again. He could have possible aspiration pneumonitis. He does have some abnormal findings from the chest x-ray on the right side. I do think he warrants a repeat CT imaging, certainly aspiration pneumonia could be contributing to his weakness. To be safe, I will place him on cefepime. I will also place him on p.o. Flagyl, which will cover possible Clostridium difficile and possible aspiration pneumonia. He has been santillan cultured. We will get sputum cultures. We will also get legionella and Streptococcus pneumoniae antigen and I did touch base with Dr. Albert. I also touched base with Dr. Ward to see if we can get followup cultures of his peritoneal dialysis fluid as it certainly, if he has underlying infection, could be contributing to the weakness. He also does appear to be little bit dehydrated. He did get a bolus here in the ED and I am going to give him another 500 cc of fluid throughout the day. Because of the question of aspiration pneumonia, I will place him on n.p.o. with aspiration precautions and I will get a speech and swallow evaluation prior to feeding the patient. 2. Elevated troponin. Again, EKG is unchanged. He is not having any active cardiac symptoms with the exception of dyspnea on exertion. I am going to get an echo. I will trend these. We will place on telemetry. He is on aspirin, beta brandon, and statin therapy. If they continue to elevate, I certainly will get formal Cardiology evaluation, but at this point I think we will continue with aggressive medical management and will continue to follow. I will try to get those records from [facility] and the cath report as well. 3. History of recent of small bowel obstruction. Again, he is not having any active vomiting or abdominal discomfort. I think this has now resolved. We will continue to follow. Should he have any vomiting, I will have low threshold for repeat imaging and Surgical consult. 4. Question of aspiration pneumonia. Again, cefepime, Flagyl, santillan culturing the patient. He has been n.p.o., aspiration precaution has been ordered, and we will get speech evaluation. 5. End-stage renal disease, on peritoneal dialysis. I did touch base with Dr. Ward, he will be evaluating and we will try to get followup cultures. Dr. Ward believes that they got followup cultures in the outpatient setting. I do not have access to those records. 6. Bladder cancer. Follow with PCP. 7. Arthritis. P.r.n. Tylenol has been ordered. 8. History of cerebrovascular accident with carotid artery disease. Continue with secondary prevention. He is on statin, Plavix, aspirin. 9. Gout. Continue allopurinol. 10. Hypertension. Continue meds as prescribed withhold parameters. 11. Irritable bowel syndrome. Continue his Bentyl. 12. Renal artery stenosis. Again, follow with his primary diabetes trainer. 13. Coronary artery disease. Aspirin, statin, beta brandon, trending troponins. He is not having any active cardiac symptoms. I will certainly go ahead and trend these troponins and get an echo. 14. Chronic obstructive pulmonary disease. I am going to go ahead and put him on standing nebs, Dulera, pulmonary toileting because of the rhonchi. He is not wheezing on exam. He just had a course of steroids. Hold off on these for now. If he does become wheezing or hypoxic, I will certainly add on the steroids , but I do not think he needs them just yet. 15. Chronic back pain. P.r.n. Tylenol has been ordered. 16. DVT prophylaxis. I have ordered heparin subcu. 17. Code status. He is a full code. 18. Fluids, electrolytes, and nutrition. He is n.p.o. pending swallow evaluation. TIME SPENT: Time spent on the admission was 60 minutes, greater than half of the time spent [id number] with the patient, obtaining my history and physical , the other half of the time was spent going over the plan of care with the patient and implementing the plan of care. I did discuss plan of care with my attending, Dr. Castellon; she is in agreement. PAN IRWIN, MENDOZA [id number]/[facility] #: [id number] DARRYL
[2018-04-02] MEDS: Dicyclomine CAP* 10 MG PO SCH ×3 (16:11→20:54)
[2018-04-02] MEDS: Heparin VIAL(*) 5000 UNITS/ML VIAL (FIVE THOUSAND) SUBCUT SCH ×2 (17:30→20:53)
[2018-04-02] MEDS: Mometasone/Formoter 200/5 MDI INH SCH (20:48)
[2018-04-02] MEDS: CMC:Pantoprazole TAB (NF) 40 MG TAB PO SCH (20:53)
[2018-04-02] MEDS: Magnesium Oxide TAB* 400 MG PO SCH (20:53)
[2018-04-02] MEDS: CMCS: OMEGA-3 FATTY ACIDS (NF) 1,000 MG CAP PO SCH (20:58)
[2018-04-03] MEDS: Heparin VIAL(*) 5000 UNITS/ML VIAL (FIVE THOUSAND) SUBCUT SCH ×3 (05:43→21:08)
[2018-04-03 06:49] LABS: ABS Basophils 0 10^3/ul (0-0.2); ABS Eosinophils 0 10^3/ul (0-0.6); ABS Lymphocytes 0.6 10^3/ul (1.0-4.8); ABS Monocytes 0.6 10^3/ul (0-0.8); ABS Neutrophils 6.2 10^3/ul (1.5-7.7); ABS Nucleated RBC 0 10^3/ul; Eosinophil % 0.2 % (0-6); Hematocrit 30 % (42-52); Hemoglobin 10.1 g/dl (14.0-18.0); Lymphocyte % 8.5 % (25-47); Mean Corpuscular HGB Conc 34 g/dl (31-36); Mean Corpuscular Hemoglobin 32 pg (27-31); Mean Corpuscular Volume 96 fL (80-94); Mean Platelet Volume 6.5 um3 (7.4-10.4); Nucleated Red Blood Cells % 0.1; Platelet Count 158 10^3/ul (150-450); Red Blood Count 3.13 10^6/ul (4.00-5.40); Red Cell Distribution Width 15 % (10.5-15); White Blood Count 7.4 10^3/ul (3.5-10.8)
[2018-04-03 07:00] LABS: EGFR Non-African American 13.2 (>60)
[2018-04-03] MEDS ORDERED: Nebivolol (NF) 10 MG TAB PO SCH (09:00)
[2018-04-03] MEDS: Magnesium Oxide TAB* 400 MG PO SCH ×2 (09:49→21:01)
[2018-04-03] MEDS: metroNIDAZOLE TAB* 250 MG PO SCH ×3 (09:49→21:01)
[2018-04-03] MEDS: Multivitamins/Minerals TAB PO SCH (09:49)
[2018-04-03] MEDS: Mometasone/Formoter 200/5 MDI INH SCH ×2 (09:49→20:30)
[2018-04-03] MEDS: Clopidogrel TAB* 75 MG PO SCH (09:50)
[2018-04-03] MEDS: Lactobacillus Acidophilus* 1 TAB PO SCH (09:50)
[2018-04-03] MEDS: Allopurinol TAB* 100 MG PO SCH (09:50)
[2018-04-03] MEDS: Sodium Bicarbonate (ANTACID)* 650 MG TAB PO SCH (09:50)
[2018-04-03] MEDS: Aspirin EC TAB* 81 MG TAB.EC PO SCH (09:51)
[2018-04-03] MEDS: Famotidine TAB* 20 MG PO SCH (09:51)
[2018-04-03] MEDS: CMCS: OMEGA-3 FATTY ACIDS (NF) 1,000 MG CAP PO SCH ×2 (10:03→21:01)
[2018-04-03] MEDS: NEBIVOLOL 2.5 MG PO SCH (10:03)
[2018-04-03] MEDS: Calcitriol CAP* 0.25 MCG PO SCH (10:35)
[2018-04-03] MEDS: CMC:Pantoprazole TAB (NF) 40 MG TAB PO SCH ×2 (10:35→21:01)
[2018-04-03] MEDS: CMC:Rosuvastatin (NF) 5 MG TAB PO SCH (10:35)
[2018-04-03] MEDS: Megestrol SUSP* 400 MG/10 ML UDC PO SCH (10:39)
[2018-04-03] MEDS: Dicyclomine CAP* 10 MG PO SCH ×4 (10:41→21:01)
[2018-04-03] MEDS ORDERED: cefTRIAXone(*) 1 GM in NS 0.9% 50 ML* 50 ML IVPB SCH (12:00)
--- NOTE | 2018-04-03 12:12 | PN ---
Subjective Date of Service: 04/03/18 Interval History: CC: Weakness Pt examined today at the bedside. He states he feels better today. He is requesting his back pain medications. He states he is taking norco and that helps him. He denies weakness to lue exts, denies abdominal pain, denies nausea and denies vomiting. ROS- denies fever, denies chills, denies abdominal pain, denies nausea, denies vomiting, denies lightheadedness, denies loc, denies chest pain, denies sob, review of 11 systems completed all others negative, Objective Active Medications: Acetaminophen (Tylenol Tab*) 650 mg PO Q4H PRN PRN Reason: FEVER/PAIN Albuterol (Ventolin 2.5 Mg/3 Ml Neb.Terri*) 2.5 mg INH Q2H PRN PRN Reason: SOB/WHEEZING Allopurinol (Zyloprim Tab*) [address] [facility] Last Admin: 04/03/18 09:50 Dose: 100 mg Aspirin (Aspirin Ec Tab*) [address] [facility] Last Admin: 04/03/18 09:51 Dose: 81 mg Calcitriol (Rocaltrol Cap*) 0.[address] [facility] Last Admin: 04/03/18 10:35 Dose: 0.25 mcg Clopidogrel Bisulfate (Plavix Tab*) [address] [facility] Last Admin: 04/03/18 09:50 Dose: 75 mg Dicyclomine HCl (Bentyl Cap*) [address] [facility] Last Admin: 04/03/18 10:41 Dose: 20 mg Famotidine (Pepcid Tab*) [address] [facility]; Protocol Last Admin: 04/03/18 09:51 Dose: 20 mg Fish Oil (Fish Oil (Nf)) 1,[address] [facility] Last Admin: 04/03/18 10:03 Dose: Not Given Heparin Sodium (Porcine) (Heparin Vial(*)) 5,[address] [facility] Last Admin: 04/03/18 05:43 Dose: 5,000 units Sodium Chloride (Ns 0.9% 1000 Ml*) 500 mls @ 60 mls/hr IV .PER RATE [facility] Last Admin: 04/02/18 19:39 Dose: 60 mls/hr Ceftriaxone Sodium 1 gm/ (Sodium Chloride) 50 mls @ 200 mls/hr IVPB Q24H [facility] Lactobacillus Rhamnosus (Lactobacillus Acidophilus*) [address] [facility] Last Admin: 04/03/18 09:50 Dose: 1 tab Magnesium Oxide (Magox 400 Tab*) [address] [facility] Last Admin: 04/03/18 09:49 Dose: 400 mg Megestrol Acetate (Megestrol Susp*) [address] [facility] Last Admin: 04/03/18 10:39 Dose: 800 mg Metronidazole (Flagyl Tab*) [address] [facility] Last Admin: 04/03/18 09:49 Dose: 500 mg Mometasone Furoate/Formoterol Fumar (Dulera 200/5 Mdi*) [address] [facility] Last Admin: 04/03/18 09:49 Dose: 2 puff Multivitamins/Minerals (Theragran/Minerals Tab*) [address] [facility] Last Admin: 04/03/18 09:49 Dose: 1 tab Mupirocin (Bactroban 2 % Oint*) [address] [facility] Nebivolol (Bystolic Tab (Nf)) [address] [facility] Last Admin: 04/03/18 10:03 Dose: Not Given Pantoprazole Sodium (Protonix Tab (Nf)) [address] [facility] Last Admin: 04/03/18 10:35 Dose: 40 mg Rosuvastatin Calcium (Crestor (Nf)) [address] [facility]; Protocol Last Admin: 04/03/18 10:35 Dose: 5 mg Sodium Bicarbonate (Sodium Bicarbonate (Antacid)*) [address] [facility] Last Admin: 04/03/18 09:50 Dose: 650 mg Vital Signs - 8 hr 04/03/18 04/03/18 07:38 10:41 Temperature 99.4 F Pulse Rate 78 Respiratory 16 16 Rate Blood Pressure 94/40 (mmHg) O2 Sat by Pulse 98 Oximetry Oxygen Devices in Use Now: None Appearance: 88 y/o male patient sitting in bed, NAD, Eyes: No Scleral Icterus Ears/Nose/Mouth/Throat: NL Teeth, Lips, Gums Neck: NL Appearance and Movements; NL JVP Respiratory: Symmetrical Chest Expansion and Respiratory Effort Cardiovascular: NL Sounds; No Murmurs; No JVD Abdominal: NL Sounds; No Tenderness; No Distention, - - PD catheter site clean, no errythema noted, Skin: No Rash or Ulcers Neurological: Alert and Oriented x 3 Lines/Tubes/Other Access: Clean, Dry and Intact Peripheral IV Result Diagrams: 04/03/18 06:14 04/03/18 06:14 Microbiology and Other Data: Microbiology 04/03/18 03:15 Stool Gross Appearance - Final Stool C. difficile DNA Amplification - Final 027 Presumptive NEGATIVE Toxigenic C.diff NEGATIVE Stool Lactoferrin - Final Rotavirus Antigen - Final Negative Rotavirus 04/02/18 07:45 Aerobic Blood Culture - Preliminary Blood Venous No Growth Day 1 Anaerobic Blood Culture - Preliminary No Growth Day 1 04/02/18 07:45 Aerobic Blood Culture - Preliminary Blood Venous No Growth Day 1 Anaerobic Blood Culture - Preliminary No Growth Day 1 04/02/18 16:15 Gram Stain - Final Body Fluid - Peritoneal 04/02/18 07:45 Legionella Urinary Antigen - Final Urine Negative Legionella Antigen Streptococcus pneumoniae Ag Screen - Final Negative S. pneumo Antigen Assess/Plan/Problems-Billing Assessment: 88 y/o male patient presenting with complaints of weakness, - Patient Problems (1) Weakness Current Visit: Yes Status: Acute Priority: High Comment: etiology unclear ? r/t medications or recurrence of infection, PD fluid sent for cx, awaint report, continue abx, ID following, PT OT will need Rehab, there was a question of cdiff stool negative (2) Elevated troponin Current Visit: Yes Status: Acute Priority: High Comment: echo stable, awaitn cath report, trop max .19, suspect r/t esrd and demand ischemia, resolving no symptoms, (3) CAD (coronary artery disease) Current Visit: Yes Status: Acute Priority: High Comment: Continue asa plavix and beta echo stable no chest pain (4) COPD (chronic obstructive pulmonary disease) Current Visit: Yes Status: Acute Priority: High Comment: continue nebs, and dulera lungs improved today (5) DVT prophylaxis Current Visit: Yes Status: Acute Priority: High Comment: Heparin sub-q (6) ESRD on peritoneal dialysis Current Visit: Yes Status: Acute Priority: High Comment: PD per nephro Dr mari following (7) Full code status Current Visit: Yes Status: Acute Priority: High Comment: (8) Hypertension Current Visit: Yes Status: Acute Priority: High Comment: holding medications patient bp 94 systolic today, and weight down from dry weight, suspect dehdraytion will follow (9) Bronchiectasis Current Visit: Yes Status: Acute Priority: High Comment: LUngs improved today, suspect finding on dot gexam r/t to this, will need follow up with pulm outpatient (10) Bladder cancer Current Visit: Yes Status: Acute Priority: High Comment: follow with pcp (11) Gout Current Visit: Yes Status: Acute Priority: High Comment: follow with pcp continue home meds (12) Chronic back pain Current Visit: Yes Status: Acute Priority: High Comment: will restart norco at lower dose, add lidoderm patch Status and Disposition: Await PD cultures, PT OT eval, will need new pcp at [place] and will need rehab,
[2018-04-03] MEDS: Lidocaine PATCH 5%* 1 PATCH TRANSDERM SCH (13:45)
[2018-04-03] MEDS: Mupirocin 2% OINT* TUBE TOPICAL SCH (18:39)
[2018-04-03] MEDS: Lidocaine Patch REMOVE* 1 NOTE MISC SCH (21:01)
[2018-04-03] MEDS: HYDROcodone/ACETAMIN 5-325 MG* 1 TAB PO PRN (21:06)
--- NOTE | 2018-04-03 21:06 | CONS ---
CONSULTATION REPORT: DATE OF CONSULT: 04/03/18 REQUESTING PROVIDER: Pan Irwin NP CONSULTING SERVICE: Infectious Disease. REASON FOR CONSULT: Weakness and intermittent diarrhea. IMPRESSION: 1. Recent admission with bacterial peritonitis in the setting of peritoneal dialysis catheter, small bowel obstruction, due to Escherichia coli, had a course of antibiotics. Now, no abdominal pain but the white cell count is 900 from peritoneal fluid, but predominantly monocytes as opposed to neutrophils when it was infected. He has no abdominal pain, so that seems less likely, though it is still a possibility. He is having formed stools some days, loose the other, so that along with a negative Clostridium difficile test argues against Clostridium difficile or other form of infectious colitis. He has had a cough and dyspnea on exertion. A chest CT showed bronchiectasis and atelectasis but no infiltrate, so I do not think he has a pneumonia. 2. End-stage renal disease, on peritoneal dialysis. No trouble with his peritoneal dialysis and dialysate comes out clear. Recurrence is a possibility but seems less likely. 3. Bronchiectasis by CT. 4. History of bladder cancer, status post cystectomy. 5. History of stroke. 6. Peripheral vascular disease. RECOMMENDATION: 1. Change cefepime to ceftriaxone while we wait for the body fluid culture of the peritoneal fluid, and the Flagyl. If those are all negative, I think it will be reasonable to stop his antibiotics. 2. PT and possible rehabilitation stay. HISTORY OF PRESENT ILLNESS: This is an 88-year-old male with end-stage renal disease, on peritoneal dialysis, recently here with small bowel obstruction, E. coli in the peritoneal fluid for which he had oral antibiotic therapy. Once he got home, he felt a bit better but was profoundly weak according to his , was unable to get up the stairs of their house without some help and has been languishing there. He has not had any fevers, chills, or sweats. He has had diarrhea intermixed with formed stools some days. He has no belly pain. Dialysate coming out is clear. Because of the weakness and cough, dyspnea on exertion, he came back to the hospital. Yesterday, his white count was 8, hemoglobin 12. C- reactive protein was 70. Today, he said he had a formed stool. No abdominal pain. No fevers, chills, or sweats. Appetite is okay. Just feels very weak. No cough. He has low back pain, which is a longstanding condition for him. PAST MEDICAL HISTORY: 1. End-stage renal disease, on peritoneal dialysis. 2. E. coli peritonitis, March 2018. 3. Small bowel obstruction. 4. Aspiration pneumonia. 5. Bladder cancer, status post cystectomy. 6. Arthritis. 7. Stroke. 8. Carotid artery disease, status post right carotid stent and left carotid endarterectomy. 9. Gout. 10. Hypertension. 11. Irritable bowel syndrome. 12. Renal artery stenosis. 13. Coronary artery disease. 14. COPD. 15. Chronic low back pain. 16. Status post left nephrectomy. MEDICATIONS: 1. Tylenol. 2. Allopurinol. 3. Aspirin. 4. Calcitriol. 5. Plavix. 6. Dicyclomine. 7. Famotidine. 8. Heparin subcutaneous injection. 9. Magnesium oxide. 10. Cefepime 1 g a day. 11. Megestrol. 12. Flagyl 500 mg by mouth 3 times a day. 13. Pantoprazole. 14. Rosuvastatin. 15. Sodium bicarbonate. ALLERGIES: None. FAMILY HISTORY: No recurrent infections. SOCIAL HISTORY: He lives with his . He has no sick contacts. He is a nonsmoker. REVIEW OF SYSTEMS: All negative for 14-point review of systems except as noted above. PHYSICAL EXAM: Vital Signs: Temperature 37, heart rate 80, respiratory rate 16 , blood pressure 100/40, oxygen saturation 98% on room air. In general, he is awake, not in distress. Neurologic: He is oriented x3. Follows all commands. Moves all extremities. HEENT: There is no conjunctival hemorrhage. Mucous membranes are moist. Neck: Supple without mass. Lymph Nodes: There is no cervical, supraclavicular, inguinal, axillary, or epitrochlear lymphadenopathy. Heart: Regular rate and rhythm without murmurs, rubs, or gallops. Lungs: Clear to auscultation bilaterally. Abdomen: Soft, nontender, nondistended. There is no tenderness to palpation. There are bowel sounds present. There is a peritoneal dialysis catheter without surrounding erythema. Skin: There is no rash or splinter hemorrhage. Musculoskeletal: There is no spine tenderness to palpation. LABORATORY DATA: White blood cell count 7, hemoglobin 10, platelets 158. Creatinine 4, potassium 3.5. C. diff PCR negative. Please see impressions and recommendations as outlined above. Thank you for asking me to see Mr. Farah in consultation. [id number]/[facility] #: [id number] DARRYL
[2018-04-04] MEDS: Heparin VIAL(*) 5000 UNITS/ML VIAL (FIVE THOUSAND) SUBCUT SCH ×3 (06:02→21:45)
[2018-04-04 06:03] LABS: ABS Basophils 0 10^3/ul (0-0.2); ABS Eosinophils 0 10^3/ul (0-0.6); ABS Lymphocytes 0.5 10^3/ul (1.0-4.8); ABS Monocytes 0.7 10^3/ul (0-0.8); ABS Neutrophils 5.9 10^3/ul (1.5-7.7); ABS Nucleated RBC 0 10^3/ul; Eosinophil % 0.1 % (0-6); Hematocrit 32 % (42-52); Hemoglobin 10.6 g/dl (14.0-18.0); Lymphocyte % 7.6 % (25-47); Mean Corpuscular HGB Conc 33 g/dl (31-36); Mean Corpuscular Hemoglobin 32 pg (27-31); Mean Corpuscular Volume 96 fL (80-94); Mean Platelet Volume 6.5 um3 (7.4-10.4); Nucleated Red Blood Cells % 0; Platelet Count 136 10^3/ul (150-450); Red Blood Count 3.35 10^6/ul (4.00-5.40); Red Cell Distribution Width 15 % (10.5-15); White Blood Count 7.2 10^3/ul (3.5-10.8)
[2018-04-04 06:23] LABS: EGFR Non-African American 13.6 (>60)
[2018-04-04] MEDS: Mometasone/Formoter 200/5 MDI INH SCH ×2 (07:18→20:10)
[2018-04-04] MEDS: Lactobacillus Acidophilus* 1 TAB PO SCH (08:24)
[2018-04-04] MEDS: Sodium Bicarbonate (ANTACID)* 650 MG TAB PO SCH (08:24)
[2018-04-04] MEDS: Clopidogrel TAB* 75 MG PO SCH (08:24)
[2018-04-04] MEDS: Famotidine TAB* 20 MG PO SCH (08:24)
[2018-04-04] MEDS: Allopurinol TAB* 100 MG PO SCH (08:24)
[2018-04-04] MEDS: metroNIDAZOLE TAB* 250 MG PO SCH (08:24)
[2018-04-04] MEDS: Magnesium Oxide TAB* 400 MG PO SCH ×2 (08:24→21:45)
[2018-04-04] MEDS: Multivitamins/Minerals TAB PO SCH (08:24)
[2018-04-04] MEDS: Aspirin EC TAB* 81 MG TAB.EC PO SCH ×2 (08:25→08:45)
[2018-04-04] MEDS: Calcitriol CAP* 0.25 MCG PO SCH (08:25)
[2018-04-04] MEDS: Dicyclomine CAP* 10 MG PO SCH ×4 (08:26→21:45)
[2018-04-04] MEDS: Lidocaine PATCH 5%* 1 PATCH TRANSDERM SCH (08:27)
[2018-04-04] MEDS: Megestrol SUSP* 400 MG/10 ML UDC PO SCH (08:28)
[2018-04-04] MEDS: Mupirocin 2% OINT* TUBE TOPICAL SCH (08:29)
[2018-04-04] MEDS: CMC:Pantoprazole TAB (NF) 40 MG TAB PO SCH ×3 (08:31→22:01)
[2018-04-04] MEDS: CMC:Rosuvastatin (NF) 5 MG TAB PO SCH (08:31)
[2018-04-04] MEDS: CMCS: OMEGA-3 FATTY ACIDS (NF) 1,000 MG CAP PO SCH ×2 (08:31→21:44)
[2018-04-04] MEDS: NEBIVOLOL 2.5 MG PO SCH (08:31)
--- NOTE | 2018-04-04 09:46 | PN ---
Progress Note - Progress Note Date of Service: 04/04/18 SOAP: Subjective: CC: weakness HPI: 88 yo man ESRD/PD with weakness and occasional loose stools. No pain or fever. Appetite ok. Formed stool yesterday Objective: Vital Signs Temp 37.3 C 04/04/18 07:43 Pulse 80 04/04/18 07:43 Resp 20 04/04/18 08:26 BP 119/44 04/04/18 07:43 Pulse Ox 98 04/04/18 07:43 Intake & Output 04/03/18 04/04/18 04/04/18 18:59 06:59 18:59 Intake Total 997 600 Output Total 200 250 Balance 797 350 Intake: IV Fluids 347 NS (0.9%) 347 IVPB 55 ABX - CEFTRIAXONE 55 Oral 595 600 Output: Urine 200 250 Other: Date of Last Bowel 0 Movement # Bowel Movements 1 0 # Voids 1 Gen:awake, no distress HEENT: no thrush Heart:RRR no murmur Lungs:CTA BL Abd:+BS NTND soft, PD catheter no erythema Skin: no rash MSK: no spine tenderness or joint synovitis Laboratory Results - last 24 hr 04/02/18 04/04/18 04/04/18 16:15 05:35 05:36 WBC 7.2 RBC 3.35 L Hgb 10.6 L Hct 32 L MCV 96 H MCH 32 H MCHC 33 RDW 15 Plt Count 136 L MPV 6.5 L Neut % (Auto) 81.5 Lymph % (Auto) 7.6 L [place] % (Auto) 10.4 H Eos % (Auto) 0.1 Baso % (Auto) 0.4 Absolute Neuts (auto) 5.9 Absolute Lymphs (auto) 0.5 L Absolute Monos (auto) 0.7 Absolute Eos (auto) 0 Absolute Basos (auto) 0 Absolute Nucleated RBC 0 Nucleated RBC % 0 Sodium 132 L Potassium 3.4 L Chloride 98 L Carbon Dioxide 25 Anion Gap 9 BUN 53 H Creatinine 4.18 H Est GFR ( Amer) 16.4 Est GFR (Non-Af Amer) 13.6 BUN/Creatinine Ratio 12.7 Glucose 73 Calcium 7.1 L Fluid Cell Count Rvw By Assessment: 1. Recent peritonitis, resolve; fluid culture negative 2. Diarrhea, w some episodes of formed stools argues against infectious causes, and negative Cdif; ?medication related or microscopic colitis 3. ESRD/PD 4. bronchiectasis Plan: 1. Will stop ceftriaxone and flagyl and follow symptoms 2. PT/OT Discussed with Virginia Acevedo NP
--- NOTE | 2018-04-04 10:38 | PN ---
Subjective Date of Service: 04/04/18 Interval History: Mr. Farah reports that he continues to feel weak but denies other complaint including chest pain, SOB, nausea, or abdominal pain. Objective Active Medications: Acetaminophen (Tylenol Tab*) 650 mg PO Q4H PRN Hydrocodone Bitart/Acetaminophen ([place] 5-325 Tab*) 1 tab PO Q6H PRN Albuterol (Ventolin 2.5 Mg/3 Ml Neb.Terri*) 2.5 mg INH Q2H PRN Allopurinol (Zyloprim Tab*) 100 mg PO DAILY [facility] Aspirin (Aspirin Ec Tab*) 81 mg PO DAILY [facility] Calcitriol (Rocaltrol Cap*) 0.25 mcg PO DAILY [facility] Clopidogrel Bisulfate (Plavix Tab*) 75 mg PO DAILY [facility] Dicyclomine HCl (Bentyl Cap*) 20 mg PO QID [facility] Famotidine (Pepcid Tab*) 20 mg PO DAILY [facility]; Protocol Fish Oil (Fish Oil (Nf)) 1,000 mg PO BID [facility] Heparin Sodium (Porcine) (Heparin Vial(*)) 5,000 units SUBCUT Q8HR [facility] Ceftriaxone Sodium 1 gm/ (Sodium Chloride) 50 mls @ 200 mls/hr IVPB Q24H [facility] Lactobacillus Rhamnosus (Lactobacillus Acidophilus*) 1 tab PO DAILY [facility] Lidocaine (Lidoderm 5% Patch*) 1 patch TRANSDERM DAILY [facility] Magnesium Oxide (Magox 400 Tab*) 400 mg PO BID [facility] Megestrol Acetate (Megestrol Susp*) 800 mg PO DAILY [facility] Metronidazole (Flagyl Tab*) 500 mg PO TID [facility] Mometasone Furoate/Formoterol Fumar (Dulera 200/5 Mdi*) 2 puff INH BID [facility] Multivitamins/Minerals (Theragran/Minerals Tab*) 1 tab PO DAILY [facility] Mupirocin (Bactroban 2 % Oint*) 1 applic TOPICAL DAILY [facility] Nebivolol (Bystolic Tab (Nf)) 10 mg PO DAILY [facility] Pantoprazole Sodium (Protonix Tab (Nf)) 40 mg PO BID [facility] Pharmacy Profile Note (Lidocaine Patch Remove*) 1 note N/A 2100 [facility] Rosuvastatin Calcium (Crestor (Nf)) 5 mg PO DAILY [facility]; Protocol Sodium Bicarbonate (Sodium Bicarbonate (Antacid)*) 650 mg PO DAILY [facility] Vital Signs: Temp Pulse Resp BP Pulse Ox 99.1 F 80 20 119/44 98 04/04/18 07:43 04/04/18 07:43 04/04/18 08:26 04/04/18 07:43 04/04/18 07:43 Oxygen Devices in Use Now: None Appearance: Male lying in bed in NAD Eyes: No Scleral Icterus Ears/Nose/Mouth/Throat: Mucous Membranes Moist Neck: Trachea Midline Respiratory: Symmetrical Chest Expansion and Respiratory Effort, Clear to Auscultation Cardiovascular: NL Sounds; No Murmurs; No JVD, No Edema Abdominal: NL Sounds; No Tenderness; No Distention Lymphatic: No Cervical Adenopathy Extremities: No Edema Skin: No Rash or Ulcers Neurological: Alert and Oriented x 3, NL Muscle Strength and Tone Nutrition: Taking PO's Result Diagrams: 04/04/18 05:36 04/04/18 05:35 Assess/Plan/Problems-Billing Assessment: Mr. Farah is an 88 y/o male with PMH of ESRD on PD with recent peritonitis, bronchiectasis who was admitted on 04/03/18 with weakness. - Patient Problems (1) Weakness Comment: - Etiology unclear but at this point appears to be deconditioning in setting of recent acute illness with multiple chronic co-morbidities. - Appreciate ID consult, no evidence of persistent periotoneal infection, abx discontinued. - PT OT following. Will need rehab. (2) ESRD on peritoneal dialysis Comment: - PD per nephro Dr mari following (3) Elevated troponin Comment: - Trop peaked at 0.19. No wall motion abnormalities on echo, EF intact. - Suspect demand ischemic in setting of ESRD. - Hx of CAD, continue aspirin, plavix and nebivolol. (4) Bronchiectasis Comment: - Stable, with COPD. - Continue dulera and nebs prn. - Follow up PCP and pulmonology. (5) Chronic back pain Comment: - Continue hydrocodone/apap with lidoderm patch. (6) Hypertension Comment: - SBP 110. - Hold amiloride. (7) Diarrhea Comment: - No diarrhea since arrival. - Aeromonas positive stool culture but asymptomatic. (8) DVT prophylaxis Comment: - Heparin sub-q (9) Full code status Comment: Status and Disposition: Inpatient. Anticipate need for [facility] vs [facility] placement.
[2018-04-04] MEDS: Lidocaine Patch REMOVE* 1 NOTE MISC SCH (21:45)
[2018-04-04] MEDS: HYDROcodone/ACETAMIN 5-325 MG* 1 TAB PO PRN (22:03)
[2018-04-05] MEDS: Heparin VIAL(*) 5000 UNITS/ML VIAL (FIVE THOUSAND) SUBCUT SCH ×3 (06:04→21:30)
--- NOTE | 2018-04-05 06:56 | PN ---
Subjective Date of Service: 04/05/18 Interval History: Mr. Farah continues to feel very weak and "wiped out." He reports some chronic low back pain for which he takes hydrocodone. He had a very small amount of liquid stool this AM. He denies nausea or abdominal pain and is tolerating oral intake well. He denies chest pain or SOB. Objective Active Medications: Acetaminophen (Tylenol Tab*) 650 mg PO Q4H PRN Hydrocodone Bitart/Acetaminophen ([place] 5-325 Tab*) 1 tab PO Q6H PRN Albuterol (Ventolin 2.5 Mg/3 Ml Neb.Terri*) 2.5 mg INH Q2H PRN Allopurinol (Zyloprim Tab*) 100 mg PO DAILY [facility] Aspirin (Aspirin Ec Tab*) 81 mg PO DAILY [facility] Calcitriol (Rocaltrol Cap*) 0.25 mcg PO DAILY [facility] Clopidogrel Bisulfate (Plavix Tab*) 75 mg PO DAILY [facility] Dicyclomine HCl (Bentyl Cap*) 20 mg PO QID [facility] Famotidine (Pepcid Tab*) 20 mg PO DAILY [facility]; Protocol Fish Oil (Fish Oil (Nf)) 1,000 mg PO BID [facility] Heparin Sodium (Porcine) (Heparin Vial(*)) 5,000 units SUBCUT Q8HR [facility] Lactobacillus Rhamnosus (Lactobacillus Acidophilus*) 1 tab PO DAILY [facility] Lidocaine (Lidoderm 5% Patch*) 1 patch TRANSDERM DAILY [facility] Magnesium Oxide (Magox 400 Tab*) 400 mg PO BID [facility] Megestrol Acetate (Megestrol Susp*) 800 mg PO DAILY [facility] Mometasone Furoate/Formoterol Fumar (Dulera 200/5 Mdi*) 2 puff INH BID [facility] Multivitamins/Minerals (Theragran/Minerals Tab*) 1 tab PO DAILY [facility] Mupirocin (Bactroban 2 % Oint*) 1 applic TOPICAL DAILY [facility] Nebivolol (Bystolic Tab (Nf)) 10 mg PO DAILY [facility] Pantoprazole Sodium (Protonix Tab (Nf)) 40 mg PO BID [facility] Pharmacy Profile Note (Lidocaine Patch Remove*) 1 note N/A 2100 [facility] Rosuvastatin Calcium (Crestor (Nf)) 5 mg PO DAILY [facility]; Protocol Sodium Bicarbonate (Sodium Bicarbonate (Antacid)*) 650 mg PO DAILY [facility] Vital Signs: Temp Pulse Resp BP Pulse Ox 98.1 F 68 18 137/28 98 04/05/18 07:23 04/05/18 07:53 04/05/18 11:07 04/05/18 07:23 04/05/18 07:53 Oxygen Devices in Use Now: None Appearance: Cachectic male lying in bed in NAD Eyes: No Scleral Icterus Ears/Nose/Mouth/Throat: NL Teeth, Lips, Gums Neck: Trachea Midline Respiratory: Symmetrical Chest Expansion and Respiratory Effort, Clear to Auscultation Cardiovascular: NL Sounds; No Murmurs; No JVD, No Edema Abdominal: NL Sounds; No Tenderness; No Distention Extremities: No Edema Skin: No Rash or Ulcers Neurological: Alert and Oriented x 3, - - Generalized weakness Nutrition: Taking PO's Result Diagrams: 04/04/18 05:36 04/04/18 05:35 Assess/Plan/Problems-Billing Assessment: Mr. Farah is an 88 y/o male with PMH of ESRD on PD with recent peritonitis, bronchiectasis who was admitted on 04/03/18 with weakness. - Patient Problems (1) Weakness Comment: - Etiology unclear but at this point appears to be deconditioning in setting of recent acute illness with multiple chronic co-morbidities. - Appreciate ID consult, no evidence of persistent periotoneal infection, abx discontinued. - PT OT following. Will need rehab. (2) ESRD on peritoneal dialysis Comment: - PD per nephrology team. (3) Elevated troponin Comment: - Trop peaked at 0.19. No wall motion abnormalities on echo, EF intact. - Suspect demand ischemic in setting of ESRD. - Hx of CAD, continue aspirin, plavix and nebivolol. (4) Bronchiectasis Comment: - Stable, with COPD. - Continue dulera and nebs prn. - Follow up PCP and pulmonology. (5) Chronic back pain Comment: - Continue hydrocodone/apap with lidoderm patch. (6) Hypertension Comment: - SBP 90-130s. - Hold amiloride. (7) Diarrhea Comment: - Report of only one stool. - Aeromonas positive stool culture but asymptomatic. Will monitor closely. (8) DVT prophylaxis Comment: - Heparin sub-q (9) Full code status Comment: Status and Disposition: Inpatient. Anticipate need for [facility] vs [facility] placement.
[2018-04-05] MEDS: Mometasone/Formoter 200/5 MDI INH SCH ×2 (07:50→19:43)
[2018-04-05] MEDS ORDERED: Loperamide CAP* 2 MG PO PRN (10:51)
[2018-04-05] MEDS: Megestrol SUSP* 400 MG/10 ML UDC PO SCH (11:06)
[2018-04-05] MEDS: HYDROcodone/ACETAMIN 5-325 MG* 1 TAB PO PRN ×2 (11:07→23:48)
[2018-04-05] MEDS: Dicyclomine CAP* 10 MG PO SCH ×4 (11:07→20:48)
[2018-04-05] MEDS: Lactobacillus Acidophilus* 1 TAB PO SCH (11:08)
[2018-04-05] MEDS: Lidocaine PATCH 5%* 1 PATCH TRANSDERM SCH (11:14)
[2018-04-05] MEDS: Clopidogrel TAB* 75 MG PO SCH (11:16)
[2018-04-05] MEDS: Aspirin EC TAB* 81 MG TAB.EC PO SCH (11:16)
[2018-04-05] MEDS: Magnesium Oxide TAB* 400 MG PO SCH ×2 (11:16→20:50)
[2018-04-05] MEDS: Allopurinol TAB* 100 MG PO SCH (11:16)
[2018-04-05] MEDS: Famotidine TAB* 20 MG PO SCH (11:16)
[2018-04-05] MEDS: Calcitriol CAP* 0.25 MCG PO SCH (11:16)
[2018-04-05] MEDS: CMC:Pantoprazole TAB (NF) 40 MG TAB PO SCH ×2 (11:17→20:49)
[2018-04-05] MEDS: Sodium Bicarbonate (ANTACID)* 650 MG TAB PO SCH (11:17)
[2018-04-05] MEDS: Multivitamins/Minerals TAB PO SCH (11:17)
[2018-04-05] MEDS: NEBIVOLOL 2.5 MG PO SCH (11:17)
[2018-04-05] MEDS: CMC:Rosuvastatin (NF) 5 MG TAB PO SCH (11:17)
[2018-04-05] MEDS: Mupirocin 2% OINT* TUBE TOPICAL SCH (11:17)
[2018-04-05] MEDS: CMCS: OMEGA-3 FATTY ACIDS (NF) 1,000 MG CAP PO SCH ×2 (11:17→20:53)
[2018-04-05] MEDS: Lidocaine Patch REMOVE* 1 NOTE MISC SCH (20:47)
[2018-04-06] MEDS: Heparin VIAL(*) 5000 UNITS/ML VIAL (FIVE THOUSAND) SUBCUT SCH ×3 (05:37→21:30)
[2018-04-06 06:03] LABS: ABS Basophils 0 10^3/ul (0-0.2); ABS Eosinophils 0 10^3/ul (0-0.6); ABS Lymphocytes 0.8 10^3/ul (1.0-4.8); ABS Monocytes 0.7 10^3/ul (0-0.8); ABS Nucleated RBC 0 10^3/ul; Eosinophil % 0.1 % (0-6); Hematocrit 31 % (42-52); Hemoglobin 10.1 g/dl (14.0-18.0); Lymphocyte % 10.4 % (25-47); Mean Corpuscular HGB Conc 33 g/dl (31-36); Mean Corpuscular Hemoglobin 32 pg (27-31); Mean Corpuscular Volume 96 fL (80-94); Mean Platelet Volume 6.9 um3 (7.4-10.4); Nucleated Red Blood Cells % 0; Platelet Count 118 10^3/ul (150-450); Red Blood Count 3.19 10^6/ul (4.00-5.40); Red Cell Distribution Width 15 % (10.5-15); White Blood Count 7.5 10^3/ul (3.5-10.8)
[2018-04-06 06:22] LABS: EGFR Non-African American 16.5 (>60)
--- NOTE | 2018-04-06 08:22 | PN ---
Subjective Date of Service: 04/06/18 Interval History: Mr. Farah states that he is feeling pretty well. He denies any specific complaint but reports that he just feels weak and tired. He specifically denies chest pain, SOB, cough, nausea, abdominal pain or diarrhea. Objective Active Medications: Acetaminophen (Tylenol Tab*) 650 mg PO Q4H PRN Hydrocodone Bitart/Acetaminophen ([place] 5-325 Tab*) 1 tab PO Q6H PRN Albuterol (Ventolin 2.5 Mg/3 Ml Neb.Terri*) 2.5 mg INH Q2H PRN Allopurinol (Zyloprim Tab*) 100 mg PO DAILY [facility] Aspirin (Aspirin Ec Tab*) 81 mg PO DAILY [facility] Calcitriol (Rocaltrol Cap*) 0.25 mcg PO DAILY [facility] Clopidogrel Bisulfate (Plavix Tab*) 75 mg PO DAILY [facility] Dicyclomine HCl (Bentyl Cap*) 20 mg PO QID [facility] Famotidine (Pepcid Tab*) 20 mg PO DAILY [facility]; Protocol Fish Oil (Fish Oil (Nf)) 1,000 mg PO BID [facility] Heparin Sodium (Porcine) (Heparin Vial(*)) 5,000 units SUBCUT Q8HR [facility] Lactobacillus Rhamnosus (Lactobacillus Acidophilus*) 1 tab PO DAILY [facility] Lidocaine (Lidoderm 5% Patch*) 1 patch TRANSDERM DAILY [facility] Loperamide HCl (Imodium Cap*) 2 mg PO .SEE DIRECTIONS PRN Magnesium Oxide (Magox 400 Tab*) 400 mg PO BID [facility] Megestrol Acetate (Megestrol Susp*) 800 mg PO DAILY [facility] Mometasone Furoate/Formoterol Fumar (Dulera 200/5 Mdi*) 2 puff INH BID [facility] Multivitamins/Minerals (Theragran/Minerals Tab*) 1 tab PO DAILY [facility] Mupirocin (Bactroban 2 % Oint*) 1 applic TOPICAL DAILY [facility] Nebivolol (Bystolic Tab (Nf)) 10 mg PO DAILY [facility] Pantoprazole Sodium (Protonix Tab (Nf)) 40 mg PO BID [facility] Pharmacy Profile Note (Lidocaine Patch Remove*) 1 note N/A 2100 [facility] Rosuvastatin Calcium (Crestor (Nf)) 5 mg PO DAILY [facility]; Protocol Sodium Bicarbonate (Sodium Bicarbonate (Antacid)*) 650 mg PO DAILY [facility] Vital Signs: Temp Pulse Resp BP Pulse Ox 98.4 F 82 20 102/40 98 04/06/18 03:13 04/06/18 03:13 04/06/18 03:13 04/06/18 03:13 04/06/18 03:31 Oxygen Devices in Use Now: None Appearance: Male sitting up eating lunch in NAD Eyes: No Scleral Icterus Ears/Nose/Mouth/Throat: Mucous Membranes Moist Neck: Trachea Midline Respiratory: Symmetrical Chest Expansion and Respiratory Effort, Clear to Auscultation Cardiovascular: NL Sounds; No Murmurs; No JVD, No Edema Abdominal: NL Sounds; No Tenderness; No Distention Extremities: No Edema Skin: No Rash or Ulcers Neurological: Alert and Oriented x 3, NL Muscle Strength and Tone Nutrition: Taking PO's Result Diagrams: 04/06/18 05:23 04/06/18 05:23 Assess/Plan/Problems-Billing Assessment: Mr. Farah is an 88 y/o male with PMH of ESRD on PD with recent peritonitis, bronchiectasis who was admitted on 04/03/18 with weakness. - Patient Problems (1) Weakness Comment: - Etiology unclear but at this point appears to be deconditioning in setting of recent acute illness with multiple chronic co-morbidities. - Appreciate ID consult, no evidence of persistent periotoneal infection, abx discontinued. - PT OT following. Will need rehab. (2) ESRD on peritoneal dialysis Comment: - PD per nephrology team. (3) Elevated troponin Comment: - Trop peaked at 0.19. No wall motion abnormalities on echo, EF intact. - Suspect demand ischemic in setting of ESRD. - Hx of CAD, continue aspirin, plavix and nebivolol. (4) Bronchiectasis Comment: - Stable, with COPD. - Continue dulera and nebs prn. - Follow up PCP and pulmonology. (5) Chronic back pain Comment: - Continue hydrocodone/apap with lidoderm patch. (6) Hypertension Comment: - SBP 90-130s. - Hold amiloride. (7) Diarrhea Comment: - Only one BM per day noted thus far. - Aeromonas and VRE positive stool culture but asymptomatic. Will monitor closely. (8) Positive culture findings in sputum Comment: - Achromobacter noted on sputum. - Chest xray negative for infiltrate, WBC normal, no fever, no cough. - No indication of pneumonia, in indication for abx at this time. (9) DVT prophylaxis Comment: - Heparin sub-q (10) Full code status Comment: Status and Disposition: Inpatient. Anticipate need for [facility] vs [facility] placement.
[2018-04-06] MEDS: Mometasone/Formoter 200/5 MDI INH SCH ×2 (08:43→19:45)
[2018-04-06] MEDS: Megestrol SUSP* 400 MG/10 ML UDC PO SCH (11:26)
[2018-04-06] MEDS: Lidocaine PATCH 5%* 1 PATCH TRANSDERM SCH (11:26)
[2018-04-06] MEDS: Multivitamins/Minerals TAB PO SCH (11:27)
[2018-04-06] MEDS: Calcitriol CAP* 0.25 MCG PO SCH (11:27)
[2018-04-06] MEDS: Aspirin EC TAB* 81 MG TAB.EC PO SCH (11:27)
[2018-04-06] MEDS: CMC:Rosuvastatin (NF) 5 MG TAB PO SCH (11:27)
[2018-04-06] MEDS: Clopidogrel TAB* 75 MG PO SCH (11:27)
[2018-04-06] MEDS: Famotidine TAB* 20 MG PO SCH (11:27)
[2018-04-06] MEDS: Lactobacillus Acidophilus* 1 TAB PO SCH (11:27)
[2018-04-06] MEDS: Magnesium Oxide TAB* 400 MG PO SCH ×2 (11:27→20:45)
[2018-04-06] MEDS: CMC:Pantoprazole TAB (NF) 40 MG TAB PO SCH ×2 (11:28→20:45)
[2018-04-06] MEDS: Dicyclomine CAP* 10 MG PO SCH ×4 (11:28→20:45)
[2018-04-06] MEDS: CMCS: OMEGA-3 FATTY ACIDS (NF) 1,000 MG CAP PO SCH ×3 (11:28→20:50)
[2018-04-06] MEDS: Sodium Bicarbonate (ANTACID)* 650 MG TAB PO SCH (11:28)
[2018-04-06] MEDS: Allopurinol TAB* 100 MG PO SCH (11:28)
[2018-04-06] MEDS: Mupirocin 2% OINT* TUBE TOPICAL SCH (11:29)
[2018-04-06] MEDS: NEBIVOLOL 2.5 MG PO SCH (11:29)
[2018-04-06] MEDS: Lidocaine Patch REMOVE* 1 NOTE MISC SCH (20:45)
[2018-04-07] MEDS: Heparin VIAL(*) 5000 UNITS/ML VIAL (FIVE THOUSAND) SUBCUT SCH ×3 (05:40→22:09)
[2018-04-07] MEDS: Mometasone/Formoter 200/5 MDI INH SCH (07:27)
[2018-04-07] MEDS ORDERED: Potassium Chlor TAB* 20 MEQ TAB.ER PO ONE (08:26)
[2018-04-07] MEDS: Sodium Bicarbonate (ANTACID)* 650 MG TAB PO SCH (09:24)
[2018-04-07] MEDS: CMC:Rosuvastatin (NF) 5 MG TAB PO SCH (09:24)
[2018-04-07] MEDS: Multivitamins/Minerals TAB PO SCH (09:25)
[2018-04-07] MEDS: Allopurinol TAB* 100 MG PO SCH (09:25)
[2018-04-07] MEDS: Aspirin EC TAB* 81 MG TAB.EC PO SCH (09:25)
[2018-04-07] MEDS: CMC:Pantoprazole TAB (NF) 40 MG TAB PO SCH ×2 (09:25→20:44)
[2018-04-07] MEDS: Magnesium Oxide TAB* 400 MG PO SCH ×2 (09:25→20:44)
[2018-04-07] MEDS: Famotidine TAB* 20 MG PO SCH (09:25)
[2018-04-07] MEDS: Lactobacillus Acidophilus* 1 TAB PO SCH (09:25)
[2018-04-07] MEDS: Calcitriol CAP* 0.25 MCG PO SCH (09:25)
[2018-04-07] MEDS: Clopidogrel TAB* 75 MG PO SCH (09:25)
[2018-04-07] MEDS: Lidocaine PATCH 5%* 1 PATCH TRANSDERM SCH (09:26)
[2018-04-07] MEDS: Megestrol SUSP* 400 MG/10 ML UDC PO SCH (09:26)
[2018-04-07] MEDS: CMCS: OMEGA-3 FATTY ACIDS (NF) 1,000 MG CAP PO SCH ×3 (09:33→20:47)
[2018-04-07] MEDS: NEBIVOLOL 2.5 MG PO SCH (09:44)
[2018-04-07] MEDS: CMC:Lactase Enzyme (NF) 3,000 UNIT TAB PO PRN ×2 (10:45→20:41)
[2018-04-07] MEDS: Mupirocin 2% OINT* TUBE TOPICAL SCH (10:46)
--- NOTE | 2018-04-07 11:08 | PN ---
Subjective Date of Service: 04/07/18 Interval History: Patient seen and examined. No complaints this AM, however, per , he seems very weak to her. Also has loose cough today and had some coughing when trying to take potassium this AM. No fever or chills, no chest pain, no SOB. Objective Active Medications: Acetaminophen (Tylenol Tab*) 650 mg PO Q4H PRN PRN Reason: FEVER/PAIN Hydrocodone Bitart/Acetaminophen ([place] 5-325 Tab*) 1 tab PO Q6H PRN PRN Reason: PAIN Last Admin: 04/05/18 23:48 Dose: 1 tab Albuterol (Ventolin 2.5 Mg/3 Ml Neb.Terri*) 2.5 mg INH Q2H PRN PRN Reason: SOB/WHEEZING Allopurinol (Zyloprim Tab*) 100 mg PO DAILY [facility] Last Admin: 04/07/18 09:25 Dose: 100 mg Aspirin (Aspirin Ec Tab*) 81 mg PO DAILY [facility] Last Admin: 04/07/18 09:25 Dose: 81 mg Calcitriol (Rocaltrol Cap*) 0.25 mcg PO DAILY [facility] Last Admin: 04/07/18 09:25 Dose: 0.25 mcg Clopidogrel Bisulfate (Plavix Tab*) 75 mg PO DAILY [facility] Last Admin: 04/07/18 09:25 Dose: 75 mg Famotidine (Pepcid Tab*) 20 mg PO DAILY [facility]; Protocol Last Admin: 04/07/18 09:25 Dose: 20 mg Fish Oil (Fish Oil (Nf)) 1,000 mg PO BID [facility] Last Admin: 04/07/18 09:43 Dose: Not Given Heparin Sodium (Porcine) (Heparin Vial(*)) 5,000 units SUBCUT Q8HR [facility] Last Admin: 04/07/18 05:40 Dose: 5,000 units Lactase (Lactaid Fast Act (Nf)) 3,000 unit PO TID WITH MEALS PRN; Protocol PRN Reason: DYSPEPSIA Last Admin: 04/07/18 10:45 Dose: 3,000 unit Lactobacillus Rhamnosus (Lactobacillus Acidophilus*) 1 tab PO DAILY [facility] Last Admin: 04/07/18 09:25 Dose: 1 tab Lidocaine (Lidoderm 5% Patch*) 1 patch TRANSDERM DAILY [facility] Last Admin: 04/07/18 09:26 Dose: 1 patch Loperamide HCl (Imodium Cap*) 2 mg PO .SEE DIRECTIONS PRN PRN Reason: DIARRHEA Last Admin: 04/06/18 11:36 Dose: 2 mg Magnesium Oxide (Magox 400 Tab*) 400 mg PO BID [facility] Last Admin: 04/07/18 09:25 Dose: 400 mg Megestrol Acetate (Megestrol Susp*) 800 mg PO DAILY [facility] Last Admin: 04/07/18 09:26 Dose: 800 mg Mometasone Furoate/Formoterol Fumar (Dulera 200/5 Mdi*) 2 puff INH BID [facility] Last Admin: 04/07/18 07:27 Dose: 2 puff Multivitamins/Minerals (Theragran/Minerals Tab*) 1 tab PO DAILY [facility] Last Admin: 04/07/18 09:25 Dose: 1 tab Mupirocin (Bactroban 2 % Oint*) 1 applic TOPICAL DAILY [facility] Last Admin: 04/07/18 10:46 Dose: 1 applic Nebivolol (Bystolic Tab (Nf)) 10 mg PO DAILY [facility] Last Admin: 04/07/18 09:44 Dose: Not Given Pantoprazole Sodium (Protonix Tab (Nf)) 40 mg PO BID [facility] Last Admin: 04/07/18 09:25 Dose: 40 mg Pharmacy Profile Note (Lidocaine Patch Remove*) 1 note N/A 2100 [facility] Last Admin: 04/06/18 20:45 Dose: 1 note Rosuvastatin Calcium (Crestor (Nf)) 5 mg PO DAILY [facility]; Protocol Last Admin: 04/07/18 09:24 Dose: 5 mg Sodium Bicarbonate (Sodium Bicarbonate (Antacid)*) 650 mg PO DAILY [facility] Last Admin: 04/07/18 09:24 Dose: 650 mg Vital Signs - 8 hr 04/07/18 04/07/18 04/07/18 03:24 07:30 08:00 Temperature 98.6 F Pulse Rate 83 88 Respiratory 18 14 20 Rate Blood Pressure 111/42 (mmHg) O2 Sat by Pulse 98 92 Oximetry 04/07/18 08:04 Temperature 98.8 F Pulse Rate 51 Respiratory 20 Rate Blood Pressure 96/31 (mmHg) O2 Sat by Pulse 94 Oximetry Oxygen Devices in Use Now: None Appearance: Alert, NAD, appears fatigued Eyes: PERRLA Ears/Nose/Mouth/Throat: Clear Oropharnyx, Mucous Membranes Moist Neck: NL Appearance and Movements; NL JVP, Trachea Midline Respiratory: Symmetrical Chest Expansion and Respiratory Effort, - - course rhonchi throughout lung [place] Cardiovascular: No Edema, - - irregular, SR, mild tachy 97-105 on tele Abdominal: NL Sounds; No Tenderness; No Distention Extremities: No Edema Skin: No Rash or Ulcers Neurological: NL Sensation, - - A&Ox2, general weakness Nutrition: Taking PO's, - - may need diet mod Result Diagrams: 04/06/18 05:23 04/06/18 05:23 Microbiology and Other Data: Microbiology 04/03/18 03:15 Stool Gross Appearance - Final Stool C. difficile DNA Amplification - Final 027 Presumptive NEGATIVE Toxigenic C.diff NEGATIVE Stool Lactoferrin - Final Rotavirus Antigen - Final Negative Rotavirus 04/02/18 07:45 Aerobic Blood Culture - Preliminary Blood Venous No Growth Day 1 Anaerobic Blood Culture - Preliminary No Growth Day 1 04/02/18 07:45 Aerobic Blood Culture - Preliminary Blood Venous No Growth Day 1 Anaerobic Blood Culture - Preliminary No Growth Day 1 04/02/18 16:15 Gram Stain - Final Body Fluid - Peritoneal 04/02/18 07:45 Legionella Urinary Antigen - Final Urine Negative Legionella Antigen Streptococcus pneumoniae Ag Screen - Final Negative S. pneumo Antigen Assess/Plan/Problems-Billing Assessment: This is an 88 y/o male with PMH of ESRD on PD with recent peritonitis, bronchiectasis who was admitted on 04/03/18 with weakness and diarrhea. - Patient Problems (1) Weakness Code(s): R53.1 - WEAKNESS SNOMED Code(s): 59063161 Comment: - Multifactorial, infection, aspiration, lumbar stenosis, ESRD (no peritonitis now) likely all contributing to his continued deconditioning - PT/ OT - Will need STR and transtition to LTC (2) Bronchiectasis Code(s): J47.9 - BRONCHIECTASIS, UNCOMPLICATED SNOMED Code(s): 23146679 Comment: - Concern today, sounds very rhonchorous, may be in exac vs aspiration - Pulmonary toilet - CXR now - Continue nebs and dulera (3) CAD (coronary artery disease) Code(s): I25.10 - ATHSCL HEART DISEASE OF [place] CORONARY ARTERY W/O ANG PCTRS SNOMED Code(s): 23905243 Comment: - Asymptomatic. - Continue asa, plavix, and nebivolol (4) COPD (chronic obstructive pulmonary disease) Code(s): J44.9 - CHRONIC OBSTRUCTIVE PULMONARY DISEASE, UNSPECIFIED SNOMED Code(s): 51365382 Comment: - Concern for eraly exacerbation - Follow CXR and continue home meds (5) Chronic back pain Code(s): M54.9 - DORSALGIA, UNSPECIFIED; G89.29 - OTHER CHRONIC PAIN SNOMED Code(s): 109171303 Comment: - Continue hydrocodone/apap with lidoderm patches daily - Per , has hx of lumbar stenosis (6) Diarrhea Code(s): R19.7 - DIARRHEA, UNSPECIFIED SNOMED Code(s): 21401593 Comment: - Requested RN to note stool consistency today given aeromonas and VRE positive stool culture - If diarrhea persists, will restart atbx (7) ESRD on peritoneal dialysis Code(s): N18.6 - END STAGE RENAL DISEASE; Z99.2 - DEPENDENCE ON RENAL DIALYSIS SNOMED Code(s): 08353059 Comment: - PD per nephrology team - mentioned possibility for HD, as he has a mature fistula, will defer to Dr. Ward for recommendations (8) Hypertension Code(s): I10 - ESSENTIAL (PRIMARY) HYPERTENSION SNOMED Code(s): 12916458 Comment: - Mild hypotension - Hold BP meds for now (9) Dysphagia Code(s): R13.10 - DYSPHAGIA, UNSPECIFIED SNOMED Code(s): 56572264 Comment: - Had aspiration PNA in March - Concern that he is continuing to aspirate based on presentation today - Follow CXR and reconsult speech (10) DVT prophylaxis Code(s): BLT9629 - SNOMED Code(s): 049097815 Comment: - HSQ (11) Full code status Code(s): Z78.9 - OTHER SPECIFIED HEALTH STATUS SNOMED Code(s): 232747144 Comment: Status and Disposition: Inpatient. Anticipate need for STR and transition to LTC
--- NOTE | 2018-04-07 11:28 | RAD ---
INDICATION: Cough COMPARISON: Chest x-ray April 02, 2018 TECHNIQUE: Single AP portable view of the chest was obtained. FINDINGS: Image quality is compromised due to the relative inferiority of a portable chest x-ray. The heart and mediastinum exhibit normal size and contour. Again seen is apparent elevation of the right hemidiaphragm. There is interval development of linear density at the right lung base morphologically most consistent with atelectasis. Otherwise the lungs are grossly clear. There is no evidence of a large pleural effusion. Visualized bones are normal for the patient's age. IMPRESSION: Persistent elevation of the right hemidiaphragm with likely atelectasis at the right lung base.
[2018-04-07] MEDS: Sulfamethox/Trimethoprim SS 400/80* TAB PO SCH ×2 (13:57→20:41)
[2018-04-07] MEDS: HYDROcodone/ACETAMIN 5-325 MG* 1 TAB PO PRN ×2 (14:05→20:41)
[2018-04-07] MEDS: guaiFENesin ER TAB 600 MG PO SCH (20:43)
[2018-04-07] MEDS: Lidocaine Patch REMOVE* 1 NOTE MISC SCH (20:54)
[2018-04-08] MEDS: Heparin VIAL(*) 5000 UNITS/ML VIAL (FIVE THOUSAND) SUBCUT SCH ×3 (05:35→21:22)
[2018-04-08] MEDS: Mometasone/Formoter 200/5 MDI INH SCH ×3 (06:56→19:11)
[2018-04-08] MEDS: Megestrol SUSP* 400 MG/10 ML UDC PO SCH (09:44)
[2018-04-08] MEDS: Allopurinol TAB* 100 MG PO SCH (09:45)
[2018-04-08] MEDS: Sodium Bicarbonate (ANTACID)* 650 MG TAB PO SCH (09:45)
[2018-04-08] MEDS: guaiFENesin ER TAB 600 MG PO SCH ×2 (09:46→20:13)
[2018-04-08] MEDS: Magnesium Oxide TAB* 400 MG PO SCH ×2 (09:46→20:14)
[2018-04-08] MEDS: Clopidogrel TAB* 75 MG PO SCH (09:47)
[2018-04-08] MEDS: Lactobacillus Acidophilus* 1 TAB PO SCH (09:47)
[2018-04-08] MEDS: Famotidine TAB* 20 MG PO SCH (09:48)
[2018-04-08] MEDS: Multivitamins/Minerals TAB PO SCH (09:49)
[2018-04-08] MEDS: Aspirin EC TAB* 81 MG TAB.EC PO SCH (09:49)
[2018-04-08] MEDS: CMC:Pantoprazole TAB (NF) 40 MG TAB PO SCH ×2 (09:50→20:14)
[2018-04-08] MEDS: CMC:Rosuvastatin (NF) 5 MG TAB PO SCH (09:50)
[2018-04-08] MEDS: Sulfamethox/Trimethoprim SS 400/80* TAB PO SCH ×2 (09:50→20:14)
[2018-04-08] MEDS: NEBIVOLOL 2.5 MG PO SCH (09:51)
[2018-04-08] MEDS: Lidocaine PATCH 5%* 1 PATCH TRANSDERM SCH (09:53)
[2018-04-08] MEDS: CMCS: OMEGA-3 FATTY ACIDS (NF) 1,000 MG CAP PO SCH ×2 (09:54→20:14)
[2018-04-08] MEDS: Calcitriol CAP* 0.25 MCG PO SCH (09:54)
[2018-04-08] MEDS: Mupirocin 2% OINT* TUBE TOPICAL SCH (09:54)
--- NOTE | 2018-04-08 12:35 | PN ---
Subjective Date of Service: 04/08/18 Interval History: Patient seen and examined. Feeling better today. Cough is improved, no chest pain, no SOB, taking PO's with assistance. Objective Active Medications: Acetaminophen (Tylenol Tab*) 650 mg PO Q4H PRN PRN Reason: FEVER/PAIN Hydrocodone Bitart/Acetaminophen ([place] 5-325 Tab*) 1 tab PO Q4H PRN PRN Reason: PAIN Last Admin: 04/07/18 20:41 Dose: 1 tab Albuterol (Ventolin 2.5 Mg/3 Ml Neb.Terri*) 2.5 mg INH Q2H PRN PRN Reason: SOB/WHEEZING Allopurinol (Zyloprim Tab*) 100 mg PO DAILY [facility] Last Admin: 04/08/18 09:45 Dose: 100 mg Aspirin (Aspirin Ec Tab*) 81 mg PO DAILY [facility] Last Admin: 04/08/18 09:49 Dose: 81 mg Calcitriol (Rocaltrol Cap*) 0.25 mcg PO DAILY [facility] Last Admin: 04/08/18 09:54 Dose: 0.25 mcg Clopidogrel Bisulfate (Plavix Tab*) 75 mg PO DAILY [facility] Last Admin: 04/08/18 09:47 Dose: 75 mg Famotidine (Pepcid Tab*) 20 mg PO DAILY [facility]; Protocol Last Admin: 04/08/18 09:48 Dose: 20 mg Fish Oil (Fish Oil (Nf)) 1,000 mg PO BID [facility] Last Admin: 04/08/18 09:54 Dose: Not Given Guaifenesin (Mucinex*) 600 mg PO BID [facility] Last Admin: 04/08/18 09:46 Dose: 600 mg Heparin Sodium (Porcine) (Heparin Vial(*)) 5,000 units SUBCUT Q8HR [facility] Last Admin: 04/08/18 05:35 Dose: 5,000 units Lactase (Lactaid Fast Act (Nf)) 3,000 unit PO TID WITH MEALS PRN; Protocol PRN Reason: DYSPEPSIA Last Admin: 04/07/18 20:41 Dose: 3,000 unit Lactobacillus Rhamnosus (Lactobacillus Acidophilus*) 1 tab PO DAILY [facility] Last Admin: 04/08/18 09:47 Dose: 1 tab Lidocaine (Lidoderm 5% Patch*) 1 patch TRANSDERM DAILY [facility] Last Admin: 04/08/18 09:53 Dose: Not Given Loperamide HCl (Imodium Cap*) 2 mg PO .SEE DIRECTIONS PRN PRN Reason: DIARRHEA Last Admin: 04/06/18 11:36 Dose: 2 mg Magnesium Oxide (Magox 400 Tab*) 400 mg PO BID [facility] Last Admin: 04/08/18 09:46 Dose: 400 mg Megestrol Acetate (Megestrol Susp*) 800 mg PO DAILY [facility] Last Admin: 04/08/18 09:44 Dose: 800 mg Mometasone Furoate/Formoterol Fumar (Dulera 200/5 Mdi*) 2 puff INH BID [facility] Last Admin: 04/08/18 08:36 Dose: 2 puff Multivitamins/Minerals (Theragran/Minerals Tab*) 1 tab PO DAILY [facility] Last Admin: 04/08/18 09:49 Dose: 1 tab Mupirocin (Bactroban 2 % Oint*) 1 applic TOPICAL DAILY [facility] Last Admin: 04/08/18 09:54 Dose: 1 applic Nebivolol (Bystolic Tab (Nf)) 10 mg PO DAILY [facility] Last Admin: 04/08/18 09:51 Dose: 10 mg Pantoprazole Sodium (Protonix Tab (Nf)) 40 mg PO BID [facility] Last Admin: 04/08/18 09:50 Dose: 40 mg Pharmacy Profile Note (Lidocaine Patch Remove*) 1 note N/A 2100 [facility] Last Admin: 04/07/18 20:54 Dose: 1 note Rosuvastatin Calcium (Crestor (Nf)) 5 mg PO DAILY [facility]; Protocol Last Admin: 04/08/18 09:50 Dose: 5 mg Sodium Bicarbonate (Sodium Bicarbonate (Antacid)*) 650 mg PO DAILY [facility] Last Admin: 04/08/18 09:45 Dose: 650 mg Trimethoprim/Sulfamethoxazole (Bactrim Ss 400/80 Tab*) 1 tab PO BID [facility] Last Admin: 04/08/18 09:50 Dose: 1 tab Vital Signs - 8 hr 04/08/18 04/08/18 04/08/18 07:29 08:00 08:37 Temperature 98.7 F Pulse Rate 78 75 Respiratory 12 16 16 Rate Blood Pressure 133/45 (mmHg) O2 Sat by Pulse 94 95 Oximetry Oxygen Devices in Use Now: None Appearance: Alert, NAD Eyes: No Scleral Icterus, PERRLA Ears/Nose/Mouth/Throat: Clear Oropharnyx, Mucous Membranes Moist Neck: NL Appearance and Movements; NL JVP, Trachea Midline Respiratory: Symmetrical Chest Expansion and Respiratory Effort, - - improved rhonchi, no wheeze Cardiovascular: No Edema, - - irregular, afib Abdominal: NL Sounds; No Tenderness; No Distention Extremities: No Edema, No Clubbing, Cyanosis Skin: No Rash or Ulcers Neurological: Alert and Oriented x 3 Nutrition: Taking PO's Result Diagrams: 04/06/18 05:23 04/06/18 05:23 Microbiology and Other Data: Microbiology 04/03/18 03:15 Stool Gross Appearance - Final Stool C. difficile DNA Amplification - Final 027 Presumptive NEGATIVE Toxigenic C.diff NEGATIVE Stool Lactoferrin - Final Rotavirus Antigen - Final Negative Rotavirus 04/02/18 07:45 Aerobic Blood Culture - Preliminary Blood Venous No Growth Day 1 Anaerobic Blood Culture - Preliminary No Growth Day 1 04/02/18 07:45 Aerobic Blood Culture - Preliminary Blood Venous No Growth Day 1 Anaerobic Blood Culture - Preliminary No Growth Day 1 04/02/18 16:15 Gram Stain - Final Body Fluid - Peritoneal 04/02/18 07:45 Legionella Urinary Antigen - Final Urine Negative Legionella Antigen Streptococcus pneumoniae Ag Screen - Final Negative S. pneumo Antigen Diagnostic Imaging: Patient Name: NATHANIEL AUGUST Medical Record#: [id number] Ordering Physician: Charlene Pacheco NP Acct.#: [id number] : 1930 Age: 88 Sex: M Location: [address] [place] [address] MEDICAL/TELEMETRY Exam Date: 04/07/18 110 ADM Status: ADM IN Order Information: CHEST AP PORTABLE Accession Number: [id number] CPT: 70761 INDICATION: Cough COMPARISON: Chest x-ray April 02, 2018 TECHNIQUE: Single AP portable view of the chest was obtained. FINDINGS: Image quality is compromised due to the relative inferiority of a portable chest x-ray. The heart and mediastinum exhibit normal size and contour. Again seen is apparent elevation of the right hemidiaphragm. There is interval development of linear density at the right lung base morphologically most consistent with atelectasis. Otherwise the lungs are grossly clear. There is no evidence of a large pleural effusion. Visualized bones are normal for the patient's age. IMPRESSION: Persistent elevation of the right hemidiaphragm with likely atelectasis at the right lung base. <Electronically signed by Damian Hernandez MD in [place]> 04/07/18 1125 Dictated By: Damian Hernandez MD Dictated Date/Time: 04/07/18 1125 Transcribed Date/Time: 04/07/18 1124 Copy to: Assess/Plan/Problems-Billing Assessment: This is an 88 y/o male with PMH of ESRD on PD with recent peritonitis, bronchiectasis who was admitted on 04/03/18 with weakness and diarrhea. - Patient Problems (1) Weakness Code(s): R53.1 - WEAKNESS SNOMED Code(s): 91541764 Comment: - Multifactorial, infection, aspiration, lumbar stenosis, ESRD (no peritonitis now) likely all contributing to his continued deconditioning - PT/ OT - Will need STR and transtition to LTC, patient opting to go on HD now so he can stay locally in the area and near his (2) Bronchiectasis Code(s): J47.9 - BRONCHIECTASIS, UNCOMPLICATED SNOMED Code(s): 55315957 Comment: - CXR as above, mild atelectasis, no consolidation - Pulmonary toilet - Continue nebs and dulera (3) CAD (coronary artery disease) Code(s): I25.10 - ATHSCL HEART DISEASE OF [place] CORONARY ARTERY W/O ANG PCTRS SNOMED Code(s): 02528173 Comment: - Asymptomatic. - Continue asa, plavix, and nebivolol (4) COPD (chronic obstructive pulmonary disease) Code(s): J44.9 - CHRONIC OBSTRUCTIVE PULMONARY DISEASE, UNSPECIFIED SNOMED Code(s): 88017236 Comment: - Improved from yesterday, CXR as above (5) Chronic back pain Code(s): M54.9 - DORSALGIA, UNSPECIFIED; G89.29 - OTHER CHRONIC PAIN SNOMED Code(s): 797150984 Comment: - Continue hydrocodone/apap with lidoderm patches daily - Per , has hx of lumbar stenosis (6) Diarrhea Code(s): R19.7 - DIARRHEA, UNSPECIFIED SNOMED Code(s): 27815817 Comment: - Continued diarrhea yesterday, placed on bactrim as per ID recommendations - Appears to be improving (7) ESRD on peritoneal dialysis Code(s): N18.6 - END STAGE RENAL DISEASE; Z99.2 - DEPENDENCE ON RENAL DIALYSIS SNOMED Code(s): 05401128 Comment: - Plan for radiologic eval of AV fistula today hemodialysis tomorrow as per nephrology (8) Hypertension Code(s): I10 - ESSENTIAL (PRIMARY) HYPERTENSION SNOMED Code(s): 20547897 Comment: - Mild hypotension - Hold BP meds for now (9) Dysphagia Code(s): R13.10 - DYSPHAGIA, UNSPECIFIED SNOMED Code(s): 35662326 Comment: - Had aspiration PNA in March - Per speech eval, seems to be reflux related rather than dysphagia - Recommend upright OOB for meals with observation to prevent further reflux - CXR as above (10) DVT prophylaxis Code(s): BYF1948 - SNOMED Code(s): 809224135 Comment: - HSQ (11) Full code status Code(s): Z78.9 - OTHER SPECIFIED HEALTH STATUS SNOMED Code(s): 101696866 Comment: Status and Disposition: Inpatient HD tomorrow then DC to STR when appropriate bed obtained.
--- NOTE | 2018-04-08 17:36 | RAD ---
Indication: Determine patency of hemodialysis fistula prior to care facility placement. Comparison: None. Technique: Duplex ultrasound with spectral analysis was used to study the fistula of the right upper extremity brachial artery to cephalic vein fistula. Report: A fistula is identified which extends from the brachial artery to the cephalic vein. Inflow artery and anastomosis: Peak systolic and end-diastolic arterial velocity just proximal to the anastomosis: 257 cm/s Peak systolic velocity at the anastomosis: 491cm/s Peak systolic proximal anastomosis velocity: 556cm/s. Proximal venous outflow: The cephalic vein outflow appears to be adequately patent. The flow velocity at the mid-level right proximal arm measures 153 cm/s. Approximately the level of the humeral head the flow velocity measures 113 cm/s. IMPRESSION: Sonographic examination indicates adequately patent right upper extremity brachial artery to cephalic vein hemodialysis fistula. Please correlate to flow adequacy during dialysis.
[2018-04-08] MEDS: CMC:Lactase Enzyme (NF) 3,000 UNIT TAB PO PRN (20:13)
[2018-04-08] MEDS: HYDROcodone/ACETAMIN 5-325 MG* 1 TAB PO PRN (20:13)
[2018-04-08] MEDS: Lidocaine Patch REMOVE* 1 NOTE MISC SCH (20:14)
[2018-04-09] MEDS: Heparin VIAL(*) 5000 UNITS/ML VIAL (FIVE THOUSAND) SUBCUT SCH ×2 (05:35→17:54)
[2018-04-09] MEDS: Mometasone/Formoter 200/5 MDI INH SCH ×2 (08:02→20:15)
[2018-04-09] MEDS: Megestrol SUSP* 400 MG/10 ML UDC PO SCH (10:07)
[2018-04-09] MEDS: Sodium Bicarbonate (ANTACID)* 650 MG TAB PO SCH (10:08)
[2018-04-09] MEDS: Lactobacillus Acidophilus* 1 TAB PO SCH (10:08)
[2018-04-09] MEDS: guaiFENesin ER TAB 600 MG PO SCH ×2 (10:09→22:14)
[2018-04-09] MEDS: Sulfamethox/Trimethoprim SS 400/80* TAB PO SCH (10:09)
[2018-04-09] MEDS: Multivitamins/Minerals TAB PO SCH (10:10)
[2018-04-09] MEDS: CMCS: OMEGA-3 FATTY ACIDS (NF) 1,000 MG CAP PO SCH ×2 (10:14→22:04)
[2018-04-09] MEDS: Mupirocin 2% OINT* TUBE TOPICAL SCH (10:14)
[2018-04-09] MEDS: Lidocaine PATCH 5%* 1 PATCH TRANSDERM SCH (10:14)
[2018-04-09] MEDS: Calcitriol CAP* 0.25 MCG PO SCH (10:15)
[2018-04-09] MEDS: Aspirin EC TAB* 81 MG TAB.EC PO SCH (10:15)
[2018-04-09] MEDS: Allopurinol TAB* 100 MG PO SCH (10:16)
[2018-04-09] MEDS: Famotidine TAB* 20 MG PO SCH (10:16)
[2018-04-09] MEDS: CMC:Lactase Enzyme (NF) 3,000 UNIT TAB PO PRN (10:16)
[2018-04-09] MEDS: Magnesium Oxide TAB* 400 MG PO SCH ×2 (10:17→22:14)
[2018-04-09] MEDS: Clopidogrel TAB* 75 MG PO SCH (10:19)
[2018-04-09] MEDS: NEBIVOLOL 2.5 MG PO SCH (10:24)
[2018-04-09] MEDS: CMC:Pantoprazole TAB (NF) 40 MG TAB PO SCH ×2 (10:24→22:14)
[2018-04-09] MEDS: CMC:Rosuvastatin (NF) 5 MG TAB PO SCH (10:26)
[2018-04-09] MEDS ORDERED: Lidocaine 2.5%/Prilocain 2.5%* 5 GM TUBE TOPICAL PRN (10:40)
[2018-04-09] MEDS ORDERED: Acetaminophen ADULT LIQ* 650 MG/20.3 ML UDC PO PRN (10:53)
[2018-04-09] MEDS ORDERED: Heparin DIALYSIS ONLY(*) 1,000 UNITS/ML VIAL DIALYSIS ONE (15:00)
[2018-04-09] MEDS: HYDROcodone/ACETAMIN 5-325 MG* 1 TAB PO PRN ×2 (16:17→22:14)
--- NOTE | 2018-04-09 17:10 | PN ---
Subjective Date of Service: 04/09/18 Interval History: Patient seen and examined in hemodialysis, per RN, patient's access infiltrated when he moved his arm and the venous access bleed into the insertion site resulting in hematoma. Upo arrival, patient states he is having no pain at the site, pressure dressing has been applied. He denies any SOB, no chest pain. Up to this point he had been tolerating the dialysis well. Objective Active Medications: Acetaminophen (Tylenol Adult Liq*) 650 mg PO Q4H PRN PRN Reason: FEVER/PAIN Hydrocodone Bitart/Acetaminophen ([place] 5-325 Tab*) 1 tab PO Q4H PRN PRN Reason: PAIN Last Admin: 04/09/18 16:17 Dose: 1 tab Albuterol (Ventolin 2.5 Mg/3 Ml Neb.Terri*) 2.5 mg INH Q2H PRN PRN Reason: SOB/WHEEZING Allopurinol (Zyloprim Tab*) 100 mg PO DAILY [facility] Last Admin: 04/09/18 10:16 Dose: 100 mg Aspirin (Aspirin Ec Tab*) 81 mg PO DAILY [facility] Last Admin: 04/09/18 10:15 Dose: 81 mg Calcitriol (Rocaltrol Cap*) 0.25 mcg PO DAILY [facility] Last Admin: 04/09/18 10:15 Dose: 0.25 mcg Clopidogrel Bisulfate (Plavix Tab*) 75 mg PO DAILY [facility] Last Admin: 04/09/18 10:19 Dose: 75 mg Famotidine (Pepcid Susp*) 20 mg PO DAILY [facility]; Protocol Fish Oil (Fish Oil (Nf)) 1,000 mg PO BID [facility] Last Admin: 04/09/18 10:14 Dose: Not Given Guaifenesin (Mucinex*) 600 mg PO BID [facility] Last Admin: 04/09/18 10:09 Dose: 600 mg Lactase (Lactaid Fast Act (Nf)) 3,000 unit PO TID WITH MEALS PRN; Protocol PRN Reason: DYSPEPSIA Last Admin: 04/09/18 10:16 Dose: 3,000 unit Lactobacillus Rhamnosus (Lactobacillus Acidophilus*) 1 tab PO DAILY [facility] Last Admin: 04/09/18 10:08 Dose: 1 tab Lidocaine (Lidoderm 5% Patch*) 1 patch TRANSDERM DAILY [facility] Last Admin: 04/09/18 10:14 Dose: Not Given Lidocaine/Prilocaine ([place] 5 Gm*) 1 applic TOPICAL ONCE PRN PRN Reason: cannula insertion for dialysis Last Admin: 04/09/18 12:45 Dose: 1 applic Loperamide HCl (Imodium Cap*) 2 mg PO .SEE DIRECTIONS PRN PRN Reason: DIARRHEA Last Admin: 04/06/18 11:36 Dose: 2 mg Magnesium Oxide (Magox 400 Tab*) 400 mg PO BID [facility] Last Admin: 04/09/18 10:17 Dose: 400 mg Megestrol Acetate (Megestrol Susp*) 800 mg PO DAILY [facility] Last Admin: 04/09/18 10:07 Dose: 800 mg Mometasone Furoate/Formoterol Fumar (Dulera 200/5 Mdi*) 2 puff INH BID [facility] Last Admin: 04/09/18 08:02 Dose: 2 puff Multivitamins (Theragran W/Minerals Liq*) 1 ml PO DAILY [facility] Mupirocin (Bactroban 2 % Oint*) 1 applic TOPICAL DAILY [facility] Last Admin: 04/09/18 10:14 Dose: Not Given Nebivolol (Bystolic Tab (Nf)) 10 mg PO DAILY [facility] Last Admin: 04/09/18 10:24 Dose: 10 mg Pantoprazole Sodium (Protonix Tab (Nf)) 40 mg PO BID [facility] Last Admin: 04/09/18 10:24 Dose: 40 mg Pharmacy Profile Note (Lidocaine Patch Remove*) 1 note N/A 2100 [facility] Last Admin: 04/08/18 20:14 Dose: 1 note Rosuvastatin Calcium (Crestor (Nf)) 5 mg PO DAILY [facility]; Protocol Last Admin: 04/09/18 10:26 Dose: 5 mg Sodium Bicarbonate (Sodium Bicarbonate (Antacid)*) 650 mg PO DAILY [facility] Last Admin: 04/09/18 10:08 Dose: 650 mg Trimethoprim/Sulfamethoxazole (Bactrim Susp*) 10 ml PO BID [facility] Vital Signs - 8 hr 04/09/18 04/09/18 04/09/18 09:22 09:25 11:28 Temperature 98.3 F 98.9 F Pulse Rate 101 83 Respiratory 16 18 Rate Blood Pressure 113/47 109/46 (mmHg) O2 Sat by Pulse 96 95 Oximetry 04/09/18 04/09/18 16:17 16:19 Temperature 97.9 F Pulse Rate 80 Respiratory 16 16 Rate Blood Pressure 121/47 (mmHg) O2 Sat by Pulse 100 Oximetry Oxygen Devices in Use Now: None Appearance: Alert, NAD Eyes: No Scleral Icterus, PERRLA Ears/Nose/Mouth/Throat: Mucous Membranes Moist Neck: NL Appearance and Movements; NL JVP, Trachea Midline Respiratory: Symmetrical Chest Expansion and Respiratory Effort, Clear to Auscultation Cardiovascular: NL Sounds; No Murmurs; No JVD, RRR Extremities: No Edema, No Clubbing, Cyanosis Skin: - - large purple hematoma superior to the right antecubital fossa Neurological: Alert and Oriented x 3, NL Sensation, - - general weakness Nutrition: Taking PO's Result Diagrams: 04/06/18 05:23 04/06/18 05:23 Microbiology and Other Data: Microbiology 04/03/18 03:15 Stool Gross Appearance - Final Stool C. difficile DNA Amplification - Final 027 Presumptive NEGATIVE Toxigenic C.diff NEGATIVE Stool Lactoferrin - Final Rotavirus Antigen - Final Negative Rotavirus 04/02/18 07:45 Aerobic Blood Culture - Preliminary Blood Venous No Growth Day 1 Anaerobic Blood Culture - Preliminary No Growth Day 1 04/02/18 07:45 Aerobic Blood Culture - Preliminary Blood Venous No Growth Day 1 Anaerobic Blood Culture - Preliminary No Growth Day 1 04/02/18 16:15 Gram Stain - Final Body Fluid - Peritoneal 04/02/18 07:45 Legionella Urinary Antigen - Final Urine Negative Legionella Antigen Streptococcus pneumoniae Ag Screen - Final Negative S. pneumo Antigen Diagnostic Imaging: Patient Name: NATHANIEL AUGUST Medical Record#: [id number] Ordering Physician: Charlene Pacheco [employer] REPRESENTATIVE Acct.#: [id number] : 1930 Age: 88 Sex: M Location: [address] [place] [address] MEDICAL/TELEMETRY Exam Date: 04/07/18 1101 ADM Status: ADM IN Order Information: CHEST AP PORTABLE Accession Number: [id number] CPT: 43840 INDICATION: Cough COMPARISON: Chest x-ray April 02, 2018 TECHNIQUE: Single AP portable view of the chest was obtained. FINDINGS: Image quality is compromised due to the relative inferiority of a portable chest x-ray. The heart and mediastinum exhibit normal size and contour. Again seen is apparent elevation of the right hemidiaphragm. There is interval development of linear density at the right lung base morphologically most consistent with atelectasis. Otherwise the lungs are grossly clear. There is no evidence of a large pleural effusion. Visualized bones are normal for the patient's age. IMPRESSION: Persistent elevation of the right hemidiaphragm with likely atelectasis at the right lung base. <Electronically signed by Damian Hernandez MD in [place]> 04/07/18 1125 Dictated By: Damian Hernandez MD Dictated Date/Time: 04/07/18 1125 Transcribed Date/Time: 04/07/18 1124 Copy to: Assess/Plan/Problems-Billing Assessment: This is an 88 y/o male with PMH of ESRD on PD with recent peritonitis, bronchiectasis who was admitted on 04/03/18 with weakness and diarrhea 2/2 aeromonas infection, who has now initiated HD today. - Patient Problems (1) Weakness Code(s): R53.1 - WEAKNESS SNOMED Code(s): 33445111 Comment: - Multifactorial, aeromonas infection causing diarrhea, aspiration, lumbar stenosis, ESRD (no peritonitis now) likely all contributing to his continued deconditioning - PT/ OT - Will need STR and transtition to LTC, patient opting to go on HD now so he can stay locally in the area and near his (2) Bronchiectasis Code(s): J47.9 - BRONCHIECTASIS, UNCOMPLICATED SNOMED Code(s): 49382590 Comment: - CXR as above, mild atelectasis, no consolidation - Pulmonary toilet - Continue nebs and dulera (3) CAD (coronary artery disease) Code(s): I25.10 - ATHSCL HEART DISEASE OF [place] CORONARY ARTERY W/O ANG PCTRS SNOMED Code(s): 44917620 Comment: - Asymptomatic. - Continue asa, plavix, and nebivolol (4) COPD (chronic obstructive pulmonary disease) Code(s): J44.9 - CHRONIC OBSTRUCTIVE PULMONARY DISEASE, UNSPECIFIED SNOMED Code(s): 16324381 Comment: - Improved from yesterday, CXR as above (5) Chronic back pain Code(s): M54.9 - DORSALGIA, UNSPECIFIED; G89.29 - OTHER CHRONIC PAIN SNOMED Code(s): 336940301 Comment: - Continue hydrocodone/apap with lidoderm patches daily - Per , has hx of lumbar stenosis (6) Diarrhea Code(s): R19.7 - DIARRHEA, UNSPECIFIED SNOMED Code(s): 31089487 Comment: - Continued diarrhea yesterday, placed on bactrim to treat aeromonas as per ID recommendations - Appears to be improving (7) ESRD on peritoneal dialysis Code(s): N18.6 - END STAGE RENAL DISEASE; Z99.2 - DEPENDENCE ON RENAL DIALYSIS SNOMED Code(s): 58424964 Comment: - Fistula is patent per US - Initiated HD today but infiltrated with hematoma. Per Dr. Ward, will go back on PD tomorrow night and continue through the weekend and then try to re- cannulate on Saturday for HD session again. (8) Hypertension Code(s): I10 - ESSENTIAL (PRIMARY) HYPERTENSION SNOMED Code(s): 09697024 Comment: - Mild hypotension - Hold BP meds for now (9) Dysphagia Code(s): R13.10 - DYSPHAGIA, UNSPECIFIED SNOMED Code(s): 28620124 Comment: - Resolved - Per speech eval, seems to be reflux related rather than dysphagia - Recommend upright OOB for meals with observation to prevent further reflux - CXR with no acute findings (10) DVT prophylaxis Code(s): GSR9882 - SNOMED Code(s): 735588023 Comment: - HSQ discontinued 2/2 large hematoma/bleeding (11) Full code status Code(s): Z78.9 - OTHER SPECIFIED HEALTH STATUS SNOMED Code(s): 111814846 Comment: Status and Disposition: Back on PD for now until Saturday. If HD remains possible, then will DC to rehab, if not, will remain on PD and find PD STR bed. Will discuss with CM.
[2018-04-09] MEDS: Lidocaine Patch REMOVE* 1 NOTE MISC SCH (21:59)
[2018-04-09] MEDS: Sulfamethox/Trimethoprim SUSP* 20 ML UDC PO SCH (22:10)
[2018-04-10] MEDS ORDERED: NS 0.9% 1000 ML* 500 ML IV SCH (01:15)
[2018-04-10] MEDS: Mometasone/Formoter 200/5 MDI INH SCH ×2 (08:12→20:07)
[2018-04-10] MEDS: Mupirocin 2% OINT* TUBE TOPICAL SCH (08:54)
[2018-04-10] MEDS: Famotidine SUSP* 40 MG/5 ML ORAL.SYRIN PO SCH (10:56)
[2018-04-10] MEDS: Multivitamins ADULT w/MIN LIQ* 15 ML UDC PO SCH (10:58)
[2018-04-10] MEDS: Sulfamethox/Trimethoprim SUSP* 20 ML UDC PO SCH ×2 (11:00→22:52)
[2018-04-10] MEDS: Megestrol SUSP* 400 MG/10 ML UDC PO SCH (11:01)
[2018-04-10] MEDS: Allopurinol TAB* 100 MG PO SCH (11:04)
[2018-04-10] MEDS: Clopidogrel TAB* 75 MG PO SCH (11:05)
[2018-04-10] MEDS: Calcitriol CAP* 0.25 MCG PO SCH (11:05)
[2018-04-10] MEDS: Aspirin EC TAB* 81 MG TAB.EC PO SCH (11:07)
[2018-04-10] MEDS: guaiFENesin ER TAB 600 MG PO SCH ×2 (11:07→22:49)
[2018-04-10] MEDS: CMC:Pantoprazole TAB (NF) 40 MG TAB PO SCH ×2 (11:08→22:49)
[2018-04-10] MEDS: Magnesium Oxide TAB* 400 MG PO SCH ×2 (11:09→22:49)
[2018-04-10] MEDS: Lactobacillus Acidophilus* 1 TAB PO SCH (11:09)
[2018-04-10] MEDS: CMCS: OMEGA-3 FATTY ACIDS (NF) 1,000 MG CAP PO SCH ×2 (11:11→22:56)
[2018-04-10] MEDS: Sodium Bicarbonate (ANTACID)* 650 MG TAB PO SCH ×2 (11:11→11:22)
[2018-04-10] MEDS: NEBIVOLOL 2.5 MG PO SCH (11:16)
[2018-04-10] MEDS: CMC:Rosuvastatin (NF) 5 MG TAB PO SCH (11:16)
[2018-04-10] MEDS: Lidocaine PATCH 5%* 1 PATCH TRANSDERM SCH (11:17)
--- NOTE | 2018-04-10 16:38 | PN ---
Subjective Date of Service: 04/10/18 Interval History: PAtient seen and examined. No acute overnight events. Feeling well, cough improved. Denies pain in RUE where HD cannula infiltrated. Denies fever, chills , no SOB, no chest pain. Objective Active Medications: Acetaminophen (Tylenol Adult Liq*) 650 mg PO Q4H PRN PRN Reason: FEVER/PAIN Hydrocodone Bitart/Acetaminophen ([place] 5-325 Tab*) 1 tab PO Q4H PRN PRN Reason: PAIN Last Admin: 04/09/18 22:14 Dose: 1 tab Albuterol (Ventolin 2.5 Mg/3 Ml Neb.Terri*) 2.5 mg INH Q2H PRN PRN Reason: SOB/WHEEZING Allopurinol (Zyloprim Tab*) 100 mg PO DAILY [facility] Last Admin: 04/10/18 11:04 Dose: 100 mg Aspirin (Aspirin Ec Tab*) 81 mg PO DAILY [facility] Last Admin: 04/10/18 11:07 Dose: Not Given Calcitriol (Rocaltrol Cap*) 0.25 mcg PO DAILY [facility] Last Admin: 04/10/18 11:05 Dose: 0.25 mcg Clopidogrel Bisulfate (Plavix Tab*) 75 mg PO DAILY [facility] Last Admin: 04/10/18 11:05 Dose: 75 mg Famotidine (Pepcid Susp*) 20 mg PO DAILY [facility]; Protocol Last Admin: 04/10/18 10:56 Dose: 20 mg Fish Oil (Fish Oil (Nf)) 1,000 mg PO BID [facility] Last Admin: 04/10/18 11:11 Dose: Not Given Guaifenesin (Mucinex*) 600 mg PO BID [facility] Last Admin: 04/10/18 11:07 Dose: Not Given Lactase (Lactaid Fast Act (Nf)) 3,000 unit PO TID WITH MEALS PRN; Protocol PRN Reason: DYSPEPSIA Last Admin: 04/09/18 10:16 Dose: 3,000 unit Lactobacillus Rhamnosus (Lactobacillus Acidophilus*) 1 tab PO DAILY [facility] Last Admin: 04/10/18 11:09 Dose: 1 tab Lidocaine (Lidoderm 5% Patch*) 1 patch TRANSDERM DAILY [facility] Last Admin: 04/10/18 11:17 Dose: 1 patch Lidocaine/Prilocaine ([place]ml[place] 5 Gm*) 1 applic TOPICAL ONCE PRN PRN Reason: cannula insertion for dialysis Last Admin: 04/09/18 12:45 Dose: 1 applic Loperamide HCl (Imodium Cap*) 2 mg PO .SEE DIRECTIONS PRN PRN Reason: DIARRHEA Last Admin: 04/06/18 11:36 Dose: 2 mg Magnesium Oxide (Magox 400 Tab*) 400 mg PO BID [facility] Last Admin: 04/10/18 11:09 Dose: 400 mg Megestrol Acetate (Megestrol Susp*) 800 mg PO DAILY [facility] Last Admin: 04/10/18 11:01 Dose: 800 mg Mometasone Furoate/Formoterol Fumar (Dulera 200/5 Mdi*) 2 puff INH BID [facility] Last Admin: 04/10/18 08:12 Dose: 2 puff Multivitamins (Theragran W/Minerals Liq*) 1 ml PO DAILY [facility] Last Admin: 04/10/18 10:58 Dose: 1 ml Mupirocin (Bactroban 2 % Oint*) 1 applic TOPICAL DAILY [facility] Last Admin: 04/10/18 08:54 Dose: Not Given Nebivolol (Bystolic Tab (Nf)) 10 mg PO DAILY [facility] Last Admin: 04/10/18 11:16 Dose: Not Given Pantoprazole Sodium (Protonix Tab (Nf)) 40 mg PO BID [facility] Last Admin: 04/10/18 11:08 Dose: Not Given Pharmacy Profile Note (Lidocaine Patch Remove*) 1 note N/A 2100 [facility] Last Admin: 04/09/18 21:59 Dose: Not Given Rosuvastatin Calcium (Crestor (Nf)) 5 mg PO DAILY [facility]; Protocol Last Admin: 04/10/18 11:16 Dose: Not Given Sodium Bicarbonate (Sodium Bicarbonate (Antacid)*) 650 mg PO DAILY [facility] Last Admin: 04/10/18 11:22 Dose: Not Given Trimethoprim/Sulfamethoxazole (Bactrim Susp*) 10 ml PO BID [facility] Last Admin: 04/10/18 11:00 Dose: 10 ml Vital Signs - 8 hr 04/10/18 04/10/18 04/10/18 08:51 11:24 15:20 Temperature 98.9 F 97.3 F Pulse Rate 65 81 68 Respiratory 20 20 Rate Blood Pressure 114/56 103/41 (mmHg) O2 Sat by Pulse 97 97 Oximetry Oxygen Devices in Use Now: None Appearance: Alert, NAD Eyes: No Scleral Icterus, PERRLA Ears/Nose/Mouth/Throat: NL Teeth, Lips, Gums, Mucous Membranes Moist Neck: NL Appearance and Movements; NL JVP, Trachea Midline Respiratory: Symmetrical Chest Expansion and Respiratory Effort, Clear to Auscultation Cardiovascular: NL Sounds; No Murmurs; No JVD, RRR Abdominal: NL Sounds; No Tenderness; No Distention Extremities: No Edema, No Clubbing, Cyanosis - RUE large area of dark purple ecchymoses superior to AV fistula, no bleeding noted Skin: No Rash or Ulcers Neurological: Alert and Oriented x 3, - - general weakness Nutrition: Taking PO's Result Diagrams: 04/06/18 05:23 04/06/18 05:23 Microbiology and Other Data: Microbiology 04/03/18 03:15 Stool Gross Appearance - Final Stool C. difficile DNA Amplification - Final 027 Presumptive NEGATIVE Toxigenic C.diff NEGATIVE Stool Lactoferrin - Final Rotavirus Antigen - Final Negative Rotavirus 04/02/18 07:45 Aerobic Blood Culture - Preliminary Blood Venous No Growth Day 1 Anaerobic Blood Culture - Preliminary No Growth Day 1 04/02/18 07:45 Aerobic Blood Culture - Preliminary Blood Venous No Growth Day 1 Anaerobic Blood Culture - Preliminary No Growth Day 1 04/02/18 16:15 Gram Stain - Final Body Fluid - Peritoneal 04/02/18 07:45 Legionella Urinary Antigen - Final Urine Negative Legionella Antigen Streptococcus pneumoniae Ag Screen - Final Negative S. pneumo Antigen Diagnostic Imaging: Patient Name: NATHANIEL AUGUST Medical Record#: [id number] Ordering Physician: Charlene Pacheco NP Acct.#: [id number] : 1930 Age: 88 Sex: M Location: [address] [place] [address] - MEDICAL/TELEMETRY Exam Date: 04/07/18 110 ADM Status: ADM IN Order Information: CHEST AP PORTABLE Accession Number: [id number] CPT: 96989 INDICATION: Cough COMPARISON: Chest x-ray April 02, 2018 TECHNIQUE: Single AP portable view of the chest was obtained. FINDINGS: Image quality is compromised due to the relative inferiority of a portable chest x-ray. The heart and mediastinum exhibit normal size and contour. Again seen is apparent elevation of the right hemidiaphragm. There is interval development of linear density at the right lung base morphologically most consistent with atelectasis. Otherwise the lungs are grossly clear. There is no evidence of a large pleural effusion. Visualized bones are normal for the patient's age. IMPRESSION: Persistent elevation of the right hemidiaphragm with likely atelectasis at the right lung base. <Electronically signed by Damian Hernandez MD in [place]> 04/07/18 1125 Dictated By: Damian Hernandez MD Dictated Date/Time: 04/07/18 1125 Transcribed Date/Time: 04/07/18 1124 Copy to: Assess/Plan/Problems-Billing Assessment: This is an 88 y/o male with PMH of ESRD on PD with recent peritonitis, bronchiectasis who was admitted on 04/03/18 with weakness and diarrhea 2/2 aeromonas infection, who has now initiated HD on 04/09/18. - Patient Problems (1) Weakness Code(s): R53.1 - WEAKNESS SNOMED Code(s): 29608000 Comment: - Multifactorial, aeromonas infection causing diarrhea, aspiration, lumbar stenosis, ESRD (no peritonitis now) likely all contributing to his continued deconditioning - PT/ OT - Will need STR and transtition to LTC, patient opting to go on HD now so he can stay locally in the area and near his (2) Bronchiectasis Code(s): J47.9 - BRONCHIECTASIS, UNCOMPLICATED SNOMED Code(s): 70137166 Comment: - CXR as above, mild atelectasis, no consolidation - Pulmonary toilet - Continue nebs and dulera - Stable (3) CAD (coronary artery disease) Code(s): I25.10 - ATHSCL HEART DISEASE OF [place] CORONARY ARTERY W/O ANG PCTRS SNOMED Code(s): 62707517 Comment: - Asymptomatic. - Continue asa, plavix, and nebivolol (4) COPD (chronic obstructive pulmonary disease) Code(s): J44.9 - CHRONIC OBSTRUCTIVE PULMONARY DISEASE, UNSPECIFIED SNOMED Code(s): 76311047 Comment: - Improved from yesterday, CXR as above (5) Chronic back pain Code(s): M54.9 - DORSALGIA, UNSPECIFIED; G89.29 - OTHER CHRONIC PAIN SNOMED Code(s): 002807069 Comment: - Continue hydrocodone/apap with lidoderm patches daily - Per , has hx of lumbar stenosis (6) Diarrhea Code(s): R19.7 - DIARRHEA, UNSPECIFIED SNOMED Code(s): 12343616 Comment: - Continued diarrhea yesterday, placed on bactrim to treat aeromonas as per ID recommendations - Appears to be improving (7) ESRD on peritoneal dialysis Code(s): N18.6 - END STAGE RENAL DISEASE; Z99.2 - DEPENDENCE ON RENAL DIALYSIS SNOMED Code(s): 38151688 Comment: - Fistula infiltrated during HD yesterday approximately shelter through treatment - As per Dr. Ward, will go back on PD tonight and through the weekend and try again on Saturday for HD and let site heal. (8) Hypertension Code(s): I10 - ESSENTIAL (PRIMARY) HYPERTENSION SNOMED Code(s): 99594779 Comment: - Mild hypotension - Hold BP meds for now (9) Dysphagia Code(s): R13.10 - DYSPHAGIA, UNSPECIFIED SNOMED Code(s): 97985658 Comment: - Resolved - Per speech eval, seems to be reflux related rather than dysphagia - Recommend upright OOB for meals with observation to prevent further reflux - CXR with no acute findings (10) DVT prophylaxis Code(s): IZF6347 - SNOMED Code(s): 751810254 Comment: - HSQ discontinued 2/2 large hematoma/bleeding (11) Full code status Code(s): Z78.9 - OTHER SPECIFIED HEALTH STATUS SNOMED Code(s): 274604509 Comment: Status and Disposition: Back on PD for now until Saturday. If HD remains possible, then will DC to rehab, if not, will remain on PD and find PD STR bed. Will discuss with CM.
[2018-04-10] MEDS: HYDROcodone/ACETAMIN 5-325 MG* 1 TAB PO PRN ×2 (17:55→22:49)
[2018-04-10] MEDS: Lidocaine Patch REMOVE* 1 NOTE MISC SCH (23:36)
[2018-04-11] MEDS: Mometasone/Formoter 200/5 MDI INH SCH (08:44)
[2018-04-11 10:14] VITALS: BP 139/61
[2018-04-11] MEDS: Mupirocin 2% OINT* TUBE TOPICAL SCH (10:23)
[2018-04-11] MEDS: CMCS: OMEGA-3 FATTY ACIDS (NF) 1,000 MG CAP PO SCH (10:24)
[2018-04-11] MEDS: Aspirin EC TAB* 81 MG TAB.EC PO SCH (10:32)
[2018-04-11] MEDS: guaiFENesin ER TAB 600 MG PO SCH (10:32)
[2018-04-11] MEDS: Clopidogrel TAB* 75 MG PO SCH (10:32)
[2018-04-11] MEDS: Allopurinol TAB* 100 MG PO SCH (10:32)
[2018-04-11] MEDS: Calcitriol CAP* 0.25 MCG PO SCH (10:32)
[2018-04-11] MEDS: Magnesium Oxide TAB* 400 MG PO SCH (10:33)
[2018-04-11] MEDS: Lactobacillus Acidophilus* 1 TAB PO SCH (10:33)
[2018-04-11] MEDS: NEBIVOLOL 2.5 MG PO SCH (10:33)
[2018-04-11] MEDS: Sodium Bicarbonate (ANTACID)* 650 MG TAB PO SCH (10:34)
[2018-04-11] MEDS: CMC:Rosuvastatin (NF) 5 MG TAB PO SCH (10:34)
[2018-04-11] MEDS: CMC:Pantoprazole TAB (NF) 40 MG TAB PO SCH (10:34)
[2018-04-11] MEDS: Famotidine SUSP* 40 MG/5 ML ORAL.SYRIN PO SCH (10:45)
[2018-04-11] MEDS: Megestrol SUSP* 400 MG/10 ML UDC PO SCH (10:47)
[2018-04-11] MEDS: Multivitamins ADULT w/MIN LIQ* 15 ML UDC PO SCH (10:49)
[2018-04-11] MEDS: Sulfamethox/Trimethoprim SUSP* 20 ML UDC PO SCH (10:50)
[2018-04-11] MEDS: Lidocaine PATCH 5%* 1 PATCH TRANSDERM SCH (10:51)
--- NOTE | 2018-04-11 22:35 | DS ---
CC: Dr. Castellon; Dr. Patricio; Dr. Ward; Dr. Albert; Dr. Meliton Sheriff* DISCHARGE SUMMARY/ADMISSION HISTORY AND PHYSICAL: DATE OF ADMISSION: 04/02/18 DATE OF DISCHARGE TO SWIN04/11/18 (This dictation will serve as both his discharge from acute care to swing status ). ATTENDING FOR THAT ADMISSION: Dr. Castellon. MY ATTENDING FOR TODAY AND FOR THIS ADMISSION: Dr. Rajinder Patricio* ( dictated by Deanna Pacheco, M[place]). CHIEF COMPLAINT: Weakness. HOSPITAL COURSE: Mr. Farah is an 88-year-old male patient, who initially presented to the hospital on 04/02/18, with a complaint of weakness. He had a previous admission for E. coli peritonitis. He is on peritoneal dialysis and has a PD catheter. He also last month had some aspiration pneumonia and other chronic conditions. The patient was admitted because he was failing at home, having increasing weakness and it was thought that he may have peritonitis again. Peritonitis was ruled out. The patient, however, did have many episodes of diarrhea. He was Hemoccult negative. There was no vomiting. However, his noticed that his weakness became progressive as the diarrhea increased. He was admitted and seen by Infectious Disease and also by Dr. Ward. At that point, stool cultures did reveal aeromonas in the stool and achromobacter in his sputum. His diarrhea persisted. He was placed on loperamide and then ultimately we placed him on Bactrim. Initially, Infectious Disease said we would wait and not treat the infection; however, with the persistent diarrhea, we felt it necessary to treat him and try to clear his infection. The Bactrim should cover both the Achromobacter and the aeromonas. The plan was for the patient to be discharged to short-term rehab; however, because the patient is on peritoneal dialysis, there was some difficulty obtaining bed placement for him. The patient does have an AV fistula in the right upper extremity that was placed in 2015, which was matured. That fistula was evaluated by ultrasound and determined to be viable. Hemodialysis was initiated initially. His HD fistula actually infiltrated during his first treatment on 04/09/18. At that point, we reached out to Dr. Ward, who stated that we should not use the fistula and put the patient back on peritoneal dialysis starting the night of , and continue through the weekend until his fistula heals and is able to be recannulated. Per report we received this morning, hemodialysis cannot be initiated until Saturday; however, the patient is still not able to ambulate and care for himself and is still a candidate for short-term rehab. As such, the patient will be discharged to swing status until his hemodialysis can be initiated. There was a possibility of the patient going to [facility] for short-term rehab, possibly converting to long-term care if needed. The patient was discharged from [address] [place] [address] and taken off telemetry, placed on swing and placed on [address] [place] [address] today. DISCHARGE DIAGNOSES AND ADMISSION DIAGNOSES: 1. Weakness, likely multifactorial, secondary to diarrhea and chronic disease and previous aspiration pneumonia. 2. History of bronchiectasis and atelectasis, which is stable. He is on pulmonary toilet and has achromobacter in the sputum; however, this is currently stable and at his baseline. 3. History of coronary artery disease, stable. 4. Chronic obstructive pulmonary disease, stable. 5. Chronic back pain, on pain medication and stable. 6. Diarrhea, currently on Bactrim for 3 more days. 7. End-stage renal disease, on peritoneal dialysis with plan for hemodialysis next week. 8. History of hypertension, stable. 9. Dysphagia, completely resolved. 10. Deconditioning, likely related to all of the above. Plan for physical therapy. MEDICATIONS: As follows: 1. Allopurinol 100 mg daily. 2. Amiloride 5 mg daily. 3. Aspirin 81 mg daily. 4. Calcitriol 0.25 mcg daily. 5. Plavix 75 mg daily. 6. [place] 1 tablet q.6 hours as needed. 7. Pepcid 1 cap daily. 8. Mag-Ox 400 mg 3 times a day. 9. Megace 625 mg daily. 10. Multivitamin 1 tablet daily. 11. Bystolic 10 mg daily. 12. Nitroglycerin 0.4 mg sublingual q.5 minutes as needed. 13. Omeprazole 20 mg 3 times a day. 14. Rosuvastatin 5 mg daily. 15. Sodium bicarb 650 mg daily. 16. Bactrim 1 tablet 2 times a day. DIET: The patient should have a heart-healthy renal diet. ACTIVITY: He should have physical therapy each day. DVT PROPHYLAXIS: The patient's heparin was stopped given his large hematoma. He can have SCDs while in bed. HEALTHCARE PROXY: The patient's , who is at the bedside. CODE STATUS: The patient is a full code. PHYSICAL EXAMINATION: Day of discharge and admission. Blood pressure is 110/70 , heart rate 74, respiratory rate 18, O2 saturation 97% on room air with a temperature of 98.4. HEENT: The patient is atraumatic and normocephalic. PERRLA. Nonicteric sclerae. Mucosa is moist. Dentition is poor. Neck is supple. No JVD noted. No carotid bruit auscultated. Cardiovascular: S1, S2 present. No murmurs, gallops, or rubs noted. Lungs are clear at the apices bilaterally with no wheezing, rhonchi, or rales. He is diminished at the bases. Abdomen is soft, nontender, and nondistended. Positive bowel sounds in all 4 quadrants. is deferred. Musculoskeletal: There is no clubbing, no cyanosis, no edema. He has +2 distal pulses palpable. He does have a large purple and blue hematoma of the right upper extremity extending up into the axilla. Pressure dressings are clean, dry, and intact. There does not appear to be any acute bleeding or oozing. He has a brisk cap refill on the affected side with good distal pulses. AV fistula does have a thrill and bruit noted. Neurologic: He is intact with no focal deficits. Psychiatric: He is cooperative, alert, and appropriate. DIAGNOSTIC STUDIES/LAB DATA: Last labs drawn on 04/06/18, WBCs 7.5, RBCs 3.19, hemoglobin 10.1, hematocrit 31%, MCV 96, MCH 32, platelets 118. Sodium 132, potassium 3.3, chloride 99, CO2 25, BUN 36, creatinine 3.52, GFR 16.5, glucose 105, lactic acid 1.5. Liver function within normal limits. No further laboratories noted. Chest x-ray dated 04/07/18, shows persistent elevation of the right hemidiaphragm with likely atelectasis at the right lung base, otherwise lungs are grossly clear. I MPRESSION AND PLAN: As above. The patient has been admitted to swing status and will remain on swing until he could be recannulated for dialysis approximately on Saturday, in which case he will be sent to short- term rehab, likely [facility]. DEANNA PACHECO, JUNIOR MEDIA BUYER [id number]/[facility] #: [id number] [facility] ROCHELLE HOSPITALJayden
== END 2018-04-11 11:39 | disposition swing bed (61) | DRG 371 ==
LOC: ED 07:06 → MEDTELE 08:51
PROVIDERS: ADMIT Hospitalist; ATTEND Internal Medicine
PROC: 3E1M39Z Irrigation of Peritoneal Cavity using Dialysate, Percutaneous Approach (ICD-10-PCS; principal; 2018-04-02)
DX: A04.8 Other specified bacterial intestinal infections (principal); N18.6 End stage renal disease; J98.11 Atelectasis; R18.8 Other ascites; I12.0 Hypertensive chronic kidney disease with stage 5 chronic kidney disease or end stage renal disease; K58.0 Irritable bowel syndrome with diarrhea; E78.5 Hyperlipidemia, unspecified; I25.10 Atherosclerotic heart disease of native coronary artery without angina pectoris; K21.9 Gastro-esophageal reflux disease without esophagitis; K57.90 Diverticulosis of intestine, part unspecified, without perforation or abscess without bleeding; M10.9 Gout, unspecified; M19.012 Primary osteoarthritis, left shoulder; M19.011 Primary osteoarthritis, right shoulder; M47.9 Spondylosis, unspecified; F41.9 Anxiety disorder, unspecified; R00.1 Bradycardia, unspecified; G89.29 Other chronic pain; R74.8 Abnormal levels of other serum enzymes; I70.1 Atherosclerosis of renal artery; J47.9 Bronchiectasis, uncomplicated; I73.9 Peripheral vascular disease, unspecified; B96.89 Other specified bacterial agents as the cause of diseases classified elsewhere; M79.81 Nontraumatic hematoma of soft tissue; M48.061 Spinal stenosis, lumbar region without neurogenic claudication; I95.9 Hypotension, unspecified; Z90.6 Acquired absence of other parts of urinary tract; Z79.02 Long term (current) use of antithrombotics/antiplatelets; Z79.82 Long term (current) use of aspirin; Z91.018 Allergy to other foods; Z87.891 Personal history of nicotine dependence; Z85.51 Personal history of malignant neoplasm of bladder; Z90.5 Acquired absence of kidney; Z97.4 Presence of external hearing-aid; Z98.42 Cataract extraction status, left eye; Z98.41 Cataract extraction status, right eye; Z90.79 Acquired absence of other genital organ(s); Z82.49 Family history of ischemic heart disease and other diseases of the circulatory system; Z86.73 Personal history of transient ischemic attack (TIA), and cerebral infarction without residual deficits; Z87.01 Personal history of pneumonia (recurrent); Z80.52 Family history of malignant neoplasm of bladder; Z99.2 Dependence on renal dialysis
CPT/HCPCS: 36415; 71045; 71250; 80048; 80053; 81003; 81015; 83605; 83630; 83735; 84145; 84484; 85025; 85610; 85652; 85730; 86140; 87040; 87045; 87046; 87070; 87077; 87186; 87205; 87425; 87493; 87899; 89051; 90945; 93005; 93306; 93990; 94640; 99285; A9270-GY; G0257; G8978-GP-CK; G8979-GP-CI; G8987-GO-CK; G8988-GO-CI; J0692; J0696; J1644

== ENCOUNTER 2018-04-11 11:53 | Inpatient (IN) | payer MEDICARE, BC ==
[2018-04-11] MEDS ORDERED: Nitroglycerin TAB 0.4 MG* 0.4 MG TAB SL PRN (14:17)
[2018-04-11] MEDS: Magnesium Oxide TAB* 400 MG PO SCH (20:38)
[2018-04-11] MEDS: Sulfamethox/Trimethoprim SS 400/80* TAB PO SCH (20:39)
[2018-04-11] MEDS: CMCS:Pantoprazole TAB (NF) 40 MG TAB PO SCH (20:39)
[2018-04-12] MEDS: CMCS:Nebivolol TAB (NF) 2.5 MG TAB PO SCH (08:58)
[2018-04-12] MEDS ORDERED: Cefdinir cap (NF) 300 MG CAP PO SCH (09:00)
[2018-04-12] MEDS ORDERED: CMCS:Rosuvastatin (NF) 5 MG TAB PO SCH (09:00)
[2018-04-12] MEDS: Megestrol SUSP* 400 MG/10 ML UDC PO SCH (09:55)
[2018-04-12] MEDS: Allopurinol TAB* 100 MG PO SCH (09:57)
[2018-04-12] MEDS: Calcitriol CAP* 0.25 MCG PO SCH (09:57)
[2018-04-12] MEDS: Sodium Bicarbonate (ANTACID)* 650 MG TAB PO SCH (09:58)
[2018-04-12] MEDS: Sulfamethox/Trimethoprim SS 400/80* TAB PO SCH ×2 (09:58→21:22)
[2018-04-12] MEDS: aMILoride TAB* 5 MG PO SCH (09:59)
[2018-04-12] MEDS: Aspirin EC TAB* 81 MG TAB.EC PO SCH (09:59)
[2018-04-12] MEDS: Lactobacillus Acidophilus* 1 TAB PO SCH (10:00)
[2018-04-12] MEDS: Magnesium Oxide TAB* 400 MG PO SCH ×2 (10:00→21:06)
[2018-04-12] MEDS: CMCS:Pantoprazole TAB (NF) 40 MG TAB PO SCH ×2 (10:00→21:06)
[2018-04-12] MEDS: Clopidogrel TAB* 75 MG PO SCH (10:00)
[2018-04-12] MEDS: Multivitamins/Minerals TAB PO SCH (10:00)
[2018-04-12] MEDS: HYDROcodone/ACETAMIN 5-325 MG* 1 TAB PO PRN (18:02)
[2018-04-12] MEDS: CMCS:Rosuvastatin (NF) 5 MG TAB PO SCH (21:06)
[2018-04-13] MEDS: CMCS:Nebivolol TAB (NF) 2.5 MG TAB PO SCH (10:13)
[2018-04-13] MEDS: Clopidogrel TAB* 75 MG PO SCH (10:13)
[2018-04-13] MEDS: Megestrol SUSP* 400 MG/10 ML UDC PO SCH (10:13)
[2018-04-13] MEDS: Sulfamethox/Trimethoprim SS 400/80* TAB PO SCH ×2 (10:13→21:16)
[2018-04-13] MEDS: Sodium Bicarbonate (ANTACID)* 650 MG TAB PO SCH (10:13)
[2018-04-13] MEDS: Calcitriol CAP* 0.25 MCG PO SCH (10:13)
[2018-04-13] MEDS: CMCS:Pantoprazole TAB (NF) 40 MG TAB PO SCH ×2 (10:14→21:16)
[2018-04-13] MEDS: Magnesium Oxide TAB* 400 MG PO SCH ×2 (10:14→21:16)
[2018-04-13] MEDS: Lactobacillus Acidophilus* 1 TAB PO SCH (10:14)
[2018-04-13] MEDS: Multivitamins/Minerals TAB PO SCH (10:14)
[2018-04-13] MEDS: Aspirin EC TAB* 81 MG TAB.EC PO SCH (10:14)
[2018-04-13] MEDS: Allopurinol TAB* 100 MG PO SCH (10:15)
[2018-04-13] MEDS: aMILoride TAB* 5 MG PO SCH (10:15)
--- NOTE | 2018-04-13 14:55 | PN ---
Subjective Date of Service: 04/13/18 Interval History: pt is afraid to eat since every time he eats it "goes through him". No abd pain. Appears discouraged. concerned about continuation of generalized weakness Objective Active Medications: Hydrocodone Bitart/Acetaminophen ([place] 5-325 Tab*) 1 tab PO Q4H PRN PRN Reason: PAIN Last Admin: 04/12/18 18:02 Dose: 1 tab Allopurinol (Zyloprim Tab*) 100 mg PO DAILY [facility] Last Admin: 04/13/18 10:15 Dose: 100 mg Amiloride HCl ([place] Tab*) 5 mg PO DAILY [facility] Last Admin: 04/13/18 10:15 Dose: 5 mg Aspirin (Aspirin Ec Tab*) 81 mg PO DAILY [facility] Last Admin: 04/13/18 10:14 Dose: 81 mg Calcitriol (Rocaltrol Cap*) 0.25 mcg PO DAILY [facility] Last Admin: 04/13/18 10:13 Dose: 0.25 mcg Clopidogrel Bisulfate (Plavix Tab*) 75 mg PO DAILY [facility] Last Admin: 04/13/18 10:13 Dose: 75 mg Lactobacillus Rhamnosus (Lactobacillus Acidophilus*) 1 tab PO DAILY [facility] Last Admin: 04/13/18 10:14 Dose: 1 tab Magnesium Oxide (Magox 400 Tab*) 400 mg PO BID [facility] Last Admin: 04/13/18 10:14 Dose: 400 mg Megestrol Acetate (Megestrol Susp*) 625 mg PO DAILY [facility] Last Admin: 04/13/18 10:13 Dose: 625 mg Multivitamins/Minerals (Theragran/Minerals Tab*) 1 tab PO DAILY [facility] Last Admin: 04/13/18 10:14 Dose: 1 tab Nebivolol (Bystolic Tab (Nf)) 10 mg PO DAILY [facility] Last Admin: 04/13/18 10:13 Dose: 10 mg Nitroglycerin (Nitroglycerin Tab 0.4 Mg*) 0.4 mg SL Q5M PRN PRN Reason: PAIN - CHEST Pantoprazole Sodium (Protonix Tab (Nf)) 40 mg PO BID [facility] Last Admin: 04/13/18 10:14 Dose: 40 mg Rosuvastatin Calcium (Crestor (Nf)) 5 mg PO BEDTIME [facility]; Protocol Last Admin: 04/12/18 21:06 Dose: 5 mg Sodium Bicarbonate (Sodium Bicarbonate (Antacid)*) 650 mg PO DAILY [facility] Last Admin: 04/13/18 10:13 Dose: 650 mg Trimethoprim/Sulfamethoxazole (Bactrim Ss 400/80 Tab*) 1 tab PO BID [facility] Last Admin: 04/13/18 10:13 Dose: 1 tab Vital Signs - 8 hr 04/13/18 04/13/18 04/13/18 08:00 08:24 08:30 Temperature 98.1 F Pulse Rate 98 Respiratory 20 22 20 Rate Blood Pressure 121/39 (mmHg) Oxygen Devices in Use Now: None Appearance: 88 yo M in nAD, aAOx3 Eyes: No Scleral Icterus, PERRLA Ears/Nose/Mouth/Throat: NL Teeth, Lips, Gums, Mucous Membranes Moist Neck: NL Appearance and Movements; NL JVP, Trachea Midline Respiratory: Symmetrical Chest Expansion and Respiratory Effort, - - rhonchi at LLL Cardiovascular: NL Sounds; No Murmurs; No JVD, RRR Abdominal: NL Sounds; No Tenderness; No Distention, No Hepatosplenomegaly, - - PD cath in place, NT Lymphatic: No Cervical Adenopathy Extremities: No Clubbing, Cyanosis Skin: No Nodules or Sclerosis, - - r arm hematoma Neurological: Alert and Oriented x 3, NL Muscle Strength and Tone Assess/Plan/Problems-Billing Assessment: 88 y/o male with PMH of ESRD on PD with recent peritonitis, bronchiectasis who was admitted on 04/03/18 with weakness and diarrhea 2/2 achromobacter infection, initiated HD-his fistula infiltrated and needed to cont on PD, also generalized weakness and aeromonas diarrhea (on Bactrim). Placed on SWING status on 04/11/18 - Patient Problems (1) Diarrhea Comment: - Continued diarrhea despite bactrim to treat aeromonas as per ID recommendations - will start imodium (2) Bronchiectasis Comment: - CXR on 04/07/18, mild atelectasis, no consolidation - Pulmonary toilet - Continue nebs and dulera - Stable (3) CAD (coronary artery disease) Comment: - Asymptomatic. - Continue asa, plavix, and nebivolol (4) COPD (chronic obstructive pulmonary disease) Comment: - not in exacerbation (5) Chronic back pain Comment: - Continue hydrocodone/apap with lidoderm patches daily - Per , has hx of lumbar stenosis (6) ESRD on peritoneal dialysis Comment: - Fistula infiltrated during HD on 04/09/18 approximately senior living through treatment - As per Dr. Ward, cont PD through the and try again on Saturday for HD and let site heal. (7) Weakness Comment: - Multifactorial, aeromonas infection causing diarrhea, aspiration, lumbar stenosis, ESRD (no peritonitis now) likely all contributing to his continued deconditioning - PT/ OT - Will need STR , but unable to do so when on peritoneal dialysis (8) DVT prophylaxis Comment: - HSQ discontinued 2/2 large hematoma/bleeding
[2018-04-13] MEDS: Loperamide LIQ* 2 MG/10 ML UDC PO PRN ×2 (18:10→21:16)
[2018-04-13] MEDS: HYDROcodone/ACETAMIN 5-325 MG* 1 TAB PO PRN (21:14)
[2018-04-13] MEDS: CMCS:Rosuvastatin (NF) 5 MG TAB PO SCH (21:16)
[2018-04-13] MEDS ORDERED: Melatonin 3 MG TAB PO ONE (21:51)
[2018-04-13] MEDS: Melatonin 3 MG TAB PO PRN (21:55)
[2018-04-14 06:54] LABS: Hematocrit 27 % (42-52); Hemoglobin 8.9 g/dl (14.0-18.0); Mean Corpuscular HGB Conc 33 g/dl (31-36); Mean Corpuscular Hemoglobin 32 pg (27-31); Mean Corpuscular Volume 95 fL (80-94); Mean Platelet Volume 6.6 um3 (7.4-10.4); Platelet Count 176 10^3/ul (150-450); Red Blood Count 2.83 10^6/ul (4.00-5.40); Red Cell Distribution Width 15 % (10.5-15); White Blood Count 6.9 10^3/ul (3.5-10.8)
[2018-04-14] MEDS ORDERED: Epoetin Alfa* 10,000 UNITS/ML VIAL SUBCUT ONE (09:30)
[2018-04-14] MEDS: CMCS:Nebivolol TAB (NF) 2.5 MG TAB PO SCH (10:07)
[2018-04-14] MEDS: Multivitamins/Minerals TAB PO SCH (10:17)
[2018-04-14] MEDS: aMILoride TAB* 5 MG PO SCH (10:17)
[2018-04-14] MEDS: Clopidogrel TAB* 75 MG PO SCH (10:17)
[2018-04-14] MEDS: Megestrol SUSP* 400 MG/10 ML UDC PO SCH (10:17)
[2018-04-14] MEDS: Allopurinol TAB* 100 MG PO SCH (10:17)
[2018-04-14] MEDS: Aspirin EC TAB* 81 MG TAB.EC PO SCH (10:17)
[2018-04-14] MEDS: Sodium Bicarbonate (ANTACID)* 650 MG TAB PO SCH (10:17)
[2018-04-14] MEDS: Sulfamethox/Trimethoprim SS 400/80* TAB PO SCH ×2 (10:17→20:37)
[2018-04-14] MEDS: CMCS:Pantoprazole TAB (NF) 40 MG TAB PO SCH ×2 (10:17→20:37)
[2018-04-14] MEDS: Calcitriol CAP* 0.25 MCG PO SCH (10:17)
[2018-04-14] MEDS: Magnesium Oxide TAB* 400 MG PO SCH ×2 (10:17→20:37)
[2018-04-14] MEDS: Lactobacillus Acidophilus* 1 TAB PO SCH (10:17)
[2018-04-14] MEDS: CMCS:Rosuvastatin (NF) 5 MG TAB PO SCH (20:36)
[2018-04-14] MEDS: Melatonin 3 MG TAB PO PRN (20:36)
[2018-04-14] MEDS: HYDROcodone/ACETAMIN 5-325 MG* 1 TAB PO PRN (20:37)
[2018-04-15] MEDS: Magnesium Oxide TAB* 400 MG PO SCH ×2 (09:28→21:06)
[2018-04-15] MEDS: Lactobacillus Acidophilus* 1 TAB PO SCH (09:28)
[2018-04-15] MEDS: Sulfamethox/Trimethoprim SS 400/80* TAB PO SCH ×2 (09:28→21:06)
[2018-04-15] MEDS: Megestrol SUSP* 400 MG/10 ML UDC PO SCH (09:28)
[2018-04-15] MEDS: Clopidogrel TAB* 75 MG PO SCH (09:28)
[2018-04-15] MEDS: Sodium Bicarbonate (ANTACID)* 650 MG TAB PO SCH (09:28)
[2018-04-15] MEDS: Multivitamins/Minerals TAB PO SCH (09:28)
[2018-04-15] MEDS: CMCS: Nebivolol TAB (NF) 2.5 MG TAB PO SCH (09:28)
[2018-04-15] MEDS: CMCS:Pantoprazole TAB (NF) 40 MG TAB PO SCH ×2 (09:28→21:06)
[2018-04-15] MEDS: Calcitriol CAP* 0.25 MCG PO SCH (09:28)
[2018-04-15] MEDS: aMILoride TAB* 5 MG PO SCH (09:28)
[2018-04-15] MEDS: Aspirin EC TAB* 81 MG TAB.EC PO SCH (09:28)
[2018-04-15] MEDS: Allopurinol TAB* 100 MG PO SCH (09:28)
[2018-04-15] MEDS: Mupirocin 2% OINT* TUBE TOPICAL SCH (09:53)
[2018-04-15] MEDS: HYDROcodone/ACETAMIN 5-325 MG* 1 TAB PO PRN ×2 (12:48→23:56)
[2018-04-15] MEDS: Lidocaine PATCH 5%* 1 PATCH TRANSDERM SCH ×2 (13:02→13:15)
[2018-04-15] MEDS: Lidocaine Patch REMOVE* 1 NOTE MISC SCH (21:06)
[2018-04-15] MEDS: CMCS:Rosuvastatin (NF) 5 MG TAB PO SCH (21:06)
[2018-04-16] MEDS ORDERED: Epoetin Alfa* 10,000 UNITS/ML VIAL IV ONE (09:30)
[2018-04-16] MEDS: HYDROcodone/ACETAMIN 5-325 MG* 1 TAB PO PRN ×2 (15:12→19:42)
[2018-04-16] MEDS: Lidocaine PATCH 5%* 1 PATCH TRANSDERM SCH (15:12)
[2018-04-16] MEDS: Aspirin EC TAB* 81 MG TAB.EC PO SCH (15:18)
[2018-04-16] MEDS: Allopurinol TAB* 100 MG PO SCH (15:18)
[2018-04-16] MEDS: aMILoride TAB* 5 MG PO SCH (15:18)
[2018-04-16] MEDS: Sodium Bicarbonate (ANTACID)* 650 MG TAB PO SCH (15:19)
[2018-04-16] MEDS: Clopidogrel TAB* 75 MG PO SCH (15:19)
[2018-04-16] MEDS: Lactobacillus Acidophilus* 1 TAB PO SCH (15:19)
[2018-04-16] MEDS: Multivitamins/Minerals TAB PO SCH (15:19)
[2018-04-16] MEDS: CMCS:Pantoprazole TAB (NF) 40 MG TAB PO SCH ×2 (15:19→19:42)
[2018-04-16] MEDS: Magnesium Oxide TAB* 400 MG PO SCH ×2 (15:19→19:42)
[2018-04-16] MEDS: Megestrol SUSP* 400 MG/10 ML UDC PO SCH (15:19)
[2018-04-16] MEDS: CMCS: Nebivolol TAB (NF) 2.5 MG TAB PO SCH (15:19)
[2018-04-16] MEDS: Calcitriol CAP* 0.25 MCG PO SCH (15:19)
[2018-04-16] MEDS: Mupirocin 2% OINT* TUBE TOPICAL SCH (15:19)
--- NOTE | 2018-04-16 16:08 | PN ---
Subjective Date of Service: 04/16/18 Interval History: pt refused his meds today, stated that he may or may not agree to take them tomorrow. presents in room during the discussion. Pt "hated hemodialysis" due to back pain, and never wants to have it again. Agrees to continuation of PD even though it means that he will need to go to STR far way from home. Spoke with pt about the possibility of stopping treatment and dialysis if he chooses to do so.Pt is aware of it, but not requesting to do so Discussed with PT code status , asked me to leave MOLST form in room , but did not changed his code status Objective Active Medications: Hydrocodone Bitart/Acetaminophen ([place] 5-325 Tab*) 1 tab PO Q4H PRN PRN Reason: PAIN Last Admin: 04/16/18 15:12 Dose: 1 tab Allopurinol (Zyloprim Tab*) 100 mg PO DAILY [facility] Last Admin: 04/16/18 15:18 Dose: Not Given Amiloride HCl (Midamor Tab*) 5 mg PO DAILY [facility] Last Admin: 04/16/18 15:18 Dose: Not Given Aspirin (Aspirin Ec Tab*) 81 mg PO DAILY [facility] Last Admin: 04/16/18 15:18 Dose: Not Given Calcitriol (Rocaltrol Cap*) 0.25 mcg PO DAILY [facility] Last Admin: 04/16/18 15:19 Dose: Not Given Clopidogrel Bisulfate (Plavix Tab*) 75 mg PO DAILY [facility] Last Admin: 04/16/18 15:19 Dose: Not Given Lactobacillus Rhamnosus (Lactobacillus Acidophilus*) 1 tab PO DAILY [facility] Last Admin: 04/16/18 15:19 Dose: Not Given Lidocaine (Lidoderm 5% Patch*) 1 patch TRANSDERM DAILY [facility] Last Admin: 04/16/18 15:12 Dose: 1 patch Loperamide HCl (Imodium Liq*) 2 mg PO BID PRN PRN Reason: DIARRHEA Last Admin: 04/13/18 21:16 Dose: 2 mg Magnesium Oxide (Magox 400 Tab*) 400 mg PO BID [facility] Last Admin: 04/16/18 15:19 Dose: Not Given Megestrol Acetate (Megestrol Susp*) 625 mg PO DAILY [facility] Last Admin: 04/16/18 15:19 Dose: Not Given Melatonin (Melatonin) 6 mg PO BEDTIME PRN PRN Reason: SLEEP Last Admin: 04/14/18 20:36 Dose: 6 mg Multivitamins/Minerals (Theragran/Minerals Tab*) 1 tab PO DAILY [facility] Last Admin: 04/16/18 15:19 Dose: Not Given Mupirocin (Bactroban 2 % Oint*) 1 applic TOPICAL DAILY [facility] Last Admin: 04/16/18 15:19 Dose: Not Given Nebivolol (Bystolic Tab (Nf)) 10 mg PO DAILY [facility] Last Admin: 04/16/18 15:19 Dose: Not Given Nitroglycerin (Nitroglycerin Tab 0.4 Mg*) 0.4 mg SL Q5M PRN PRN Reason: PAIN - CHEST Pantoprazole Sodium (Protonix Tab (Nf)) 40 mg PO BID [facility] Last Admin: 04/16/18 15:19 Dose: Not Given Pharmacy Profile Note (Lidocaine Patch Remove*) 1 note N/A 2100 [facility] Last Admin: 04/15/18 21:06 Dose: 1 note Rosuvastatin Calcium (Crestor (Nf)) 5 mg PO BEDTIME [facility]; Protocol Last Admin: 04/15/18 21:06 Dose: 5 mg Sodium Bicarbonate (Sodium Bicarbonate (Antacid)*) 650 mg PO DAILY [facility] Last Admin: 04/16/18 15:19 Dose: Not Given Vital Signs - 8 hr 04/16/18 04/16/18 08:30 15:12 Respiratory 16 Rate Blood Pressure 128/64 (mmHg) Oxygen Devices in Use Now: None Appearance: 88 yo M in nAD, aAOx3. appears weak, deconditioned, chronically ill Eyes: No Scleral Icterus, PERRLA Ears/Nose/Mouth/Throat: NL Teeth, Lips, Gums, Mucous Membranes Moist Neck: NL Appearance and Movements; NL JVP, Trachea Midline Respiratory: Symmetrical Chest Expansion and Respiratory Effort, - - rhonchi at b/l lower lungs Cardiovascular: NL Sounds; No Murmurs; No JVD, RRR Abdominal: NL Sounds; No Tenderness; No Distention Lymphatic: No Cervical Adenopathy Extremities: No Clubbing, Cyanosis, - - R arm with mild edema-hematoma resolving , HD fistula in R arm Neurological: Alert and Oriented x 3, - - generalized weakness, no focal deficit Result Diagrams: 04/14/18 06:37 04/14/18 06:37 Assess/Plan/Problems-Billing Assessment: 88 y/o male with PMH of ESRD on PD with recent peritonitis, bronchiectasis who was admitted on 04/03/18 with weakness and diarrhea 2/2 achromobacter infection, initiated HD-his fistula infiltrated and needed to cont on PD, also generalized weakness and aeromonas diarrhea (on Bactrim). Placed on SWING status on 04/11/18 - Patient Problems (1) Diarrhea Comment: Diarrhea resolved. will stop Bactrim cont imodium prn (2) Bronchiectasis Comment: - CXR on 04/07/18, mild atelectasis, no consolidation - Pulmonary toilet - Continue nebs and dulera - Stable (3) CAD (coronary artery disease) Comment: - Asymptomatic. - Continue asa, plavix, and nebivolol (4) COPD (chronic obstructive pulmonary disease) Comment: - not in exacerbation (5) Chronic back pain Comment: - Continue hydrocodone/apap with lidoderm patches daily - Per , has hx of lumbar stenosis (6) ESRD on peritoneal dialysis Comment: - Fistula infiltrated during HD on 04/09/18 approximately chcf through treatment - restarted HD on 04/16/18 and pt did well, but c/o back pain and refuses to have further HD. Opted to have PD and be placed in STR further to home. (7) Weakness Comment: - Multifactorial, aeromonas infection causing diarrhea, aspiration, lumbar stenosis, ESRD (no peritonitis now) likely all contributing to his continued deconditioning (8) DVT prophylaxis Comment: - HSQ discontinued 2/2 large hematoma/bleeding Status and Disposition: SWING, awaiting STR
[2018-04-16] MEDS: Melatonin 3 MG TAB PO PRN (19:41)
[2018-04-16] MEDS: CMCS:Rosuvastatin (NF) 5 MG TAB PO SCH (19:41)
[2018-04-16] MEDS: Lidocaine Patch REMOVE* 1 NOTE MISC SCH (19:42)
[2018-04-17] MEDS: Allopurinol TAB* 100 MG PO SCH (09:55)
[2018-04-17] MEDS: Aspirin EC TAB* 81 MG TAB.EC PO SCH (09:55)
[2018-04-17] MEDS: Lactobacillus Acidophilus* 1 TAB PO SCH (09:56)
[2018-04-17] MEDS: Lidocaine PATCH 5%* 1 PATCH TRANSDERM SCH (09:56)
[2018-04-17] MEDS: Calcitriol CAP* 0.25 MCG PO SCH (09:56)
[2018-04-17] MEDS: Clopidogrel TAB* 75 MG PO SCH (09:56)
[2018-04-17] MEDS: Megestrol SUSP* 400 MG/10 ML UDC PO SCH (09:57)
[2018-04-17] MEDS: Magnesium Oxide TAB* 400 MG PO SCH ×2 (09:57→21:33)
[2018-04-17] MEDS: CMCS:Pantoprazole TAB (NF) 40 MG TAB PO SCH ×2 (09:58→21:34)
[2018-04-17] MEDS: Multivitamins/Minerals TAB PO SCH (09:58)
[2018-04-17] MEDS: Sodium Bicarbonate (ANTACID)* 650 MG TAB PO SCH (09:58)
[2018-04-17] MEDS: Mupirocin 2% OINT* TUBE TOPICAL SCH (09:59)
[2018-04-17] MEDS: CMCS: Nebivolol TAB (NF) 2.5 MG TAB PO SCH (09:59)
--- NOTE | 2018-04-17 17:04 | PN ---
Progress Note - Progress Note Date of Service: 04/17/18 Note: Pt decided to be DNR and MOLST was signed. Had a meeting with pt and pt's re: possible hospice placement. Pt is aware that if he decides to be taken off PD he is eligible for hospice. Hospice referral was sent. Pt is unsure if he wants to do that. He is aware that without PD he may in the next several weeks . For the time being he agreed to continue to pursue STR with PD capacity. Approx 30 min spent with pt.
[2018-04-17] MEDS: HYDROcodone/ACETAMIN 5-325 MG* 1 TAB PO PRN ×2 (17:53→22:34)
[2018-04-17] MEDS: CMCS:Rosuvastatin (NF) 5 MG TAB PO SCH (21:34)
[2018-04-17] MEDS: Lidocaine Patch REMOVE* 1 NOTE MISC SCH (21:38)
[2018-04-18] MEDS: Magnesium Oxide TAB* 400 MG PO SCH ×2 (08:59→20:59)
[2018-04-18] MEDS: Multivitamins/Minerals TAB PO SCH (09:00)
[2018-04-18] MEDS: CMCS:Pantoprazole TAB (NF) 40 MG TAB PO SCH ×2 (09:00→20:59)
[2018-04-18] MEDS: Sodium Bicarbonate (ANTACID)* 650 MG TAB PO SCH (09:00)
[2018-04-18] MEDS: Lidocaine PATCH 5%* 1 PATCH TRANSDERM SCH (10:04)
[2018-04-18] MEDS: HYDROcodone/ACETAMIN 5-325 MG* 1 TAB PO PRN ×2 (10:07→20:54)
[2018-04-18] MEDS: Calcitriol CAP* 0.25 MCG PO SCH (10:08)
[2018-04-18] MEDS: Clopidogrel TAB* 75 MG PO SCH (10:08)
[2018-04-18] MEDS: Aspirin EC TAB* 81 MG TAB.EC PO SCH (10:08)
[2018-04-18] MEDS: Lactobacillus Acidophilus* 1 TAB PO SCH (10:11)
[2018-04-18] MEDS: Allopurinol TAB* 100 MG PO SCH (10:11)
[2018-04-18] MEDS: Megestrol SUSP* 400 MG/10 ML UDC PO SCH (10:12)
[2018-04-18] MEDS: Mupirocin 2% OINT* TUBE TOPICAL SCH (11:29)
[2018-04-18] MEDS: Melatonin 3 MG TAB PO PRN (20:54)
[2018-04-18] MEDS: Lidocaine Patch REMOVE* 1 NOTE MISC SCH (20:58)
[2018-04-18] MEDS: CMCS:Rosuvastatin (NF) 5 MG TAB PO SCH (20:59)
[2018-04-19 07:04] LABS: Hematocrit 30 % (42-52); Hemoglobin 9.5 g/dl (14.0-18.0); Mean Corpuscular HGB Conc 32 g/dl (31-36); Mean Corpuscular Hemoglobin 31 pg (27-31); Mean Corpuscular Volume 95 fL (80-94); Platelet Count 288 10^3/ul (150-450); Red Blood Count 3.09 10^6/ul (4.00-5.40); Red Cell Distribution Width 16 % (10.5-15); White Blood Count 5.3 10^3/ul (3.5-10.8)
[2018-04-19 07:21] LABS: EGFR Non-African American 14.2 (>60)
[2018-04-19] MEDS: Lidocaine PATCH 5%* 1 PATCH TRANSDERM SCH (07:25)
[2018-04-19] MEDS: Lactobacillus Acidophilus* 1 TAB PO SCH (07:26)
[2018-04-19] MEDS: Allopurinol TAB* 100 MG PO SCH (07:26)
[2018-04-19] MEDS: Aspirin EC TAB* 81 MG TAB.EC PO SCH (07:26)
[2018-04-19] MEDS: Calcitriol CAP* 0.25 MCG PO SCH (07:26)
[2018-04-19] MEDS: Megestrol SUSP* 400 MG/10 ML UDC PO SCH (07:27)
[2018-04-19] MEDS: Multivitamins/Minerals TAB PO SCH (07:27)
[2018-04-19] MEDS: Magnesium Oxide TAB* 400 MG PO SCH ×2 (07:27→21:17)
[2018-04-19] MEDS: CMCS:Pantoprazole TAB (NF) 40 MG TAB PO SCH ×2 (07:27→21:17)
[2018-04-19] MEDS: Sodium Bicarbonate (ANTACID)* 650 MG TAB PO SCH (07:27)
[2018-04-19] MEDS: Clopidogrel TAB* 75 MG PO SCH (07:27)
[2018-04-19] MEDS: Mupirocin 2% OINT* TUBE TOPICAL SCH (07:27)
[2018-04-19] MEDS: HYDROcodone/ACETAMIN 5-325 MG* 1 TAB PO PRN (21:07)
[2018-04-19] MEDS: Melatonin 3 MG TAB PO PRN (21:07)
[2018-04-19] MEDS: Lidocaine Patch REMOVE* 1 NOTE MISC SCH (21:16)
[2018-04-19] MEDS: CMCS:Rosuvastatin (NF) 5 MG TAB PO SCH (21:17)
[2018-04-20] MEDS: Lidocaine PATCH 5%* 1 PATCH TRANSDERM SCH (07:49)
[2018-04-20] MEDS: HYDROcodone/ACETAMIN 5-325 MG* 1 TAB PO PRN ×2 (07:54→21:05)
[2018-04-20] MEDS: Multivitamins/Minerals TAB PO SCH (12:23)
[2018-04-20] MEDS: Sodium Bicarbonate (ANTACID)* 650 MG TAB PO SCH (12:23)
[2018-04-20] MEDS: Mupirocin 2% OINT* TUBE TOPICAL SCH (12:23)
[2018-04-20] MEDS: CMCS:Pantoprazole TAB (NF) 40 MG TAB PO SCH ×2 (12:23→21:00)
[2018-04-20] MEDS: Lactobacillus Acidophilus* 1 TAB PO SCH (12:24)
[2018-04-20] MEDS: Magnesium Oxide TAB* 400 MG PO SCH ×2 (12:24→21:00)
[2018-04-20] MEDS: Calcitriol CAP* 0.25 MCG PO SCH (13:06)
[2018-04-20] MEDS: Aspirin EC TAB* 81 MG TAB.EC PO SCH (13:06)
[2018-04-20] MEDS: Clopidogrel TAB* 75 MG PO SCH (13:06)
[2018-04-20] MEDS: Allopurinol TAB* 100 MG PO SCH (13:06)
[2018-04-20] MEDS: Megestrol SUSP* 400 MG/10 ML UDC PO SCH (13:10)
[2018-04-20] MEDS ORDERED: Heparin DIALYSIS ONLY(*) 1,000 UNITS/ML VIAL DIALYSIS ONE (15:00)
[2018-04-20] MEDS: CMCS:Rosuvastatin (NF) 5 MG TAB PO SCH (21:00)
[2018-04-20] MEDS: Lidocaine Patch REMOVE* 1 NOTE MISC SCH (21:00)
[2018-04-20] MEDS: Loperamide LIQ* 2 MG/10 ML UDC PO PRN (21:04)
[2018-04-20] MEDS: Melatonin 3 MG TAB PO PRN (21:05)
[2018-04-21] MEDS: Allopurinol TAB* 100 MG PO SCH (09:08)
[2018-04-21] MEDS: Mupirocin 2% OINT* TUBE TOPICAL SCH (09:09)
[2018-04-21] MEDS: Clopidogrel TAB* 75 MG PO SCH (09:09)
[2018-04-21] MEDS: Multivitamins/Minerals TAB PO SCH (09:09)
[2018-04-21] MEDS: CMCS:Pantoprazole TAB (NF) 40 MG TAB PO SCH ×2 (09:09→19:59)
[2018-04-21] MEDS: Calcitriol CAP* 0.25 MCG PO SCH (09:09)
[2018-04-21] MEDS: Megestrol SUSP* 400 MG/10 ML UDC PO SCH (09:09)
[2018-04-21] MEDS: Sodium Bicarbonate (ANTACID)* 650 MG TAB PO SCH (09:09)
[2018-04-21] MEDS: Lactobacillus Acidophilus* 1 TAB PO SCH (09:09)
[2018-04-21] MEDS: Aspirin EC TAB* 81 MG TAB.EC PO SCH (09:09)
[2018-04-21] MEDS: Magnesium Oxide TAB* 400 MG PO SCH ×2 (09:09→20:01)
[2018-04-21] MEDS: Lidocaine PATCH 5%* 1 PATCH TRANSDERM SCH (09:11)
[2018-04-21] MEDS: HYDROcodone/ACETAMIN 5-325 MG* 1 TAB PO PRN ×2 (09:11→19:46)
[2018-04-21] MEDS: Melatonin 3 MG TAB PO PRN (19:47)
[2018-04-21] MEDS: Lidocaine Patch REMOVE* 1 NOTE MISC SCH (20:01)
[2018-04-21] MEDS: CMCS:Rosuvastatin (NF) 5 MG TAB PO SCH (20:01)
[2018-04-22] MEDS: Aspirin EC TAB* 81 MG TAB.EC PO SCH (09:06)
[2018-04-22] MEDS: Calcitriol CAP* 0.25 MCG PO SCH (09:06)
[2018-04-22] MEDS: Clopidogrel TAB* 75 MG PO SCH (09:06)
[2018-04-22] MEDS: Magnesium Oxide TAB* 400 MG PO SCH (09:06)
[2018-04-22] MEDS: Megestrol SUSP* 400 MG/10 ML UDC PO SCH (09:06)
[2018-04-22] MEDS: Lactobacillus Acidophilus* 1 TAB PO SCH (09:06)
[2018-04-22] MEDS: Allopurinol TAB* 100 MG PO SCH (09:06)
[2018-04-22] MEDS: Mupirocin 2% OINT* TUBE TOPICAL SCH (09:07)
[2018-04-22] MEDS: Multivitamins/Minerals TAB PO SCH (09:07)
[2018-04-22] MEDS: CMCS:Pantoprazole TAB (NF) 40 MG TAB PO SCH (09:07)
[2018-04-22] MEDS: Sodium Bicarbonate (ANTACID)* 650 MG TAB PO SCH (09:07)
[2018-04-22] MEDS: Lidocaine PATCH 5%* 1 PATCH TRANSDERM SCH (09:12)
[2018-04-22 14:32] VITALS: BP 105/54
--- NOTE | 2018-04-22 14:47 | DS ---
AMENDED REPORT NOW INCLUDES COSIGNER DESIGNATION - ESIGNED BEFORE ADJUSTMENT CC: Dr. Meliton Sheriff; Dr. Baldo Lorenzo; Dr. Krystin Huerta from Hospice * DISCHARGE SUMMARY: DATE OF ADMISSION: To swing status, 04/11/18 DATE OF INITIAL ADMISSION: 04/02/18 DATE OF DISCHARGE: 04/22/18 PRIMARY CARE PROVIDER: Dr. Meliton Sheriff. ATTENDING ON THIS CASE: Dr. Baldo Lorenzo.* (DICTATED BY DEANNA HOLLEY, MENDOZA) HOSPITAL COURSE: This is a pleasant 88-year-old male patient, who was placed on swing status after having an extended hospital stay secondary to his peritoneal dialysis. The patient was awaiting short-term placement at a facility that could accommodate his peritoneal dialysis; however, we were not able to obtain that bed and after much back and forth with the patient and the museum informatics specialist, patient opted then to start hemodialysis to have placement at a closer facility. The patient did not tolerate hemodialysis and he had very long conversation with Dr. Ward about his possibilities. The patient stated his understanding that if he does not continue with either hemodialysis or peritoneal dialysis that he would not able to sustain life. The patient agreed to be referred for hospice services; at that point his also was in agreement. The patient was made a DNR and was referred to long-term care nursing with hospice sign on. The patient will be transferred to [facility] this afternoon. He has been accepted and Hospice has been notified. PAST MEDICAL HISTORY: Significant for general weakness, ESRD, bronchiectasis, coronary artery disease, COPD, chronic back pain, diarrhea, hypertension, and dysphagia. MEDICATIONS: His medications at discharge have been adjusted, some medications have been discontinued. Currently, he is on: 1. Hydrocodone/acetaminophen 10/325 one tablet q.4 hours as needed. 2. Breo Ellipta inhaler 1 puff p.o. daily. 3. Sodium bicarb 1 tablet daily. 4. Bystolic 10 mg daily. 5. Multivitamin 1 tablet daily. 6. Megace 625 mg daily. 7. Plavix 1 tablet daily. 8. Calcitriol 1 cap p.o. daily. 9. Amiloride 5 mg daily. 10. Allopurinol 100 mg daily. 11. Melatonin 6 mg at bedtime as needed. 12. Loperamide 2 mg 2 times a day as needed. 13. Lidoderm 1 patch transdermal daily. REVIEW OF SYSTEMS: The patient denies any fever or chills. No headache. No chest pain, no acute shortness of breath. No nausea, no vomiting, and no further constitutional complaints. PHYSICAL EXAMINATION: On day of discharge, he is a very deconditioned, ill- appearing gentleman, not in any acute distress. Vital Signs: Blood pressure 99 /30, heart rate 73, O2 saturation between 86% and 93% on room air, respiratory rate of 16, temperature was 98.7. HEENT: The patient is atraumatic, normocephalic. PERRLA with nonicteric sclerae. Neck is supple, nontender. No JVD noted. No carotid bruit auscultated. Cardiovascular: S1, S2 present. Rate and rhythm are irregular. Lungs are diminished bilaterally at the bases with some scattered rhonchi, greater on the right than the left. Abdomen is soft, nontender, and nondistended. Positive bowel sounds in all 4 quadrants. He does have his peritoneal dialysis catheter site which is clean, dry, and intact. is deferred. Musculoskeletal: There is no clubbing and no cyanosis. He has bipedal edema at baseline. He has brisk cap refill. He has decreased range of motion and generalized weakness throughout. The patient has not been out of bed in several days. Skin is dry and intact, sallow appearing. He has edema in the right upper extremity and some discoloration secondary to his HD fistula that had infiltrated. He has some persistent edema in that area. Neurologic: He is alert and oriented x2. He is sometimes intermittently forgetful, but always appropriate. Right upper extremity: LABORATORY DATA: On 04/19/18: WBC 5.3, RBC 3.09, hemoglobin 9.5, hematocrit 30 , platelets 288. Sodium 137, potassium 3.5, chloride 103, CO2 26, BUN 32, creatinine 4.01, GFR 14.2, glucose 91, calcium 8.1. DISPOSITION: The [facility]. ACTIVITY: Can be out of bed as tolerated, although he does require 2-person max assist. DIET: Regular consistency as tolerated with no restrictions, emphasis on comfort foods and comfort care. CODE STATUS: The patient is a DNR. The MOLST form has been updated. FOLLOWUPS: The patient's was instructed to follow up with Hospice that will sign the patient on after he is discharged to [facility]. TIME SPENT: Time spent on this discharge greater than 30 minutes interfacing with the patient, his and the staff and coordination of care. DEANNA HOLLEY, MENDOZA [id number]/CPS #: [id number] DARRYL
== END 2018-04-22 14:30 | disposition hospice, home (50) | DRG 682 ==
LOC: MED 11:54
PROVIDERS: ADMIT Nurse Practitioner Adult Health; ATTEND Internal Medicine
PROC: 3E1M39Z Irrigation of Peritoneal Cavity using Dialysate, Percutaneous Approach (ICD-10-PCS; principal; 2018-04-11)
PROC: 5A1D70Z Performance of Urinary Filtration, Intermittent, Less than 6 Hours Per Day (ICD-10-PCS; 2018-04-16)
DX: I13.11 Hypertensive heart and chronic kidney disease without heart failure, with stage 5 chronic kidney disease, or end stage renal disease (principal); N18.6 End stage renal disease; I25.10 Atherosclerotic heart disease of native coronary artery without angina pectoris; R53.1 Weakness; J44.9 Chronic obstructive pulmonary disease, unspecified; M54.9 Dorsalgia, unspecified; R19.7 Diarrhea, unspecified; R13.10 Dysphagia, unspecified; Z66 Do not resuscitate; Z75.1 Person awaiting admission to adequate facility elsewhere; Z99.2 Dependence on renal dialysis; Z79.02 Long term (current) use of antithrombotics/antiplatelets; Z79.82 Long term (current) use of aspirin; Z79.899 Other long term (current) drug therapy
CPT/HCPCS: 36415; 80048; 82330; 83735; 84100; 85027; 86704; 86706; 87340; 93005; A9270-GY; G8978-GP-CK; G8979-GP-CI; J0885; J1644